=== PATIENT | female | born 1990 | race Caucasian/White ===

== ENCOUNTER 2024-06-02 20:19 | Inpatient (IN) ==
[2024-06-02 21:13] LABS: Appearance Urine Turbid (Clear); Bacteria Urine Automated 4+ (None Seen); Bilirubin Urine Negative (Negative); Blood Urine Negative (Negative); Cast Urine Automated 0-2 /lpf (0-2); Color Urine Yellow; Glucose Urine UA Negative (Negative); Ketones Urine Negative (Negative); Leukocyte Esterase Urine 2+ (Negative); Nitrite Urine Positive (Negative); Protein Urine Negative (Negative); RBC Urine Automated 0-2 /hpf (0-2); Specific Gravity Urine 1.022 (1.000-1.030); Urobilinogen Urine Negative (Negative); WBC Urine Automated 21-50 /hpf (0-5); pH Urine 7.5 (4.5-7.5)
[2024-06-02 21:52] LABS: Acetaminophen < 3 ug/ml (10-30); Salicylate < 3.0 mg/dl (3.0-30)
[2024-06-02 21:53] LABS: Amphetamines+Metham, Urine Neg (Neg); Barbiturates, Urine Neg (Neg); Benzodiazepine, Urine Neg (Neg); Cocaine, Urine Neg (Neg); Fentanyl, Urine Neg (Neg); MDMA (Ecstacy), Urine Neg (Neg); Marijuana, Urine Neg (Neg); Methadone, Urine Neg (Neg); Opiate, Urine Neg (Neg); Phencyclidine, Urine Neg (Neg)
[2024-06-02 22:01] LABS: Thyroid Stimulating Hormone 0.779 uIu/ml (0.300-4.500)
[2024-06-02 22:05] LABS: Albumin Level 4.3 gm/dl (3.4-5.0); Bilirubin,Total 0.5 mg/dl (0.2-1.0); Calcium 9.6 mg/dl (8.6-10.3); Potassium 4.5 mmol/L (3.5-5.1)
[2024-06-02 22:11] LABS: Albumin Globulin Ratio 1.8 (0.9-2); BUN Creatinine Ratio 17.2 (10-20); Creatinine Clr Calc Pharmacy 122.7 ml/min; Globulin 2.4 gm/dl (2.5-4.0); Total Protein 6.7 gm/dl (6.0-8.3)
[2024-06-02 22:54] LABS: Basophils # (auto) 0.03 K/uL (0.00-0.20); Basophils % (auto) 0.5 %; Eosinophils # (auto) 0.19 K/uL (0.00-0.50); Hematocrit (blood only) 40.3 % (37.0-47.0); Hemoglobin 14.2 g/dl (12.0-16.0); Immature Granulocytes # (auto) 0.01 K/uL (0.01-0.20); Immature Granulocytes % (auto) 0.2 %; Lymphocytes # (auto) 2.21 K/uL (1.20-3.40); Lymphocytes % (auto) 34.5 %; Mean Corpuscular Hemoglobin 32.3 pg (25.0-34.0); Mean Corpuscular Hgb Conc 35.2 g/dL (32.0-36.0); Mean Corpuscular Volume 91.8 fL (80.0-100.0); Mean Platelet Volume 9.5 fL (9.4-12.4); Monocytes # (auto) 0.68 K/uL (0.11-0.59); Monocytes % (auto) 10.6 %; Neutrophils # (auto) 3.29 K/uL (1.40-6.50); Neutrophils % (auto) 51.2 %; Platelet Count 166 K/uL (130-400); RDW Coefficient of Variation 11.5 % (11.5-14.5); Red Blood Count 4.39 M/uL (4.20-5.40); White Blood Count 6.41 K/ul (4.8-10.8)
[2024-06-02 23:50] LABS: Pregnancy Test, Serum Negative (Negative)
[2024-06-03] MEDS ORDERED: QUEtiapine FUMARATE 100 MG TABLET PO SCH (00:45)
[2024-06-03] MEDS: GABAPENTIN 100 MG CAP PO SCH (01:34)
[2024-06-03] MEDS: QUEtiapine FUMARATE 100 MG TABLET PO SCH (01:34)
[2024-06-03] MEDS: CEFDINIR 300 MG CAP PO STA (01:34)
--- NOTE | 2024-06-03 02:03 | Emergency Department Note ---
History of Present Illness General Chief complaint: Mental Health Evaluation Stated complaint: MEDICAL SCREENING, ADAN PT Time Seen by Provider: 06/02/24 20:29 History of Present Illness Provider complaint: Mental health evaluation 33-year-old female presents emergency department for bhagat well evaluation. Patient reports she is depressed. She reports she lost interest in all of her previous things used to give her sweta. She reports procedure sleeping pattern, no change in her appetite, no changes in her abilities concentrate, no feelings of guilt or remorse. Patient denies any suicidal or homicidal ideation. Patient denies any chance of . She denies any drugs or alcohol. She denies any access to any firearms. Home Medications Medication Instructions Recorded Confirmed Type gabapentin 600 mg tablet 100 mg 3XD 06/02/24 06/02/24 History quetiapine 100 mg tablet 150 mg 1XD 06/02/24 06/02/24 History Allergies Allergy/AdvReac Type Severity Reaction Status Date / Time No Known Allergies Allergy Unverified 06/02/24 22:25 Past Med/Surg History Problem List (Updated 06/03/24 @ 02:04 by Bob Loera MD) Depression (Acute) Medical History (Updated 06/03/24 @ 02:04 by Bob Loera MD) Depression Bipolar disorder Anxiety Social History Smoking Status: Current every day smoker Gender Identity: Female Physical Exam Vital Signs Vital Signs - 24 hr 06/02/24 20:22 06/02/24 22:20 Temperature 36.6 C Temperature Source Temporal Artery Scan Pulse Rate 75 Pulse Rate [Right Brachial] 64 Pulse Rhythm [Right Brachial] Regular Pulse Strength [Right Brachial] Normal Respiratory Rate 16 14 Respiratory Effort / Characteristics Non-Labored Spontaneous Non-Labored Respiratory Depth Normal Normal Respiratory Pattern Regular Regular Blood Pressure 120/67 Blood Pressure [Right Arm] 105/68 Blood Pressure Mean 84 Blood Pressure Mean [Right Arm] 80 Blood Pressure Position [Right Arm] Lying Pulse Oximetry 96 98 Oxygen Delivery Method Room Air Room Air Sepsis Recent Fever Within 48 Hours No Sepsis New/Unexplained Change in Mental Status N/A Sepsis Action Taken by Nursing No Action Required Physical Exam GENERAL: oriented to person, place, and time. appears well-developed and well- nourished. HENT: Exam performed. - Head: Normocephalic and atraumatic. EYES: Conjunctivae and EOM are normal. Right eye exhibits no discharge. Left eye exhibits no discharge. No scleral icterus. NECK: Normal range of motion. Neck supple. No JVD present. CV: Normal rate, regular rhythm, normal heart sounds and intact distal pulses. There is no peripheral edema. Palpable radial pulses bue. PULM/CHEST: Effort normal and breath sounds normal. No respiratory distress. No stridor. no wheezes. no rales. ABD: The abdomen is soft. There is no tenderness. NEURO: Motor and sensation grossly intact. SKIN: Skin is warm and dry. He is not diaphoretic. PSYCH: Depressed. Bizarre affect. No suicidal ideation or homicidal ideation. Course Course 2028: The patient was evaluated in room A8. A complete history and physical exam was performed 0130: Vital signs stable. Patient medically clear. Patient does have UTI. Cefdinir ordered for the patient. 0203: Vital signs stable. Case management states that the patient will be excepted to [facility] S. for inpatient psychiatric treatment. Administered Medications Gabapentin (Gabapentin 100 Mg Cap) 100 mg PO TID PAWEL Stop: 07/03/24 00:44 Last Admin: 06/03/24 01:34 Dose: 100 mg Documented By: ORTEGA Quetiapine Fumarate (Quetiapine Fumarate 100 Mg Tablet) 150 mg PO HS PAWEL Stop: 07/03/24 00:59 Last Admin: 06/03/24 01:34 Dose: 150 mg Documented By: ORTEGA Discontinued Medications Cefdinir (Cefdinir 300 Mg Cap) 300 mg PO ONE STA; Protocol Stop: 06/03/24 01:28 Last Admin: 06/03/24 01:34 Dose: 300 mg Documented By: ORTEGA Medical Decision Making Laboratory Data Attestation: I reviewed the patient's lab results. 06/02/24 22:39 06/02/24 21:05 Lab Results 06/02/24 06/02/24 06/02/24 Range/Units 20:34 21:05 21:08 WBC Cancelled RBC Cancelled Hgb Cancelled Hct Cancelled MCV Cancelled MCH Cancelled MCHC Cancelled RDW Std Deviation Cancelled RDW Coeff of Mandy Cancelled Plt Count Cancelled MPV Cancelled Immature Gran % (Auto) Cancelled Neut % (Auto) Cancelled Lymph % (Auto) Cancelled [place] % (Auto) Cancelled Eos % (Auto) Cancelled Baso % (Auto) Cancelled Neut # (Auto) Cancelled Lymph # (Auto) Cancelled [place] # (Auto) Cancelled Eos # (Auto) Cancelled Baso # (Auto) Cancelled Immature Gran # (Auto) Cancelled Absolute Nucleated RBC Cancelled Nucleated RBC % (auto) Cancelled Neutrophils % (Manual) Cancelled Band Neutrophils % Cancelled Lymphocytes % (Manual) Cancelled Prolymphocyte % Cancelled Reactive Lymphs % (Man) Cancelled Monocytes % (Manual) Cancelled Eosinophils % (Manual) Cancelled Basophils % (Manual) Cancelled Metamyelocytes % (Man) Cancelled Myelocytes % (Man) Cancelled Promyelocytes % (Man) Cancelled Blast Cells % (Manual) Cancelled Plasma Cell % (Manual) Cancelled Other Cells % Cancelled Nucleated RBC % Cancelled Neutrophils # (Manual) Cancelled Band Neutrophils # Cancelled Total Absolute Neuts Cancelled Lymphocytes # (Manual) Cancelled Prolymphocyte # Cancelled Reactive Lymphs # Cancelled Total Abs Lymphocytes Cancelled Monocytes # (Manual) Cancelled Eosinophils # (Manual) Cancelled Basophils # (Manual) Cancelled Metamyelocytes # (Man) Cancelled Myelocytes # (Manual) Cancelled Promyelocytes # (Man) Cancelled Blast Cells # (Man) Cancelled Plasma Cell # (Manual) Cancelled Other Cells # Cancelled Nucleated RBCs # (Man) Cancelled Hypersegmented Neuts Cancelled Hyposegmented Neuts Cancelled Hypogranular Neuts Cancelled Large Granular Lymphs Cancelled # Lrg Granular Lymphs Cancelled Hairy Cells Cancelled Smudge Cells Cancelled Toxic Granulation Cancelled Toxic Vacuolation Cancelled Dohle Bodies Cancelled Kaitlyn Rods Cancelled Platelet Estimate Cancelled Hypogranular Platelets Cancelled Giant Platelets Cancelled Platelet Satelliting Cancelled RBC Morphology Cancelled Polychromasia Cancelled Hypochromasia Cancelled Poikilocytosis Cancelled Basophilic Stippling Cancelled Anisocytosis Cancelled Microcytosis Cancelled Macrocytosis Cancelled Spherocytes Cancelled Pappenheimer Bodies Cancelled Sickle Cells Cancelled Target Cells Cancelled Tear Drop Cells Cancelled Ovalocytes Cancelled Stomatocytes Cancelled [place] Bodies Cancelled Echinocytes Cancelled Acanthocytes (Spur) Cancelled Rouleaux Cancelled RBC Agglutinates Cancelled Schistocytes Cancelled Sezary Cell Cancelled Sodium 139 (136-145) mmol/L Potassium 4.5 (3.5-5.1) mmol/L Chloride 108 H (98-107) mmol/L Carbon Dioxide 23 (21-32) mmol/L Anion Gap 8 (3-11) BUN 11 (6-23) mg/dl Creatinine 0.64 (0.6-1.2) mg/dl Est Cr Clr Drug Dosing 122.7 ml/min eGFR 120.34 BUN/Creatinine Ratio 17.2 (10-20) Glucose 82 (70-99(Fasting)) mg/dl Calcium 9.6 (8.6-10.3) mg/dl Total Bilirubin 0.5 (0.2-1.0) mg/dl AST 52 H (13-39) U/L ALT 61 H (7-52) U/L Alkaline Phosphatase 43 (34-104) U/L Total Protein 6.7 (6.0-8.3) gm/dl Albumin 4.3 (3.4-5.0) gm/dl Globulin 2.4 L (2.5-4.0) gm/dl Albumin/Globulin Ratio 1.8 (0.9-2) TSH 0.779 (0.300-4.500) uIu/ml HCG, Qual Negative (Negative) Urine Color Yellow Urine Appearance Turbid A (Clear) Urine pH 7.5 (4.5-7.5) Ur Specific Rankin 1.022 (1.000-1.030) Urine Protein Negative (Negative) Urine Glucose (UA) Negative (Negative) Urine Ketones Negative (Negative) Urine Blood Negative (Negative) Urine Nitrite Positive A (Negative) Urine Bilirubin Negative (Negative) Urine Urobilinogen Negative (Negative) Ur Leukocyte Esterase 2+ H (Negative) Urine WBC (Auto) 21-50 H (0-5) /hpf Urine RBC (Auto) 0-2 (0-2) /hpf U Hyaline Cast (Auto) 0-2 (0-2) /lpf U Epithel Cells (Auto) 6-10 H (0-2) /hpf Urine Bacteria (Auto) 4+ H (None Seen) Salicylates < 3.0 L (3.0-30) mg/dl Urine Opiates Screen Neg (Neg) Ur Methadone, Qual Neg (Neg) Urine Fentanyl Screen Neg (Neg) Acetaminophen < 3 L (10-30) ug/ml Urine Barbiturates Neg (Neg) Ur Phencyclidine (PCP) Neg (Neg) U Amphetamin/Meth Scrn Neg (Neg) MDMA (Ecstasy) Screen Neg (Neg) U Benzodiazepines Scrn Neg (Neg) Ur Cocaine Metabolite Neg (Neg) U Marijuana (THC) Screen Neg (Neg) Ethyl Alcohol mg/dL Cancelled SARS-CoV-2, RNA, NAAT NEGATIVE (NEGATIVE) Blood Parasites ID Cancelled 06/02/24 06/02/24 Range/Units 22:39 23:57 WBC 6.41 RBC 4.39 Hgb 14.2 Hct 40.3 MCV 91.8 MCH 32.3 MCHC 35.2 RDW Std Deviation 39.0 RDW Coeff of Mandy 11.5 Plt Count 166 MPV 9.5 Immature Gran % (Auto) 0.2 Neut % (Auto) 51.2 Lymph % (Auto) 34.5 [place] % (Auto) 10.6 Eos % (Auto) 3.0 Baso % (Auto) 0.5 Neut # (Auto) 3.29 Lymph # (Auto) 2.21 [place] # (Auto) 0.68 H Eos # (Auto) 0.19 Baso # (Auto) 0.03 Immature Gran # (Auto) 0.01 Absolute Nucleated RBC Nucleated RBC % (auto) Neutrophils % (Manual) Band Neutrophils % Lymphocytes % (Manual) Prolymphocyte % Reactive Lymphs % (Man) Monocytes % (Manual) Eosinophils % (Manual) Basophils % (Manual) Metamyelocytes % (Man) Myelocytes % (Man) Promyelocytes % (Man) Blast Cells % (Manual) Plasma Cell % (Manual) Other Cells % Nucleated RBC % Neutrophils # (Manual) Band Neutrophils # Total Absolute Neuts Lymphocytes # (Manual) Prolymphocyte # Reactive Lymphs # Total Abs Lymphocytes Monocytes # (Manual) Eosinophils # (Manual) Basophils # (Manual) Metamyelocytes # (Man) Myelocytes # (Manual) Promyelocytes # (Man) Blast Cells # (Man) Plasma Cell # (Manual) Other Cells # Nucleated RBCs # (Man) Hypersegmented Neuts Hyposegmented Neuts Hypogranular Neuts Large Granular Lymphs # Lrg Granular Lymphs Hairy Cells Smudge Cells Toxic Granulation Toxic Vacuolation Dohle Bodies Kaitlyn Rods Platelet Estimate Hypogranular Platelets Giant Platelets Platelet Satelliting RBC Morphology Polychromasia Hypochromasia Poikilocytosis Basophilic Stippling Anisocytosis Microcytosis Macrocytosis Spherocytes Pappenheimer Bodies Sickle Cells Target Cells Tear Drop Cells Ovalocytes Stomatocytes [place] Bodies Echinocytes Acanthocytes (Spur) Rouleaux RBC Agglutinates Schistocytes Sezary Cell Sodium (136-145) mmol/L Potassium (3.5-5.1) mmol/L Chloride (98-107) mmol/L Carbon Dioxide (21-32) mmol/L Anion Gap (3-11) BUN (6-23) mg/dl Creatinine (0.6-1.2) mg/dl Est Cr Clr Drug Dosing ml/min eGFR BUN/Creatinine Ratio (10-20) Glucose (70-99(Fasting)) mg/dl Calcium (8.6-10.3) mg/dl Total Bilirubin (0.2-1.0) mg/dl AST (13-39) U/L ALT (7-52) U/L Alkaline Phosphatase (34-104) U/L Total Protein (6.0-8.3) gm/dl Albumin (3.4-5.0) gm/dl Globulin (2.5-4.0) gm/dl Albumin/Globulin Ratio (0.9-2) TSH (0.300-4.500) uIu/ml HCG, Qual (Negative) Urine Color Urine Appearance (Clear) Urine pH (4.5-7.5) Ur Specific Rankin (1.000-1.030) Urine Protein (Negative) Urine Glucose (UA) (Negative) Urine Ketones (Negative) Urine Blood (Negative) Urine Nitrite (Negative) Urine Bilirubin (Negative) Urine Urobilinogen (Negative) Ur Leukocyte Esterase (Negative) Urine WBC (Auto) (0-5) /hpf Urine RBC (Auto) (0-2) /hpf U Hyaline Cast (Auto) (0-2) /lpf U Epithel Cells (Auto) (0-2) /hpf Urine Bacteria (Auto) (None Seen) Salicylates (3.0-30) mg/dl Urine Opiates Screen (Neg) Ur Methadone, Qual (Neg) Urine Fentanyl Screen (Neg) Acetaminophen (10-30) ug/ml Urine Barbiturates (Neg) Ur Phencyclidine (PCP) (Neg) U Amphetamin/Meth Scrn (Neg) MDMA (Ecstasy) Screen (Neg) U Benzodiazepines Scrn (Neg) Ur Cocaine Metabolite (Neg) U Marijuana (THC) Screen (Neg) Ethyl Alcohol mg/dL < 10.0 SARS-CoV-2, RNA, NAAT (NEGATIVE) Blood Parasites ID MDM Narrative 2028: The patient was evaluated in room A8. A complete history and physical exam was performed 0130: Vital signs stable. Patient medically clear. Patient does have UTI. Cefdinir ordered for the patient. 0203: Vital signs stable. Case management states that the patient will be excepted to 3 S. for inpatient psychiatric treatment. Impression & Plan Depression Discharge Plan Visit Data Chief Complaint: Mental Health Evaluation Stated Complaint: MEDICAL SCREENING, ARELLANO PT ED Provider: Bob Loera Discharge Problem: Depression Patient Disposition: Admitted As Inpatient Forms Stand Alone Forms: [facility], Suicide Prevention Resources Prescriptions Prescriptions: No Action gabapentin 600 mg tablet 100 mg 3XD quetiapine 100 mg tablet 150 mg 1XD Referrals Referrals: Aldo Anthony [Other] Discharge Problem: Depression Qualifiers: Depression Type: unspecified Qualified Code(s): F32.A - Depression, unspecified
[2024-06-03] MEDS ORDERED: hydrOXYzine HCl 25 MG TAB PO PRN (02:06)
--- NOTE | 2024-06-03 03:04 | Emergency Department Note ---
ED Visit Note Patient signed out to me at change of shift from Dr. Loera. Patient accepted to 3 [facility]. 201 signed by me. .
[2024-06-03] MEDS ORDERED: BISMUTH SUBSALICYLATE 262 MG CHEW PO PRN (05:47)
[2024-06-03] MEDS ORDERED: MAGNESIUM HYDROXIDE SUSP 30 ML UDC PO PRN (05:47)
[2024-06-03] MEDS ORDERED: ALUMINUM/MAGNESIUM SUSP 30 ML UDC PO PRN (05:47)
[2024-06-03] MEDS ORDERED: SODIUM CHLORIDE 0.65% NA SOLN 45 ML (OCEAN) PRN (05:47)
[2024-06-03] MEDS ORDERED: NICOTINE POLACRILEX 2 MG GUM MT PRN (05:52)
--- OUTSIDE RECORDS SUMMARY | 2024-06-03 07:34 | External Medical Summary ---
Author Name Unknown Address Unknown Organization : Laboratory Report Ordering Provider Test Date Status DANIELLA GODINEZ 02/25/2024 10:38:05 Final Observation Date Value Abnormality Reference (Units ) Status Mycobacterium tuberculosis stimulated gamma interferon [Interpretation] in Blood Qualitative 02/25/2024 10:38:05 NEGATIVE NEGATIVE Final Negative test result. M. tub erculosis complex
infection unlikely. Gamma interferon background [Units/volume] in Blood by Immunoassay 02/25/2024 10:38:05 0.06 (IU/mL) Final Mitogen stimulated gamma int erferon [Units/volume] corrected for background in Blood 02/25/2024 10:38:05 7.73 (IU/mL) Final Mycobacterium tuberculosis s timulated gamma interferon release by CD4+ T-cells [Units/volume] corrected for background in Blood 02/25/2024 10:38:05 0.00 (IU/mL) Final Mycobacterium tuberculosis s timulated gamma interferon release by CD4+ and CD8+ T-cells [Units/volume] corrected for background in Blood 02/25/2024 10:38:05 0.02 (IU/mL) Final The Nil tube value reflects the background interferon
gamma immune response of the patient's blood sample.
This value has been subtracted from the patient's
displayed TB and Mitogen results.
Lower than expected results with the Mitogen tube
prevent false-negative Quantiferon readings by detect-
ing a patient with a potential immune suppressive
condition and/or suboptimal pre-analytical specimen
handling.
The TB1 Antigen tube is coated with the M.
tuberculosis-specific antigens designed to elicit
responses from TB antigen primed CD4+ helper
T-lymphocytes.
The TB2 Antigen tube is coated with the M.
tuberculosis-specific antigens designed to elicit
responses from TB antigen primed CD4+ helper and CD8+
cytotoxic T-lymphocytes.
For additional information, please refer to
http://education.Availigent.LiveOffice/faq/[email or web address]
(This link is being provided for information/
educational purposes only.)

Test Performed at:
[facility]
[address] [facility] [facility]
[place] [address]
Zaki Joseph M.D., Ph.D.,Director of Laboratories Performing Location
--- OUTSIDE RECORDS SUMMARY | 2024-06-03 07:34 | External Medical Summary ---
Author Name Unknown Address Unknown Organization [id number]:[facility] - [address] [place] [id number] Laboratory Report Ordering Provider Test Date Status DOMENICO ERNANDEZ 05/24/2024 13:02:36 Final Observation Date Value Abnormality Reference (Units) Status Hep C RNA viral load 05/24/2024 13:02:36 [id number] Above high normal <=0 (IU/mL) Final Log of HCV RNA 05/24/2024 13:02:36 6.09 Above high normal <=0.00 (log IU/mL) Final Genetic variant clinical significance [Interpretation] in Blood or Tissue by Molecular genetics method 05/24/2024 13:02:36 Test results have been reported to [facility]. Final Genetic variant clinical significance [Interpretation] in Blood or Tissue by Molecular genetics method 05/24/2024 13:02:36 Final Genetic variant clinical significance [Interpretation] in Blood or Tissue by Molecular genetics method 05/24/2024 13:02:36 The HCV assay is an in vitro nucleic acid amplification test for both the detection and quantitation of hepatitis C virus (HCV) RNA, in human EDTA plasma, of HCV antibody positive or HCV-infected individuals. Specimens containing HCV genotypes 1 to 6 are validated for detection and quantitation in the assay. This assay is intended for use as an aid in the diagnosis of HCV infection in the following populations: individuals who are HCV antibody-positive and with evidence of liver disease, individuals suspected to be actively infected with HCV antibody evidence, and individuals at risk for HCV infection with antibodies to HCV. Detection of HCV RNA indicates that the virus is replicating and therefore is evidence of active infection. This assay is intended for use as an aid in the management of HCV-infected patients undergoing anti-viral therapy. The assay can be used to quantify HCV RNA in serum of patients with chronic HCV infection (HCV antibody-positive), monitor disease progression in chronic HCV infection and response to antiviral therapy and determine cure and detection of relapse after completion of antiviral therapy. The results must be interpreted within the context of all relevant clinical and laboratory findings. This assay has not been approved for use as a screening test for the presence of HCV in blood or blood products. Final Genetic variant clinical significance [Interpretation] in Blood or Tissue by Molecular genetics method 05/24/2024 13:02:36 Final Additional comments [RFC] 05/24/2024 13:02:36 The HCV assay is an in vitro nucleic acid amplification test using an automated system for specimen processing, amplification and detection. Detection of antibodies to HCV (anti-HCV) indicates prior exposure to hepatitis C but does not distinguish between cleared or active infection (i.e where the virus is still replicating). Detection of HCV RNA with the detection of anti-HCV identifies an active hepatitis C infection. The results of HCV RNA testing together with other biochemical and clinical information, may be used to confirm an active HCV infection, measure the level of virus in the blood and assist in HCV prevention counseling, medical care and treatment decision making. The test can quantitate HCV RNA over the reportable range of 15-100,000,000 IU/mL (1.18 log to 8.00 log IU/mL). Final Additional comments [RFC] 05/24/2024 13:02:36 Final Additional comments [RFC] 05/24/2024 13:02:36 The assay was verified and performance characteristics determined by the Molecular Diagnostics Laboratory at [facility]. This test is used for clinical purposes. Final FDA package insert References section 05/24/2024 13:02:36 1. Hamilton P, Huang C, Charleen S: How to Use Virological Tools for the Optimal Management of Chronic Hepatitis C. Liver Int 2011;31 Suppl 1:3-12. Final FDA package insert References section 05/24/2024 13:02:36 2. Centers for Disease Control and Prevention. Testing for HCV Infection: an Update of Guidance for Clinicians and Laboratorians. MMWR Morb Mortal Wkly Rep 2013;62(18):362-365. Final FDA package insert References section 05/24/2024 13:02:36 3. [place] Association for the Study of Liver Diseases and Infectious Diseases Society of [place]: HCV Guidance: Recommendations for Testing, Managing, and Treating Hepatitis C. Accessed September 26, 2016. Available at www.hcvguidelines.or g/lacc-hcyung-xgdh Final FDA package insert References section 05/24/2024 13:02:36 Final Performing Location [facility] - [address] [facility] [id number]
--- OUTSIDE RECORDS SUMMARY | 2024-06-03 07:34 | External Medical Summary | Summary of Care ---
Author Name Unknown Organization [facility] Address [address] [place] [address] Phone [phone] Care Team Providers Care Consulting Hr Professional Name Role Phone Aldo Anthony MD Primary Care P rovider Encounter Details Date Type Department Care Team (Late st Contact Info) Description 04/04/2024 Population Health External Data Unspecified Department Allergies No known active allergiesdocumented as of this encounter (statuses as of 04/04/2024) Medications Buprenorphine HCl-Naloxone HCl 8-2 MG Sublingual Tablet Sublingual (Suboxone) Place 1 Tablet under the tongue in the morning. 4 Active Naloxone HCl 4 MG/0.1ML Nasal Liquid (Narcan Nasal) Administer 0.1 mL into nostril as needed. 4 Active Gabapentin 600 MG Oral Tablet (Neurontin)Ivonne cations:BRIDGET (generalized anxiety disorder) Take 1 Tablet by mouth in the morning and 1 Tablet at noon and 1 Tablet before bedtime. 90 Tablet 2 4 Active QUEtiapine Fumarate 100 MG Oral Tablet (SEROquel)Indic ations:Substanc e induced mood disorder (HCC) Take 1-1.5 Tablets by mouth at bedtime. 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 02/22/2024 History of opioid abuse 07/04/2022 History of substance use disorder 06/30/2022 BRIDGET (generalized anxiety disorder) 05/12/2022 Moderate episode of recurrent major depressive d isorder 05/12/2022 Mood disorder 05/12/2022 Opioid use disorder, severe, dependence 04/09/19 Amphetamine abuse 08/22/2018 Chronic hepatitis C without hepatic coma 019 Substance induced mood disorder documented as of this encounter (statuses as of 04/04/2024) Resolved Problems Problem Noted Date Diagnosed Date Resolved Date Amphetamine overdose of undetermined intent 06/11/2019 11/08/2019 Drug intoxication 08/25/2018 11/08/2019 Suicidal behavior without at tempted self-injury 08/24/2018 11/08/2019 Toxic encephalopathy 08/22/2018 019 Intentional drug overdose 08/22/2018 Bath salt overdose, intentio nal self-harm, initial encounter 08/22/2018 11/08/2019 Acute respiratory failure wi th hypoxia and hypercapnia 06/27/2018 12/14/2018 Auditory hallucination 06/27/201812/14 Abnormal LFTs 06/27/2018 04/09/2021 Encounter for monitoring Sub oxone maintenance therapy 05/12/2016 04/09/2021 Major depressive disorder 07/09/2009 Overview (01/06/2017): ICD-10 update of inactive term Adolescent Acne 11/17/2007 11/08/2019 ADVANCE DIRECTIVE INFORMATION 08/12/2006 01/18/2024 Overview (08/12/2006): Not applicable (under age of 18) documented as of this encounter (statuses as of 04/04/2024) Immunizations Name Administration Dates Next Due DTaP Dipth/Tet/Acell Pertussis (Infanrix), Peds 06/02/1996,04/09/1993,09/04/1992 HIB PRP-OMP, 3 dose (Pedvax) 04/09/1993,09/04/18 93 HPV Vaccine, 4-Valent 12/29/2006,08/21/2006,0405/2006 Hepatitis B, 0-19 yrs 01/05/1997,09/02/1996,05/15 MMR - Measles/Mumps/Rubella Vaccine 06/02/1996,0 04/09/1993 Meningococcal Conjugate Vacc ine (Menactra/Menveo) 06/16/2006 Meningococcal MCV4P Conjugat e Vaccine (Menactra) 06/16/2006 OPV - Polio Virus Vaccine (Oral) 06/02/1996,03/17 PPD 07/01/2021,06/22/2021 Seasonal Influenza Vac., MDV , IM, 0.5 mL (Fluzone) 04/30/2011,12/24/2009 TDAP, Age 7 and older, IM (Adacel) 07/09/2009 Varicella Vaccine (Chicken Pox) 12/01/2007 documented as of this encounter Social History Tobacco Use Types Packs/Day Years Used Date Smoking Tobacco: Every Day Cigarettes 1 5 Smokeless Tobacco: Never Alcohol Use Standard Drinks/Week Comments No 0 (1 standard drink = 0.6 oz pur e alcohol) PHQ-2 Answer Date Recorded PHQ Adult Total Score 0 12/09/2023 Hunger Vital Sign Answer Date Recorded Within the past 12 months, y ou worried that your food would run out before you got the money to buy more. Never true 05/06/19 24 Within the past 12 months, t he food you bought just didn't last and you didn't have money to get more. Never true 05/06/2023 Childcare Answer Date Recorded Do you feel overwhelmed with taking care of a child, family member or friend? No 05/06/2023 Does your family need help f inding childcare? (Household - for ages 0-17 years) Not on file 05/06/2023 Clothing Answer Date Recorded Have you been unable to get clothing when it was really needed? Yes 05/06/2023 Is your family able to get c lothes or diapers when needed? (Household - for ages 0-17 years) Not on file 05/06/2023 Personal Safety Answer Date Recorded Do you feel unsafe or have concerns for your saf ety? No 05/06/2023 Do you have concerns for you r family's safety? (Household - for ages 0-17 years) Not on file 05/06/2023 Utilities Answer Date Recorded Do you have trouble paying y our heating, water, or electric bill? Yes 05/06/2023 Is your family able to pay t he heat, water, or electric bill? (Household - for ages 0-17 years) Not on file 05/06/2023 Does your family have access to good internet? (Household - for ages 0-17 years) Not on file 05/06/2023 Employment Status Answer Date Recorded Are you unemployed or without regular income? Ye s 05/06/2023 Does the household have a re gular source of income? (Household - for ages 0-17 years) Not on file 05/06/2023 Social Connections Answer Date Recorded How often do you feel lonely or isolated from th ose around you? Always 05/06/2023 Financial Resource Strain Answer Date R ecorded Do you have any trouble payi ng for your medications, or do you think you might in the future? Yes 05/06/2023 Does your family have troubl e paying for medicine? (Household - for ages 0-17 years) Not on file 05/06/2023 Transportation Needs Answer Date Record ed READ ONLY Do you have troubl e getting a ride to medical visits or work? Sometimes True 05/06/2023 Does your family have a hard time getting a ride to doctors visits? (Household - for ages 0-17 years) Not on file 05/06/2023 Has lack of transportation k ept you from medical appointments, meetings, work, or from getting things needed for daily living? Check all that apply. (Adult - for ages 18 years and over) Not on file 05/06/2023 Do you (or your family) have trouble finding or paying for a ride (transportation)? (Household - for ages 0-17 years) Not on file 05/06/2023 Housing Stability Answer Date Recorded Do you currently live in a s helter or have no steady place to sleep at night? No 05/06/2023 READ ONLY Do you think you a re at risk of becoming homeless? No 05/06/2023 Does your family worry about paying for your home or becoming homeless? (Household - for ages 0-17 years) Not on file 0 05/06/2023 Are you homeless or worried that you might be in the future? (Adult - for ages 18 years and over) Not on file Are you (or your family) mary eless or worried that you might be in the future? (Household - for ages 0-17 years) Not on file Food Insecurity Answer Date Recorded Do you need food for this week? No 05/06/2023 Are you able to get enough f ood for your family? (Household - for ages 0-17 years) Not on file 05/06/2023 Does your family need food t his week? (Household - for ages 0-17 years) Not on file 05/06/2023 Do you always have enough fo od for your family? (Household - for ages 0-17 years) Not on file 05/06/2023 Comments No Sex and Gender Information Value Date Recorded Sex Assigned at Female 05/06/2023 3:50 PM EST Legal Sex Female 6:05 AM EST Gender Identity Female 05/06/2023 3:50 PM EST Sexual Orientation Straight 05/06/2023 3: 50 PM EST documented as of this encounter Functional Status * Are you deaf or do you have serious difficulty hearing? Answer Date of Assessment Author No 06/11/2019 11:41 PM Aakash Gonzalez RN * Are you blind or do you have serious difficulty seeing, even when wearing glasses? Answer Date of Assessment Author No 06/11/2019 11:41 PM Aakash Gonzalez RN * Do you have serious difficulty walking or climbing stairs? (5 years old or older) Answer Date of Assessment Author No 03/27/2020 4:18 PM EST Laura Oseguera MSW * Do you have difficulty dressing or bathing? (5 years old or older) Answer Date of Assessment Author No 06/11/2019 11:41 PM Aakash Gonzalez RN * Because of a physical, mental, or emotional condition, do you have difficulty doing errands alone such as visiting a doctors office or shopping? (15 years old or older) Answer Date of Assessment Author No 06/11/2019 11:41 PM Aakash Gonzalez RN documented as of this encounter Mental Status * Because of a physical, mental, or emotional condition, do you have serious difficulty concentrating, remembering, or making decisions? (5 years old or older) Answer Entry Date Author No 06/11/2019 11:41 PM EDT Aakash Dodge RN documented in this encounter Plan of Treatment Upcoming Encounters Date Type Department Care Team (Late st Contact Info) Description 06/08/2024 3:45 PM EDT Office Visit Gynecology/Obstetics [place] [address] [facility] [place] [address] Kelsea Greene PA-C [address] [facility], [place] [address] Health Maintenance Due Date Last Done Comments Pneumococcal Vaccine: Pediatrics (0 to 5 Years) and At-Risk Patients (6 to 18 Years and 19+ Years) (1 of 2 - PCV) 10/30/2010 DTap/Tdap Vaccines (7 - Td or Tdap) 07/10/2019 07/09/2009, 11/06/2003, 06/02/1996, Additional history exists HPV/Co-Test 10/30/2021 Cervical Cancer Screening 11/05/2021 Pap Smear 11/05/2021 11/05/2018 COVID-19 Vaccine ( season) 2023 Influenza Vaccine (FLU shot) (#1) 2023 04/30/2011, 12/24/2009 Depression Monitoring 12/08/2024 12/09/2023 Hepatitis B Vaccine Completed 01/05/1997, 09/02/1996, 06/02/1996 MENINGOCOCCAL (MENACTRA/MENVEO) Aged Out 06/16/2006, 06/16/2006 No longer eligibl e based on patient's age to complete this topic HPV (Gardasil) Vaccine Completed 7, 08/21/2006, 06/16/2006 documented as of this encounter Medical Devices Not on filedocumented as of this encounter Advance Directives * Full Code (Latest Code Status on File) Date Activated Date Inactivated Comments 06/15/2019 3:06 PM 06/20/2019 6:06 PM This order ref lects the patients wishes and were consensually agreed upon. * Full Code Date Activated Date Inactivated Comments 06/11/2019 8:02 AM 06/12/2019 3:43 PM This order r eflects the patients wishes and were consensually agreed upon. Question Answer Comments Discussion of Advance Directives occurred with: Patient Does the patient have a Living Will? No Does the patient have Health Care Power of Attor huong? No * Full Code Date Activated Date Inactivated Comments 08/22/2018 3:15 AM 08/25/2018 3:35 AM This order re flects the patients wishes and were consensually agreed upon. Question Answer Comments Discussion of Advance Directives occurred with: Not Discussed Does the patient have a Living Will? No Does the patient have Health Care Power of Attor huong? No * Full Code Date Activated Date Inactivated Comments 06/26/2018 4:00 PM 06/27/2018 5:58 PM This order r eflects the patients wishes and were consensually agreed upon. Question Answer Comments Discussion of Advance Directives occurred with: Not Discussed Does the patient have a Living Will? No Does the patient have Health Care Power of Attor huong? No * Full Code Date Activated Date Inactivated Comments 06/25/2018 10:34 PM 06/26/2018 3:59 PM This order reflects the patients wishes and were consensually agreed upon. Care Teams Consulting Hr Professional Relationship Specialty Start Date End Date Aldo Anthony MD [address] [place] [address] PCP - General Family Medicine 06/25/18 documented as of this encounter
--- OUTSIDE RECORDS SUMMARY | 2024-06-03 07:34 | External Medical Summary | Summary of Care ---
Author Name Unknown Organization [facility] Address [address] [place] [address] Phone [phone] Care Team Providers Care Hull Sorter Name Role Phone Aldo Anthony MD Primary Care P rovider Encounter Details Date Type Department Care Team (Late st Contact Info) Description 05/16/2024 Orders Only PATIENT PORTAL DO NOT DELETE THIS DEPT USED BY [place] [id number] Allergies No known active allergiesdocumented as of this encounter (statuses as of 05/16/2024) Medications Buprenorphine HCl-Naloxone HCl 8-2 MG Sublingual Tablet Sublingual (Suboxone) Place 1 Tablet under the tongue in the morning. 4 Active Gabapentin 600 MG Oral Tablet (Neurontin)Indica tions:BRIDGET (generalized anxiety disorder) TAKE 1 TABLET BY MOUTH IN THE MORNING AT AT NOON AND BEFORE BEDTIME 90 Tablet 2 5 Active QUEtiapine Fumarate 100 MG Oral Tablet (SEROquel)Indicat ions:Substance induced mood disorder (HCC) Take 1-1.5 Tablets by mouth at bedtime. 135 Tablet 1 5 Active Naloxone HCl 4 MG/0.1ML Nasal Liquid (Narcan Nasal) Administer 0.1 mL into nostril as needed. 5 Active Sublocade 300 MG/1.5ML Subcutaneous Solution Prefilled Syringe (buprenorphine ER)Indications:Op ioid use disorder, severe, dependence (HCC) Inject 300 mg under the skin Every Month for 2 doses. 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 02/22/2024 025 History of opioid abuse 07/04/202204/17 History of substance use disorder 06/30/2022 05/12/2024 Mood disorder 05/12/2022 05/12/2024 Amphetamine overdose of undetermined intent 06/11/2019 11/08/2019 Drug intoxication 08/25/2018 11/08/2019 Suicidal behavior without at tempted self-injury 08/24/2018 11/08/2019 Toxic encephalopathy 08/22/2018 019 Intentional drug overdose 08/22/2018 Amphetamine abuse 08/22/2018 05/12/2024 Bath salt overdose, intentio nal self-harm, initial [...] (08/12/2006): Not applicable (under age of 18) Substance induced mood disorder 05/12/2024 documented as of this encounter (statuses as of 05/16/2024) Immunizations Name Administration Dates Next Due DTaP Dipth/Tet/Acell Pertussis (Infanrix), Peds 06/02/1996,04/09/1993,09/04/1992 HIB PRP-OMP, 3 dose (Pedvax) 04/09/1993,09/04/18 93 HPV Vaccine, 4-Valent 12/29/2006,08/21/2006,05/2006 Hepatitis B, 0-19 yrs 01/05/1997,09/02/1996,05/15 MMR - [...] drink = 0.6 oz pur e alcohol) Denies 05/12/24 PHQ-2 Answer Date Recorded PHQ Adult Total [...] ages 0-17 years) Not on file 05/06/2023 Food Insecurity Answer Date Recorded Within the past 12 months, y ou worried that your food would run out before you got the money to buy more. Never true 05/06/19 24 Within the past 12 months, t he food you bought just didn't last and you didn't have money to get more. Never true 05/06/2023 Do you need food for this week? No 05/06/2023 Comments No Sex and Gender Information [...] of Assessment Author No 03/27/2020 4:18 PM Laura Díaz MSW * Do you have difficulty dressing [...] Entry Date Author No 06/11/2019 11:41 PM Aakash Gonzalez RN documented in this encounter Plan of Treatment Upcoming Encounters Date Type Department Care Team (Late st Contact Info) Description 06/08/2024 3:45 PM EDT Office Visit Gynecology/Obstetics [place] [address] [place] [address] Kelsea Greene PA-C [address] [place] [phone] Health Maintenance Due Date Last Done Comments [...] HPV (Gardasil) Vaccine Completed 7, 08/21/2006, 06/16/2006 Meningitis B Vaccine (Bexsero/Trumemba) Aged Out No longer eligible based on patient's age to complete this topic documented as of this encounter Medical Devices [...] and were consensually agreed upon. Care Teams Hull Sorter Relationship Specialty Start Date End Date Aldo Anthony MD [address] [place] [phone] PCP - General Family Medicine 06/25/18 documented as of this encounter
--- OUTSIDE RECORDS SUMMARY | 2024-06-03 07:34 | External Medical Summary ---
Author Name Unknown Address Unknown Organization K01:[facility] - [address] [place] [address] Laboratory Report Ordering Provider Test Date Status DOMENICO ERNANDEZ 05/24/2024 13:02:36 Final Observation Date Value Abnormality Reference (Units ) Status Hep C Ab 05/24/2024 13:02:36 Positive Abnormal Negative Final Test results reported to [facility]. Per protocol, HCV RNA quantitative assay has been ordered. Performing Location [facility] - [address] [place] [address]
--- OUTSIDE RECORDS SUMMARY | 2024-06-03 07:34 | External Medical Summary | Summary of Care ---
Author Name Unknown Organization [facility] Address [address] [place] [address] Phone [phone] Care Team Providers Care Correction Officer Name Role Phone Aldo Dinh MD Primary Care P rovider Reason for Visit * Reason Onset Date Comments Medication Refill 05/04/2024 Encounter Details Date Type Department Care Team ([facility] st Contact Info) Description 05/04/2024 Refill Family [address] [phone] Aldo Dinh MD [address] [place] [phone] Substance induced mood disorder (HCC) Allergies No known active allergiesdocumented as of this encounter (statuses as of 05/04/2024) Medications Buprenorphine HCl-Naloxone HCl 8-2 MG Sublingual Tablet Sublingual (Suboxone) Place 1 Tablet under the tongue in the morning. 4 Active Naloxone HCl 4 MG/0.1ML Nasal Liquid (Narcan Nasal) Administer 0.1 mL into nostril as needed. 4 Active Gabapentin 600 MG Oral Tablet (Neurontin)Ind ications:BRIDGET (generalized anxiety disorder) TAKE 1 TABLET BY MOUTH IN THE MORNING AT AT NOON AND BEFORE BEDTIME 90 Tablet 2 5 Active QUEtiapine Fumarate 100 MG Oral Tablet (SEROquel)Ivonne cations:Substa nce induced mood disorder (HCC) Take 1-1.5 Tablets by mouth at bedtime. 135 Tablet 1 5 Active QUEtiapine Fumarate 100 MG Oral Tablet (SEROquel)Ivonne cations:Substa nce induced mood disorder (HCC) Take 1-1.5 Tablets by mouth at bedtime. 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 02/22/2024 History of opioid abuse 07/04/2022 History of substance use disorder 06/30/2022 BRIDGET (generalized anxiety disorder) 05/12/2022 Moderate episode of recurrent major depressive d isorder 05/12/2022 Mood disorder 05/12/2022 Opioid use disorder, severe, dependence 04/09/19 22 Amphetamine abuse 08/22/2018 Chronic hepatitis C without hepatic coma 019 Substance induced mood disorder documented as of this encounter (statuses as of 05/04/2024) Resolved Problems Problem Noted Date Diagnosed Date [...] as of this encounter (statuses as of 05/04/2024) Immunizations Name Administration Dates Next Due DTaP [...] Aakash Gonzalez RN documented in this encounter Miscellaneous Notes * Telephone Encounter - Aldo Dinh MD - 05/04/2024 9:58 AM ESTSigned Prescriptions: Disp Refills QUEtiapine Fumarate 100 MG Oral Tablet (SE*135 Ta*1 Sig: Take 1-1.5 Tablets by mouth at bedtime. Authorizing Provider: ALDO DINH * Telephone Encounter - Jacqueline Tejada, equal opportunity representative - 05/04/2024 9:15 AM EST Did you pend patient's preferred pharmacy and medication before forwarding?yes Pharmacy: [id number] Pharmacy requesting 90 day as pended, please approve if appropriate. Pending Prescriptions: Disp Refills QUEtiapine Fumarate 100 MG Oral Tablet (S*135 Ta*1 Sig: Take 1-1.5 Tablets by mouth at bedtime. Last Visit: 06/30/2022 (in office), 12/09/2023 (telemedicine) Next Visit: Visit date not found If no future appointments scheduled, and last appointment is greater than a year ago, please schedule patient for a follow-up appointment Last date the medication was ordered: 12/09/2023 Is this request for a controlled substance?No Urine Drug Screen: Results for orders placed or performed in visit on 01/23/24 TOXICOLOGY, URINE SCREEN W/ CONFIRMATION Result Value Amphetamines Screen, U Negative Benzodiazepines Screen, U Negative Cannabinoids Screen, U Negative Cocaine Metabolite Screen, U Negative Fentanyl Screen, U Negative Hydrocodone Screen, U Negative Methadone Metabolite Screen, U Negative Morphine/Codeine Screen, U Negative Oxycodone Screen, U Negative Narrative Cutoff Concentrations: Drug Level Amphetamines 500 ng/mL Benzodiazepines 100 ng/mL Cannabinoids 50 ng/mL Cocaine Metabolite 150 ng/mL Fentanyl 1 ng/mL Hydrocodone / Hydromorphone 300 ng/mL Methadone Metabolite 100 ng/mL Morphine / Codeine 300 ng/mL Oxycodone / Oxymorphone 100 ng/mL Screening results are presumptive and can only be used for medical purposes. Positive screening results are reflexed to confirmatory testing. Results for orders placed or performed in visit on 07/09/21 TOXICOLOGY, URINE SCREEN Result Value Amphetamines Screen, U Negative Benzodiazepines Screen, U Negative Cannabinoids Screen, U Negative Cocaine Metabolite Screen, U Negative Fentanyl Screen, U Negative Hydrocodone Screen, U Negative Methadone Metabolite Screen, U Negative Morphine/Codeine Screen, U Negative Oxycodone Screen, U Negative Narrative Cutoff Concentrations: Drug Level Amphetamines 500 ng/mL Benzodiazepines 100 ng/mL Cannabinoids 50 ng/mL Cocaine Metabolite 150 ng/mL Fentanyl 1 ng/mL Hydrocodone / Hydromorphone 300 ng/mL Methadone Metabolite 100 ng/mL Morphine / Codeine 300 ng/mL Oxycodone / Oxymorphone 100 ng/mL Screening results are presumptive and can only be used for medical purposes. Confirmatory testing is available upon request. Results for orders placed or performed during the hospital encounter of 03/27/20 TOX URINE DRUG SCREEN ([facility] ONLY) Result Value Amphetamine NEGATIVE Barbiturates NEGATIVE Benzodiazepines NEGATIVE THC-COOH Confirmation, U NEGATIVE Cocaine Metabolite NEGATIVE Morphine / Codeine NEGATIVE METHADONE MEDICAL NEGATIVE OXYCODONE NEGATIVE LEONARDO COMMENT THE ABOVE SCREENING RESULTS ARE PRESUMPTIVE AND CAN ONLY BE USED FOR MEDICAL PURPOSES. CONFIRMATORY TESTING IS AVAILABLE UPON REQUEST. Cutoff Concentration Patient Phone Numbers Labs: Lab Results Component Value Date/Time CREAT 0.7 02/22/2024 03:42 PM CREAT 0.6 03/27/2020 03:48 PM POTASSIUM 4.0 02/22/2024 03:42 PM POTASSIUM 3.7 03/27/2020 03:48 PM TSH 2.36 03/31/2022 06:03 PM TSH 1.31 03/27/2020 03:48 PM TSH 1.80 10/28/2018 01:45 PM LDL 65 01/23/2024 11:05 AM LDL 81 11/30/2019 12:39 PM ALT 77 (H) 02/22/2024 03:42 PM ALT 100 (H) 03/27/2020 03:48 PM HGBA1C 4.8 01/23/2024 11:05 AM HGBA1C 5.0 06/26/2018 06:54 AM documented in this encounter Plan of Treatment Upcoming Encounters Date Type Department Care Team (Late st Contact Info) Description 06/08/2024 3:45 PM EDT Office Visit Gynecology/Obstetics [facility] [address] [place] [address] [facility]else[facility] Greene [facility]C [address] [facility] [place] [phone] Health Maintenance Due Date Last Done [...] Not on filedocumented as of this encounter Visit Diagnoses Diagnosis Substance induced mood disorder (HCC) Drug-induced mood disorder documented in this encounter Advance Directives * Full Code [...] and were consensually agreed upon. Care Teams Correction Officer Relationship Specialty Start Date End Date Aldo Dinh MD [address] [place] [phone] PCP - General Family Medicine 06/25/18 documented as of this encounter
--- OUTSIDE RECORDS SUMMARY | 2024-06-03 07:34 | External Medical Summary ---
Author Name Unknown Address Unknown Organization [id number]:[place] [place] [address] [facility] [address] Laboratory Report Ordering Provider Test Date Status DOMENICO ERNANDEZ 05/24/2024 12:25:08 Final Cutoff Concentrations:
Drug Level
Amphetamines 500 ng/mL
Benzodiazepines 100 ng/mL
Cannabinoids 50 ng/mL
Cocaine Metabolite 150 ng/mL
Fentanyl 1 ng/mL
Hydrocodone / Hydromorphone 300 ng/mL
Methadone Metabolite 100 ng/mL
Morphine / Codeine 300 ng/mL
Oxycodone / Oxymorphone 100 ng/mL

Screening results are presumptive and can only be used for medical purposes. Confirmatory testing is available upon request. Observation Date Value Abnormality Reference (Units ) Status Amphetamines, Urine screen 05/24/2024 12:25:08 Negative Negative Final Benzodiazepines, Urine screen 05/24/2024 12:25:08 Negative Negative Final Cannabinoids, Urine screen 05/24/2024 12:25:08 Negative Negative Final Cocaine Metabolite, Urine screen 05/24/2024 12:25:08 Negative Negative Final fentaNYL [Presence] in Urine by Screen method 05/24/2024 12:25:08 Negative Negative Final HYDROcodone [Presence] in Urine by Screen method 05/24/2024 12:25:08 Negative Negative Final 8-Uqdvgdqvsy-9,5-Dimeth yl-3,3-Diphenylpyrrolid ine (EDDP) [Presence] in Urine 05/24/2024 12:25:08 Negative Negative Final Opiates, Urine screen 05/24/2024 12:25:08 Negative Negative Final oxyCODONE [Presence] in Urine by Screen method 05/24/2024 12:25:08 Negative Negative Final Performing Location LABORATORY C - [address] [facility] [address]
--- OUTSIDE RECORDS SUMMARY | 2024-06-03 07:34 | External Medical Summary ---
Author Name Unknown Address Unknown Organization K01[place] [place] [address] [facility] [address] Laboratory Report Ordering Provider Test Date Status DOMENICO ERNANDEZ 05/24/2024 13:02:36 Final Observation Date Value Abnormality Reference (Units ) Status HIV 1+2 Ab+HIV1 p24 Ag [Presence] in Serum or Plasma by Immunoassay 05/24/2024 13:02:36 Negative Negative Final Negative HIV-1/2 antigen and antibody screening tset results usually indicate the absence of HIV-1 and HIV-2 infection. However, such negative results do not rule-out acute HIV infection. If acute HIV-1 infection is highly suspected, it is recommended that a specimen be submitted for detection of HIV-1 RNA. Performing Location [facility] [place] [address] [facility] [address]
--- OUTSIDE RECORDS SUMMARY | 2024-06-03 07:34 | External Medical Summary ---
Author Name Unknown Address Unknown Organization K01:[place] [facility] [place] [address] [facility] [address] Laboratory Report Ordering Provider Test Date Status DOMENICO ERNANDEZ 05/12/2024 15:25:30 Final Cutoff Concentrations:
Drug Level
Amphetamines 500 [...] Reference (Units ) Status Amphetamines, Urine screen 05/12/2024 15:25:30 Negative Negative Final Benzodiazepines, Urine screen 05/12/2024 15:25:30 Negative Negative Final Cannabinoids, Urine screen 05/12/2024 15:25:30 Negative Negative Final Cocaine Metabolite, Urine screen 05/12/2024 15:25:30 Negative Negative Final fentaNYL [Presence] in Urine by Screen method 05/12/2024 15:25:30 Negative Negative Final HYDROcodone [Presence] in Urine by Screen method 05/12/2024 15:25:30 Negative Negative Final 8-Obceturmiy-2,5-Dimeth yl-3,3-Diphenylpyrrolid ine (EDDP) [Presence] in Urine 05/12/2024 15:25:30 Negative Negative Final Opiates, Urine screen 05/12/2024 15:25:30 Negative Negative Final oxyCODONE [Presence] in Urine by Screen method 05/12/2024 15:25:30 Negative Negative Final Performing Location LABORATORY C - [address] [facility] [address]
--- OUTSIDE RECORDS SUMMARY | 2024-06-03 07:34 | External Medical Summary ---
Author Name Unknown Address Unknown Organization K01[place] [facility] [place] [address] [facility] [place] [address] Laboratory Report Ordering Provider Test Date Status DOMENICO ERNANDEZ 05/24/2024 13:02:36 Final Observation Date Value Abnormality Reference (Units ) Status BUN 05/24/2024 13:02:36 10 6-20 (mg/dL) Final Creatinine 05/24/2024 13:02:36 0.7 0.5-1.0 (mg/dL) Final Glomerular filtration rate/1.73 sq M.predicted [Volume Rate/Area] in Serum, Plasma or Blood by Creatinine-based formula (CKD-EPI) 05/24/2024 13:02:36 >90 >=60 (mL/min) Final eGFR is calculated based on the CKD-EPI 2020 equation. Sodium 05/24/2024 13:02:36 138 135-146 (m mol/L) Final Potassium 05/24/2024 13:02:36 4.2 3.5-5.1 (m mol/L) Final Cl 05/24/2024 13:02:36 103 98-107 (mm ol/L) Final CO2 05/24/2024 13:02:36 23 22-32 (mmo l/L) Final Anion gap 05/24/2024 13:02:36 12 7-15 (mmol /L) Final Glucose 05/24/2024 13:02:36 86 70-120 (mg /dL) Final Albumin 05/24/2024 13:02:36 4.8 3.8-5.0 (g /dL) Final AST (Aspartate aminotransferase) 05/24/2024 13:02:36 43 Above high normal 10-35 (U/L) Final Alk Phos 05/24/2024 13:02:36 42 35-130 (U/ L) Final Bilirubin, Total 05/24/2024 13:02:36 0.6 <=1 .2 (mg/dL) Final Calcium 05/24/2024 13:02:36 9.6 8.4-10.2 ( mg/dL) Final Protein 05/24/2024 13:02:36 7.1 6.0-8.3 (g /dL) Final ALT (Alanine aminotransferase) 05/24/2024 13:02:36 69 Above high normal 10-35 (U/L) Final Performing Location [place] [place] [address] [facility] [address]
--- OUTSIDE RECORDS SUMMARY | 2024-06-03 07:34 | External Medical Summary | Summary of Care ---
Author Name Unknown Organization [facility] Address [address] [place] [address] Phone [phone] Care Team Providers Care Wall Man Name Role Phone Aldo Anthony MD Primary Care P rovider Reason for Visit * Reason Onset Date Comments Order Request 02/18/2024 Quantiferon Gold for employment My G sent02/21 Encounter Details Date Type Department Care Team ([facility] st Contact Info) Description 02/18/2024 Telephone Family [address] [phone] Steph Logan MD [address] [place] [phone] Order Request (Quantiferon Gold for employ... Allergies No known active allergiesdocumented as of this encounter (statuses as of 05/20/2024) Medications Buprenorphine HCl-Naloxone HCl 8-2 MG Sublingual Tablet Sublingual (Suboxone) Place 1 Tablet under the tongue in the morning. 05/06/19 24 Active Naloxone HCl 4 MG/0.1ML Nasal Liquid (Narcan Nasal) Administer 0.1 mL into nostril as needed. 05/06/19 24 025 Discontinued(Re fill) Gabapentin 600 MG Oral Tablet (Neurontin)Ind ications:BRIDGET (generalized anxiety disorder) Take 1 Tablet by mouth in the morning and 1 Tablet at noon and 1 Tablet before bedtime. 90 Tablet 2 12/09/19 24 025 Discontinued QUEtiapine Fumarate 100 MG Oral Tablet (SEROquel)Ivonne cations:Substa nce induced mood disorder (HCC) Take 1-1.5 Tablets by mouth at bedtime. 45 Tablet 5 12/09/19 24 025 Discontinued(Re fill) documented as of this encounter (statuses as of 05/20/2024) Active Problems Problem Noted Date Diagnosed Date BRIDGET (generalized anxiety disorder) 05/12/2022 Moderate episode of recurrent major depressive d isorder 05/12/2022 Opioid use disorder, severe, dependence 04/09/19 Chronic hepatitis C without hepatic coma 019 documented as of this encounter (statuses as of 05/20/2024) Resolved Problems Problem Noted Date Diagnosed Date [...] as of this encounter (statuses as of 05/20/2024) Immunizations Name Administration Dates Next Due DTaP [...] encounter Miscellaneous Notes * Telephone Encounter - Elva Rose MED ASSIST - 02/22/2024 10:06 AM EST My G sent. * Telephone Encounter - Elva Rose MED ASSIST - 02/22/2024 10:02 AM EST Order placed. Sent My G message to pt. * Telephone Encounter - Keysha Boswell CRNP - 02/22/2024 7:41 AM EST Inboxologist Covering Provider All replies or additional communication must be routed to the PCP Ordered quantiferon. * Telephone Encounter - Joann Richardson OSA - 02/18/2024 2:21 PM EST An order was requested for this patient. Name of Requesting Provider: patient Order Requested: Quantiferon TB Gold Diagnosis/Reason for Request: New employment If order request is for Mammogram: Is the patient having any breast symptoms? N/A Is there a chance of ? N/A Has the patient had any breast problems in the past? NA What location AND department does the patient wish to have their order completed at? [facility] Fax Number, if applicable: na If the caller is not a current patient, please advise the patient to call their current PCP to havethe order's prior to being seen in our office. The patient was informed that our providers would not order anything (medication, labs, etc.) prior to being seen. documented in this encounter Plan of Treatment Upcoming Encounters Date Type Department Care Team (Late st Contact Info) Description 06/08/2024 3:45 PM EDT Office Visit Gynecology/Obstetics [place] [address] [place] [phone] Kelsea Greene PA-C [address] [place] [phone] Health Maintenance Due Date Last Done [...] Not on filedocumented as of this encounter Results * QUANTIFERON TB GOLD PLUS (02/25/2024 10:38 AM EST) [facility] Quantiferon-TB Plus, 1T NEGATIVE NEGATIVE 02/27/2024 11:49 PM EST [facility] Comment: Negative test result. M. tuberculosis complex infection unlikely. NIL 0.06 IU/mL 02/27/2024 11:49 PM EST [facility] [place]ANT[place] Mitogen-NIL 7.73 IU/mL 02/27/2024 11:49 PM EST [facility] [place] TB1-NIL 0.00 IU/mL 02/27/2024 11:49 PM EST [facility] [place] TB2-NIL 0.02 IU/mL 02/27/2024 11:49 PM EST [facility]ANJoin The Wellness Team[facility] Comment: The Nil tube value reflects the background [...] T-lymphocytes. For additional information, please refer to http://education.[facility].com/faq/NWT034 (This link is being provided for information/ educational purposes only.) Test Performed at: [facility] [address] [place] [address] Zaki Joseph M.D., Ph.D.,Director of Laboratories Blood Venous blood specimen / Unknown Venipuncture / Unknown 02/25/2024 10:38 AM EST 02/25/2024 10:39 AM EST us Steph Logan MD LAB BLOOD ORDERABLE S Final Result [facility] [place] [address] [place] [address] documented in this encounter Visit Diagnoses Diagnosis Tuberculosis screening- Primary Screening examination for pulmonary tuberculosis documented in this encounter Advance Directives * [...] and were consensually agreed upon. Care Teams Wall Man Relationship Specialty Start Date End Date Aldo Anthony MD [address] [place] [phone] PCP - General Family Medicine 06/25/18 documented as of this encounter
--- OUTSIDE RECORDS SUMMARY | 2024-06-03 07:34 | External Medical Summary | Summary of Care ---
Author Name Unknown Organization [facility] Address [address] [place] [address] Phone [phone] Care Team Providers Care Career Development Engineer Name Role Phone Aldo Anthony MD Primary Care P rovider Reason for Visit * Reason Comments Outpatient Testing Encounter Details Date Type Department Care Team (Late st Contact Info) Description 02/25/2024 10:30 AM EST Laboratory Laboratory, [id number] [place] [address] G[facility], Lab [address] [place] [address] Tuberculosis screening Allergies No known active allergiesdocumented as of this encounter (statuses as of 02/25/2024) Medications Buprenorphine HCl-Naloxone HCl 8-2 MG Sublingual [...] as of this encounter (statuses as of 02/25/2024) Active Problems Problem Noted Date Diagnosed Date [...] as of this encounter (statuses as of 02/25/2024) Resolved Problems Problem Noted Date Diagnosed Date [...] as of this encounter (statuses as of 02/25/2024) Immunizations Name Administration Dates Next Due DTaP Dipth/Tet/Acell Pertussis (Infanrix), Peds 06/02/1996,04/09/1993,09/04/1992 HIB PRP-OMP, 3 dose (Pedvax) 04/09/1993,09/04/18 93 HPV Vaccine, 4-Valent 12/29/2006,08/21/2006,04/05/2006 Hepatitis B, 0-19 yrs 01/05/1997,09/02/1996,05/15 MMR - [...] of Assessment Author No 06/11/2019 11:41 PM EDT Aakash Dodge RN documented as of this encounter Mental [...] 06/08/2024 3:45 PM EDT Office Visit Gynecology/Obstetics [place] [address] [place] [phone] Kelsea Greene PA-C [address] [place] [phone] Pending Results Name Type Priority Associated Diagnoses Date /Time QUANTIFERON TB GOLD PLUS Lab Routine Tuberculosis screening 02/25/2024 10:38 AM EST Health Maintenance Due Date Last Done Comments Pneumococcal Vaccine: Pediatrics (0 to 5 Years) and At-Risk Patients (6 to 64 Years) (1 of 2 - PCV) 10/30/1997 DTap/Tdap Vaccines (7 - Td or Tdap) 07/10/2019 07/09/2009, 11/06/2003, 06/02/1996, Additional history exists HPV/Co-Test 10/30/2021 Cervical Cancer Screening 11/05/2021 Pap Smear 11/05/2021 11/05/2018 COVID-19 Vaccine ( - season) 2023 Influenza Vaccine (FLU shot) (#1) 2023 04/30/2011, 12/24/2009 Depression Monitoring 12/08/2024 12/09/2023 Hepatitis B Vaccine Completed 01/05/1997, 09/02/1996, 06/02/1996 MENINGOCOCCAL (MENACTRA/MENVEO) Aged Out 06/16/2006, 06/16/2006 No longer eligibl e based on patient's age to complete this topic HPV (Gardasil) Vaccine Completed 7, 08/21/2006, 06/16/2006 documented as of this encounter Medical Devices Not on filedocumented as of this encounter Visit Diagnoses Diagnosis Tuberculosis screening Screening examination for pulmonary tuberculosis documented in [...] and were consensually agreed upon. Care Teams Career Development Engineer Relationship Specialty Start Date End Date Aldo Anthony MD [address] [place] [phone] PCP - General Family Medicine 06/25/18 documented as of this encounter
--- OUTSIDE RECORDS SUMMARY | 2024-06-03 07:34 | External Medical Summary | Summary of Care ---
Author Name Unknown Organization [facility] Address [address] [place] [address] Phone [phone] Care Team Providers Care Home Health Aid Name Role Phone Aldo Dinh MD Primary Care P rovider Reason for Visit * Reason Comments eRx-Medication Refill Encounter Details Date Type Department Care Team ([facility] Contact Info) Description 04/08/2024 Refill Family Practice [address] [phone] Aldo Dinh MD [address] [place] [phone] BRIDGET (generalized anxiety disorder) Allergies No known active allergiesdocumented as of this encounter (statuses as of 04/08/2024) Medications Buprenorphine HCl-Naloxone HCl 8-2 MG Sublingual Tablet Sublingual (Suboxone) Place 1 Tablet under the tongue in the morning. 05/06/19 24 Active Naloxone HCl 4 MG/0.1ML Nasal Liquid (Narcan Nasal) Administer 0.1 mL into nostril as needed. 05/06/19 24 Active QUEtiapine Fumarate 100 MG Oral Tablet (SEROquel)Ivonne cations:Substa nce induced mood disorder (HCC) Take 1-1.5 Tablets by mouth at bedtime. 45 Tablet 5 12/09/19 24 Active Gabapentin 600 MG Oral Tablet (Neurontin)Ind ications:BRIDGET (generalized anxiety disorder) TAKE 1 TABLET BY MOUTH IN THE MORNING AT AT NOON AND BEFORE BEDTIME 90 Tablet 2 04/08/19 25 Active Gabapentin 600 MG Oral Tablet (Neurontin)Ind ications:BRIDGET (generalized anxiety disorder) Take 1 Tablet by mouth in the morning and 1 Tablet at noon and 1 Tablet before bedtime. 90 Tablet 2 12/09/19 24 025 Discontinued documented as of this encounter (statuses as of 04/08/2024) Active Problems Problem Noted Date Diagnosed Date [...] as of this encounter (statuses as of 04/08/2024) Resolved Problems Problem Noted Date Diagnosed Date [...] as of this encounter (statuses as of 04/08/2024) Immunizations Name Administration Dates Next Due DTaP [...] s 05/06/2023 Does the household have a [facility] source of income? (Household - for ages [...] Telephone Encounter - Aldo Dinh MD - 04/08/2024 11:20 AM ESTSigned Prescriptions: Disp Refills Gabapentin 600 MG Oral Tablet (Neurontin) 90 Tab*2 Sig: TAKE 1 TABLET BY MOUTH IN THE MORNING AT AT NOON AND BEFORE BEDTIME Authorizing Provider: ALDO DINH * Telephone Encounter - Jeffery Mead RP - 04/08/2024 10:29 AM EST Pending Prescriptions: Disp Refills Gabapentin 600 MG Oral Tablet [Pharmacy Me*90 Tab*2 Sig: TAKE 1 TABLET BY MOUTH IN THE MORNING AT AT NOON AND BEFORE BEDTIME * Telephone Encounter - Jeffery Mead RPh - 04/08/2024 10:28 AM EST Pending Prescriptions: Disp Refills Gabapentin 600 MG Oral Tablet [Pharmacy Me*90 Tab*2 Sig: TAKE 1 TABLET BY MOUTH IN THE MORNING AT AT NOON AND BEFORE BEDTIME 06/30/2022 (in office), 12/09/2023 (telemedicine) Visit date not found If no future appointments scheduled, and last appointment is greater than a year ago, please schedule patient for a follow-up appointment Last date the medication was ordered: 12/09/23 Pharmacy: [id number] Is this request for a controlled substance?No Patient Phone Numbers Labs: Lab Results Component [...] EDT Office Visit Gynecology/Obstetics Sherif Baptiste [address] [facility] [place] [address] [phone] Kelsea Greene PA-C [address] [facility] [place] [phone] Health Maintenance Due Date Last Done [...] as of this encounter Visit Diagnoses Diagnosis BRIDGET (generalized anxiety disorder) Generalized anxiety disorder documented in this encounter Advance Directives [...] and were consensually agreed upon. Care Teams Home Health Aid Relationship Specialty Start Date End Date Aldo Dinh MD [address] [place] [phone] PCP - General Family Medicine 06/25/18 documented as of this encounter
--- OUTSIDE RECORDS SUMMARY | 2024-06-03 07:35 | External Medical Summary | Summary of Care ---
Author Name Unknown Organization [facility] Address [address] [place] [address] Phone [phone] Care Team Providers Care Top Screw Name Role Phone Aldo Anthony MD Primary Care P rovider Reason for Visit * Reason Comments Outpatient Testing Encounter Details Date Type Department Care Team (Late st Contact Info) Description 01/23/2024 11:10 AM EST Laboratory Laboratory, [facility] [address] [place] [address] Gj, Lab [address] [place] [address] BRIDGET (generalized anxiety disorder); Encounter for long-term current use of medication; Opioid dependence (HCC) Allergies No known active allergiesdocumented as of this encounter (statuses as of 01/23/2024) Medications Buprenorphine HCl-Naloxone HCl 8-2 MG Sublingual [...] as of this encounter (statuses as of 01/23/2024) Active Problems Problem Noted Date Diagnosed Date History of opioid abuse 07/04/2022 History of substance use disorder 06/30/2022 BRIDGET (generalized anxiety disorder) 05/12/2022 Moderate episode of recurrent major depressive d isorder 05/12/2022 Mood disorder 05/12/2022 Opioid use disorder, severe, dependence 04/09/19 22 Amphetamine abuse 08/22/2018 Chronic hepatitis C without hepatic coma 019 Substance induced mood disorder documented as of this encounter (statuses as of 01/23/2024) Resolved Problems Problem Noted Date Diagnosed Date [...] as of this encounter (statuses as of 01/23/2024) Immunizations Name Administration Dates Next Due DTaP [...] 06/08/2024 3:45 PM EDT Office Visit Gynecology/Obstetics [place] [address] [place] [address] Kelsea Greene PA-C [address] [place] [address] Pending Results Name Type Priority Associated Diagnoses Date /Time LIPID PANEL WITH DIRECT LDL IF TG IS HIGH Lab Routine Encounter for long-term current use of medication 01/23/2024 11:05 AM EST HEMOGLOBIN A1C Lab Routine Encounter for long-term current use of medication 01/23/2024 11:05 AM EST TOXICOLOGY, URINESCREEN W/ CONFIRMATION Lab Routine Opioid dependence (HCC) 01/23/2024 11:34 AM EST BUPRENORPHINE, URINE SCREEN W/ CONFIRMATION Lab Routine Opioid dependence (HCC) 01/23/2024 11:34 AM EST Health Maintenance Due Date Last [...] Not on filedocumented as of this encounter Procedures Procedure Name Priority Date/Time Associated Diagnosis Comments DIFFERENTIAL, AUTOMATED Routine 01/23/2024 11:05 AM EST BRIDGET (generalized anxiety disorder) COMPREHENSIVE METABOLIC PANEL Routine 01/23/2024 11:05 AM EST BRIDGET (generalized anxiety disorder) CBC Routine 01/23/2024 11:05 AM EST BRIDGET (generalized anxiety disorder) CBC Routine 01/23/2024 11:05 AM EST BRIDGET (generalized anxiety disorder) documented in this encounter Results * DIFFERENTIAL, AUTOMATED (01/23/2024 11:05 AM EST) WBC 5.11 4.00 - 10.80 K/uL 01/23/2024 11:29 AM EST LAB[facility]AT[facility] Neutrophils % 49.8 40.0 - 75.0 % 01/23/2024 11:29 AM EST [facility] Lymphocytes % 38.9 18.0 - 42.0 % 01/23/2024 11:29 AM EST [facility] Monocytes % 8.4 1.0 - 11.0 % 01/23/2024 11:29 AM EST [facility] Eosinophils % 2.7 0.0 - 6.0 % 01/23/2024 11:29 AM EST [facility] Basophils % 0.2 0.0 - 2.0 % 01/23/2024 11:29 AM EST [facility] Absolute Neutrophils 2.54 1.80 - 7.70 K/uL 01/23/2024 11:29 AM EST [facility] Absolute Lymphocytes 1.99 1.00 - 4.80 K/ul 01/23/2024 11:29 AM EST [facility] Absolute Monocytes 0.43 0.00 - 1.10 K/uL 01/23/2024 11:29 AM EST LAB[facility]ATORY [facility] Absolute Eosinophils 0.14 0.00 - 0.70 K/uL 01/23/2024 11:29 AM EST LAB[facility]ATORY [facility] Absolute Basophils 0.01 0.00 - 0.20 K/uL 01/23/2024 11:29 AM EST [facility]ATORY [facility] Blood Venous blood specimen / Unknown Venipuncture / Unknown 01/23/2024 11:05 AM EST 01/23/2024 11:22 AM EST us Aldo Quiroga MD LAB BLOOD ORDER KELSEY Final Result LABORATORY [address] [address] * (ABNORMAL) CBC (01/23/2024 11:05 AM EST) WBC 5.11 4.00 - 10.80 K/uL 01/23/2024 11:29 AM EST LAB[facility]ATORY [facility] RBC 5.00 3.85 - 5.15 M/uL 01/23/2024 11:29 AM EST LAB[facility]ATORY [facility] HGB 16.4(H) 12.0 - 15.3 g/dL 01/23/2024 11:29 AM EST [facility]ORY [facility] HCT 46.9(H) 36.0 - 45.2 % 01/23/2024 11:29 AM EST LAB[facility]ATORY [facility] MCV 93.8 81.5 - 97.5 fL 01/23/2024 11:29 AM EST [facility]ORY [facility] MCH 32.8 27.0 - 34.0 pg 01/23/2024 11:29 AM EST LAB[facility]ORY [facility] MCHC 35.0 32.0 - 36.0 g/dL 01/23/2024 11:29 AM EST LAB[facility]ORY [facility] RDW 11.6 11.5 - 15.5 % 01/23/2024 11:29 AM EST LAB[facility]ATORY [facility] PLT 179 140 - 400 K/uL 01/23/2024 11:29 AM EST LAB[facility]ATORY [facility] MPV 9.7 6.6 - 11.1 fL 01/23/2024 11:29 AM EST [facility] Blood Venous blood specimen / Unknown Venipuncture / Unknown 01/23/2024 11:05 AM EST 01/23/2024 11:22 AM EST Aldo Quiroga MD LAB BLOOD ORDER KELSEY Final Result LAB[facility]AT[facility] [address] [place] [address] * (ABNORMAL) COMPREHENSIVE METABOLIC PANEL (01/23/2024 11:05 AM EST) BUN 9 6 - 20 mg/dL 01/23/2024 11:46 AM EST [facility] CREATININE 0.8 0.5 - 1.0 mg/dL 01/23/2024 11:46 AM EST [facility] EGFR >90 >=60 mL/min 01/23/2024 11:46 AM EST [facility] Comment:eGFR is calculated b ased on the CKD-EPI 2020 equation. SODIUM 136 135 - 146 mmol/L 01/23/2024 11:46 AM EST [facility] POTASSIUM 4.2 3.5 - 5.1 mmol/L 01/23/2024 11:46 AM EST [facility] CHLORIDE 100 98 - 107 mmol/L 01/23/2024 11:46 AM EST [facility] CO2 27 22 - 32 mmol/L 01/23/2024 11:46 AM EST [facility] ANION GAP 9 7 - 15 mmol/L 01/23/2024 11:46 AM EST [facility] GLUCOSE 77 70 - 120 mg/dL 01/23/2024 11:46 AM EST [facility] Albumin 4.7 3.8 - 5.0 g/dL 01/23/2024 11:46 AM EST [facility] AST 65(H) 10 - 35 U/L 01/23/2024 11:46 AM EST [facility] Alkaline Phosphatase 44 35 - 130 U/L 01/23/2024 11:46 AM EST [facility] Bilirubin, Total 0.8 <=1.2 mg/dL 01/23/2024 11:46 AM EST [facility] CALCIUM 10.1 8.4 - 10.2 mg/dL 01/23/2024 11:46 AM EST [facility] Protein 7.9 6.0 - 8.3 g/dL 01/23/2024 11:46 AM EST LAB[facility]ATORY [facility] ALT 99(H) 10 - 35 U/L 01/23/2024 11:46 AM EST LAB[facility]ATORY [facility] Blood Venous blood specimen / Unknown Venipuncture / Unknown 01/23/2024 11:05 AM EST 01/23/2024 11:22 AM EST Aldo Quiroga MD LAB BLOOD ORDER KELSEY Final Result LAB[facility]ATORY [facility] [address] [place] [address] documented in this encounter Visit Diagnoses Diagnosis BRIDGET (generalized anxiety disorder) Generalized anxiety disorder Encounter for long-term current use of medication Opioid dependence (HCC) Opioid type dependence, unspecified documented in this encounter Advance Directives * [...] and were consensually agreed upon. Care Teams Top Screw Relationship Specialty Start Date End Date Aldo Anthony MD [address] [place] [address] [phone] PCP - General Family Medicine 06/25/18 documented as of this encounter
--- OUTSIDE RECORDS SUMMARY | 2024-06-03 07:35 | External Medical Summary | Summary of Care ---
Author Name Unknown Organization [facility] Address [address] [place] [address] Phone [phone] Care Team Providers Care Geriatric Nursing Assistant Name Role Phone Aldo Anthony MD Primary Care P rovider Reason for Visit * Reason Onset Date Comments No Show 12/08/2023 [facility] No Show Auto mation Encounter Details Date Type Department Care Team ([facility] st Contact Info) Description 12/08/2023 Telephone Family [address] [address] Aldo Anthony MD [address] [place] [address] No Show ([place] No Show Automation) Allergies No known active allergiesdocumented as of this encounter (statuses as of 12/08/2023) Medications Medication Sig Dispensed Refills Start Date End Date Status Buprenorphine HCl-Naloxone HCl 8-2 MG Sublingual Tablet Sublingual (Suboxone) Place 1 Tablet under the tongue in the morning. 05/06/2023 Active Naloxone HCl 4 MG/0.1ML Nasal Liquid (Narcan Nasal) Administer 0.1 mL into nostril as needed. 05/06/2023 Active QUEtiapine Fumarate 100 MG Oral Tablet (SEROquel)Indicatio ns:Substance induced mood disorder (HCC) TAKE 1 TABLET BY MOUTH EVERYDAY AT BEDTIME 30 Tablet 5 10/23/2023 Active Gabapentin 600 MG Oral Tablet (Neurontin)Indicati ons:BRIDGET (generalized anxiety disorder) TAKE 1 TABLET BY MOUTH IN THE MORNING AT AT NOON AND BEFORE BEDTIME 90 Tablet 12/07/2023 Active documented as of this encounter (statuses as of 12/08/2023) Active Problems Problem Noted Date Diagnosed Date History of opioid abuse 07/04/2022 History of substance use disorder 06/30/2022 BRIDGET (generalized anxiety disorder) 05/12/2022 Moderate episode of recurrent major depressive d isorder 05/12/2022 Mood disorder 05/12/2022 Opioid use disorder, severe, dependence 04/09/19 Amphetamine abuse 08/22/2018 Chronic hepatitis C without hepatic coma 019 ADVANCE DIRECTIVE INFORMATION 08/12/2006 Overview: Not applicable (under age of 18) Substance induced mood disorder documented as of this encounter (statuses as of 12/08/2023) Resolved Problems Problem Noted Date Diagnosed Date [...] therapy 05/12/2016 04/09/2021 Major depressive disorder 07/09/2009 Overview: ICD-10 update of inactive term Adolescent Acne 11/17/2007 11/08/2019 documented as of this encounter (statuses as of 12/08/2023) Immunizations Name Administration Dates Next Due DTaP Dipth/Tet/Acell Pertussis (Infanrix), Peds 06/02/1996,04/09/1993,09/04/1992 HIB PRP-OMP, 3 dose (Pedvax) 04/09/1993,09/04/18 93 HPV Vaccine, 4-Valent 12/29/2006,08/21/2006,0405/2006 Hepatitis B, 0-19 yrs 01/05/1997,09/02/1996,05/15 MMR - Measles/Mumps/Rubella Vaccine 06/02/1996,0 04/09/1993 Meningococcal Conjugate Vacc ine (Menactra/Menveo) 06/16/2006 Meningococcal MCV4P Conjugat e Vaccine (Menactra) 06/16/2006 OPV - Polio Virus Vaccine (Oral) 06/02/1996,03/17 PPD 07/01/2021,06/22/2021 Seasonal Influenza, Trivalen t, (IIV3), with Preserv, (Fluzone) 04/30/2011,12/24/2009 TDAP, Age 7 and older, IM (Adacel) 07/09/2009 Varicella Vaccine (Chicken Pox) 12/01/2007 documented as of this encounter Social History Tobacco Use Types Packs/Day Years Used Date Smoking Tobacco: Every Day Cigarettes 1 5 Smokeless Tobacco: Never Alcohol Use Standard Drinks/Week Comments No 0 (1 standard drink = 0.6 oz pur e alcohol) PHQ-2 Answer Date Recorded PHQ Adult Total Score 23 07/04/2022 Hunger Vital Sign Answer Date Recorded Within [...] ages 0-17 years) Not on file 05/06/2023 Sex and Gender Information Value Date Recorded Sex Assigned at Female 05/06/2023 3:50 PM EST Gender Identity Female 05/06/2023 3:50 PM EST Sexual Orientation Straight 05/06/2023 3: 50 PM EST Job Start Date Occupation Industry Not on file Not on file Not on file documented as of this encounter Functional Status Functional Status Response Date of Assess ment Are you deaf or do you have serious difficulty h earing? No 06/11/2019 Are you blind or do you have serious difficulty seeing, even when wearing glasses? No 06/11/2019 Do you have serious difficul ty walking or climbing stairs? (5 years old or older) No 03/27/2020 Do you have difficulty dress ing or bathing? (5 years old or older) No 06/11/2019 Because of a physical, menta l, or emotional condition, do you have difficulty doing errands alone such as visiting a doctor s office or shopping? (15 years old or older) No 06/11/19 Cognitive Status Response Date of Assessm ent Because of a physical, menta l, or emotional condition, do you have serious difficulty concentrating, remembering, or making decisions? (5 years old or older) No 06/11/2019 documented as of this encounter Miscellaneous Notes * Telephone Encounter - Brie, No Show - 12/08/2023 7:12 PM EDT Dear Maria Telles, Looks like you missed an appointment with ALDO OSWALD on 12/03/2023 at 06:30 PM. If you haven't already rescheduled, you have a couple of options: Reschedule in [employer]/scheduling Call us at [phone] Can't make a future appointment? Cancel and let someone else have your spot! It's easy to do via [employer] or by calling us. Thanks for trusting [facility] with your care. We hope to see you back in our office soon. Sincerely, ALDO OSWALD documented in this encounter Plan of Treatment Upcoming Encounters Date Type Department Care Team ([facility] Contact Info) Description 12/09/2023 5:10 PM EDT Telemedicine Family [address] [phone] Aldo Anthony MD [address] [place] [address] Health Maintenance Due Date Last Done Comments Pneumococcal Vaccine: Pediatrics (0 to 5 Years) and At-Risk Patients (6 to 64 Years) (1 of 2 - PCV) 10/30/1997 DTap/Tdap Vaccines (7 - Td or Tdap) 07/10/2019 07/09/2009, 11/06/2003, 06/02/1996, Additional history exists HPV/Co-Test 10/30/2021 Cervical Cancer Screening 11/05/2021 Pap Smear 11/05/2021 11/05/2018 Depression Monitoring 07/05/2023 07/04/2022 COVID-19 Vaccine ( season) 2023 Influenza Vaccine (FLU shot) (#1) 2023 04/30/2011, 12/24/2009 Hepatitis B Vaccine Completed 01/05/1997, 09/02/1996, 06/02/1996 [...] and were consensually agreed upon. Care Teams Geriatric Nursing Assistant Relationship Specialty Start Date End Date Aldo Anthony MD [address] [place] [phone] PCP - General Family Medicine 06/25/18 documented as of this encounter
--- OUTSIDE RECORDS SUMMARY | 2024-06-03 07:35 | External Medical Summary ---
Author Name Unknown Address Unknown Organization K1G:LABORATORY [facility] - [address] [place] [phone] Laboratory Report Ordering Provider Test Date Status PETE ADKINS 02/22/2024 15:42:58 Final hCG can serve as a screening assay for . However, early may not give a positive hCG test result. In addition, some non- women may have a hCG result slightly higher than the reference limit. Careful interpretation of the hCG with clinical history is required to determine whether the patient may be . Observation Date Value Abnormality Reference (Units ) Status Choriogonadotropin.intact +Beta subunit [Units/volume] in Serum or Plasma 02/22/2024 15:42:58 <0.3 <=1.0 (mIU/mL) Final Performing Location LABORATORY [facility] - [facility] [address]
--- OUTSIDE RECORDS SUMMARY | 2024-06-03 07:35 | External Medical Summary | Summary of Care ---
Author Name Unknown Organization [facility] Address [address] [place] [address] Phone [phone] Care Team Providers Care Linter Saw Sharpener Name Role Phone Aldo Dinh MD Primary Care P rovider Reason for Visit * Reason Comments eRx-Medication Refill Encounter Details Date Type Department Care Team ([facility] Contact Info) Description 12/05/2023 Refill Family Practice [address] [phone] Aldo Dinh MD [address] [place] [address] BRIDGET (generalized anxiety disorder) Allergies No known active allergiesdocumented as of this encounter (statuses as of 12/07/2023) Medications Medication Sig Dispensed Refills Start Date End Date Status Buprenorphine HCl-Naloxone HCl 8-2 MG Sublingual Tablet Sublingual (Suboxone) Place 1 Tablet under the tongue in the morning. 05/06/2023 Active Naloxone HCl 4 MG/0.1ML Nasal Liquid (Narcan Nasal) Administer 0.1 mL into nostril as needed. 05/06/2023 Active QUEtiapine Fumarate 100 MG Oral Tablet (SEROquel)Indica tions:Substance induced mood disorder (HCC) TAKE 1 TABLET BY MOUTH EVERYDAY AT BEDTIME 30 Tablet 5 10/23/2023 Active Gabapentin 600 MG Oral Tablet (Neurontin)Indic ations:BRIDGET (generalized anxiety disorder) TAKE 1 TABLET BY MOUTH IN THE MORNING AT AT NOON AND BEFORE BEDTIME 90 Tablet 12/07/2023 Active Gabapentin 600 MG Oral Tablet (Neurontin)Indic ations:BRIDGET (generalized anxiety disorder) Take 1 Tablet by mouth in the morning and 1 Tablet at noon and 1 Tablet before bedtime. 90 Tablet 10/21/2023 4 Discontinued documented as of this encounter (statuses as of 12/07/2023) Active Problems Problem Noted Date Diagnosed Date [...] as of this encounter (statuses as of 12/07/2023) Resolved Problems Problem Noted Date Diagnosed Date [...] as of this encounter (statuses as of 12/07/2023) Immunizations Name Administration Dates Next Due DTaP Dipth/Tet/Acell Pertussis (Infanrix), Peds 06/02/1996,04/09/1993,09/04/1992 HIB PRP-OMP, 3 dose (Pedvax) 04/09/1993,09/04/18 93 HPV Vaccine, 4-Valent 12/29/2006,08/21/2006,04/0 05/2006 Hepatitis B, 0-19 yrs 01/05/1997,09/02/1996,05/15 MMR - [...] Telephone Encounter - Aldo Dinh MD - 12/07/2023 9:19 AM EDTSigned Prescriptions: Disp Refills Gabapentin 600 MG Oral Tablet (Neurontin) 90 Tab*0 Sig: TAKE 1 TABLET BY MOUTH IN THE MORNING AT AT NOON AND BEFORE BEDTIME Authorizing Provider: ALDO DINH * Telephone Encounter - Camilla Bryan LPN - 12/07/2023 7:55 AM EDTPending Prescriptions: Disp Refills Gabapentin 600 MG Oral Tablet [Pharmacy Me*90 Tab*0 Sig: TAKE 1 TABLET BY MOUTH IN THE MORNING AT AT NOON AND BEFORE BEDTIME * Telephone Encounter - Jabari Baird - 12/05/2023 1:12 PM EDTPending Prescriptions: Disp Refills Gabapentin 600 MG Oral Tablet [Pharmacy Me*90 Tab*0 Sig: TAKE 1TABLET BY MOUTH IN THE MORNING AT AT NOON AND BEFORE BEDTIME documented in this encounter Plan of Treatment Upcoming Encounters Date Type Department Care Team ([facility] st Contact Info) Description 12/09/2023 5:10 PM EDT Telemedicine Family Practice [address] [phone] Aldo Dinh MD [address] [place] [phone] Health Maintenance Due Date Last Done Comments Pneumococcal Vaccine: Pediatrics (0 to 5 Years) and At-Risk Patients (6 to 64 Years) (1 of 2 - PCV) 10/30/1997 DTap/Tdap Vaccines (7 - Td or Tdap) 07/10/2019 07/09/2009, 11/06/2003, 06/02/1996, Additional history exists HPV/Co-Test 10/30/2021 Cervical Cancer Screening 11/05/2021 Pap Smear 11/05/2021 11/05/2018 Depression Monitoring 07/05/2023 07/04/2022 COVID-19 Vaccine ( - season) 2023 Influenza [...] and were consensually agreed upon. Care Teams Linter Saw Sharpener Relationship Specialty Start Date End Date Aldo Dinh MD [address] [place] [address] PCP - General Family Medicine 06/25/18 documented as of this encounter
--- OUTSIDE RECORDS SUMMARY | 2024-06-03 07:35 | External Medical Summary ---
Author Name Unknown Address Unknown Organization K1G:LABORATORY [facility] - [address] [place] [phone] Laboratory Report Ordering Provider Test Date Status JAMEY CARRIZALES 01/23/2024 11:05:31 Final Observation Date Value Abnormality Reference (Units ) Status WBC, Total 01/23/2024 11:05:31 5.11 4.00-10.8 0 (K/uL) Final RBC 01/23/2024 11:05:31 5.00 3.85-5.15 (M/uL) Final Hemoglobin 01/23/2024 11:05:31 16.4 Above high normal 1 2.0-15.3 (g/dL) Final HCT 01/23/2024 11:05:31 46.9 Above high normal 36 .0-45.2 (%) Final MCV 01/23/2024 11:05:31 93.8 81.5-97.5 (fL) Final MCH 01/23/2024 11:05:31 32.8 27.0-34.0 (pg) Final MCHC 01/23/2024 11:05:31 35.0 32.0-36.0 (g/dL) Final RDW 01/23/2024 11:05:31 11.6 11.5-15.5 (%) Final Platelets 01/23/2024 11:05:31 179 140-400 (K /uL) Final MPV 01/23/2024 11:05:31 9.7 6.6-11.1 ( fL) Final Performing Location LABORATORY [facility] - [address] [facility] [address]
--- OUTSIDE RECORDS SUMMARY | 2024-06-03 07:35 | External Medical Summary | Summary of Care ---
Author Name Unknown Organization [facility] Address [address] [place] [address] Phone [phone] Care Team Providers Care Welding Rod Coater Name Role Phone Aldo Anthony MD Primary Care P rovider Encounter Details Date Type Department Care Team (Late st Contact Info) Description 01/21/2024 Orders Only LABORATORY [facility] [address] [place] [address] Requisition, External Lab [address] [place] [address] Opioid dependence (HCC)* Allergies No known active allergiesdocumented as of this encounter (statuses as of 01/21/2024) Medications Medication Sig Dispensed Refills Start Date End Date Status Buprenorphine HCl-Naloxone HCl 8-2 MG Sublingual Tablet Sublingual (Suboxone) Place 1 Tablet under the tongue in the morning. 05/06/2023 Active Naloxone HCl 4 MG/0.1ML Nasal Liquid (Narcan Nasal) Administer 0.1 mL into nostril as needed. 05/06/2023 Active Gabapentin 600 MG Oral Tablet (Neurontin)Indicati ons:BRIDGET (generalized anxiety disorder) Take 1 Tablet by mouth in the morning and 1 Tablet at noon and 1 Tablet before bedtime. 90 Tablet 2 12/09/2023 Active QUEtiapine Fumarate 100 MG Oral Tablet (SEROquel)Indicatio ns:Substance induced mood disorder (HCC) Take 1-1.5 Tablets by mouth at bedtime. 45 Tablet 5 12/09/2023 Active documented as of this encounter (statuses as of 01/21/2024) Active Problems Problem Noted Date Diagnosed Date History of opioid abuse 07/04/2022 History of substance use disorder 06/30/2022 BRIDGET (generalized anxiety disorder) 05/12/2022 Moderate episode of recurrent major depressive d isorder 05/12/2022 Mood disorder 05/12/2022 Opioid use disorder, severe, dependence 04/09/19 Amphetamine abuse 08/22/2018 Chronic hepatitis C without hepatic coma 019 Substance induced mood disorder documented as of this encounter (statuses as of 01/21/2024) Resolved Problems Problem Noted Date Diagnosed Date [...] 11/17/2007 11/08/2019 ADVANCE DIRECTIVE INFORMATION 08/12/2006 01/18/2024 Overview: Not applicable (under age of 18) documented as of this encounter (statuses as of 01/21/2024) Immunizations Name Administration Dates Next Due DTaP [...] 18 years and over) Not on file 4 Are you (or your family) mary eless [...] (15 years old or older) No 06/11/19 20 Cognitive Status Response Date of Assessm ent Because of a physical, menta l, or emotional condition, do you have serious difficulty concentrating, remembering, or making decisions? (5 years old or older) No 06/11/2019 documented as of this encounter Plan of Treatment Upcoming Encounters Date Type Department Care Team ([facility] st Contact Info) Description 06/08/2024 3:45 PM EDT Office Visit Gynecology/Obstetics Sherif Baptiste [address] [place] [address] [place] Moon [address] Kelsea Greene PA-C [address] [place] [phone] Scheduled Orders Name Type Priority Associated Diagnoses Orde r Schedule TOXICOLOGY, URINESCREEN W/ CONFIRMATION Lab Routine Opioid dependence (HCC) Expected: 01/21/2024, Expires: 01/20/2025 FENTANYL, URINE SCREEN W/ CONFIRMATION Lab Routine Opioid dependence (HCC) Expected: 01/21/2024, Expires: 01/20/2025 BUPRENORPHINE, URINE SCREEN W/ CONFIRMATION Lab Routine Opioid dependence (HCC) Expected: 01/21/2024, Expires: 01/20/2025 Health Maintenance Due Date Last Done Comments [...] as of this encounter Visit Diagnoses Diagnosis Opioid dependence (HCC)- Primary Opioid type dependence, unspecified documented in this [...] and were consensually agreed upon. Care Teams Welding Rod Coater Relationship Specialty Start Date End Date Aldo Anthony MD [address] [place] [phone] PCP - General Family Medicine 06/25/18 documented as of this encounter
--- OUTSIDE RECORDS SUMMARY | 2024-06-03 07:35 | External Medical Summary ---
Author Name Unknown Address Unknown Organization K1G:LABORATORY [facility] - [address] [facility] [address] Laboratory Report Ordering Provider Test Date Status PETE ADKINS 02/22/2024 15:47:27 Final RAPID SURVEILLANCE Observation Date Value Abnormality Reference (Units ) Status SARS Coronavirus 2 02/22/2024 15:47:27 Negative N egative Final No SARS-CoV2 Coronavirus RNA detected by PCR (amplified probe).
This express test was developed and its performance characteristics determined by [facility]. It has not been cleared or approved by the U.S. Food and Drug Administration (FDA). FDA does not require this test to go thru premarket FDA review. This test is used for clinical purposes. It should not be regarded as investigational or for research. This laboratory is certified under the Clinical Laboratory Improvement Amendments (CLIA) as qualified to perform high complexity clinical laboratory testing.

This test is a nucleic acid amplification test (NAAT), a reverse transcriptase polymerase chain reaction (RT-PCR) test, or a Centers for Disease Control-acceptable equivalent. The test is performed in a high complexity Clinical Laboratory Improvement Amendments-(CLIA) certified laboratory. The test is acceptable for SARS-CoV-2 diagnosis, surveillance, and travel within the [place] and to most countries. Please check with local testing authorities about requirements before travel.

The validation of bronchial specimens, tracheal aspirates, and sputum for this assay was developed and performance characteristics determined by [facility]. The validation of alternate specimen types has not been cleared or approved by the U.S. Food and Drug Administration (FDA). It has been determined that such clearance is not necessary. Influenza virus A RNA [Prese nce] in Specimen by [facility] with probe detection 02/22/2024 15:47:27 Negative Negative Final No Influenza A RNA detected by PCR (amplified probe) Influenza virus B RNA [Prese nce] in Specimen by [facility] with probe detection 02/22/2024 15:47:27 Negative Negative Final No Influenza B RNA detected by PCR (amplified probe) Respiratory syncytial virus RNA [Identifier] in Specimen by [facility] with probe detection 02/22/2024 15:47:27 Negative Negative Final No Respiratory Syncytial Vir us RNA detected by PCR (amplified probe) Performing Location LABORATORY [address] [address]
--- OUTSIDE RECORDS SUMMARY | 2024-06-03 07:35 | External Medical Summary ---
Author Name Unknown Address Unknown Organization K01:LAB[facility]ATORY [facility] [place] [address] Harjinder MAGALLON [address] Laboratory Report Ordering Provider Test Date Status JAMEY CARRIZALES 01/23/2024 11:05:31 Final Observation Date Value Abnormality Reference (Units ) Status Triglyceride 01/23/2024 11:05:31 90 <=174 ( mg/dL) Final Triglyceride Reference Range s (mg/dL):
<150 Acceptable
150-174 Borderline high
175-499 High
>=500 Very high Cholesterol 01/23/2024 11:05:31 140 <200 (mg /dL) Final Total Cholesterol Reference Ranges (mg/dL):
<200 Desirable
200-239 Borderline high
>=240 High HDL 01/23/2024 11:05:31 57 >49 (mg/dL ) Final HDL Cholesterol Reference Ra nges (mg/dL):
>=60 High (Desirable)
<50 Low (Undesirable) For Females
<40 Low (Undesirable) For Males NON-HDL CHOLESTEROL 01/23/2024 11:05:31 83 <=159 (mg/dL) Final Non-HDL Cholesterol Referenc e Range (mg/dL):
<100 Target level for high risk ASCVD patient
<130 Optimal for general population
130-159 Near optimal for general population
160-189 Borderline High
190-219 High
>=220 Very High LDL, (calculated) 01/23/2024 11:05:31 65 <= 129 (mg/dL) Final LDL Cholesterol Reference Ra nges (mg/dL):
<70 Target level for high risk ASCVD patient
<100 Optimal for general population
100-129 Near optimal for general population
130-159 Borderline high
160-189 High
>=190 Very high Performing Location LAB[facility]ATORY [facility] [place] [address] [facility] [address]
--- OUTSIDE RECORDS SUMMARY | 2024-06-03 07:35 | External Medical Summary ---
Author Name Unknown Address Unknown Organization K1G:LABORATORY [facility] - [address] [place] [id number] Laboratory Report Ordering Provider Test Date Status PETE ADKINS 02/22/2024 15:42:58 Final Observation Date Value Abnormality Reference (Units ) Status WBC, Total 02/22/2024 15:42:58 6.41 4.00-10.8 0 (K/uL) Final RBC 02/22/2024 15:42:58 4.61 3.85-5.15 (M/uL) Final Hemoglobin 02/22/2024 15:42:58 15.0 12.0-15.3 (g/dL) Final HCT 02/22/2024 15:42:58 43.3 36.0-45.2 (%) Final MCV 02/22/2024 15:42:58 93.9 81.5-97.5 (fL) Final MCH 02/22/2024 15:42:58 32.5 27.0-34.0 (pg) Final MCHC 02/22/2024 15:42:58 34.6 32.0-36.0 (g/dL) Final RDW 02/22/2024 15:42:58 11.5 11.5-15.5 (%) Final Platelets 02/22/2024 15:42:58 158 140-400 (K /uL) Final MPV 02/22/2024 15:42:58 10.0 6.6-11.1 ( fL) Final Performing Location LABORATORY [facility] - [address] [facility] [address]
--- OUTSIDE RECORDS SUMMARY | 2024-06-03 07:35 | External Medical Summary ---
Author Name Unknown Address Unknown Organization K1G:LABORATORY [facility] - [address] [facility] [address] Laboratory Report Ordering Provider Test Date Status PETE ADKINS 02/22/2024 15:42:58 Final Observation Date Value Abnormality Reference (Units ) Status BUN 02/22/2024 15:42:58 8 6-20 (mg/dL) Final Creatinine 02/22/2024 15:42:58 0.7 0.5-1.0 (mg/dL) Final Glomerular filtration rate/1.73 sq M.predicted [Volume Rate/Area] in Serum, Plasma or Blood by Creatinine-based formula (CKD-EPI) 02/22/2024 15:42:58 >90 >=60 (mL/min) Final eGFR is calculated based on the CKD-EPI 2020 equation. Sodium 02/22/2024 15:42:58 138 135-146 (m mol/L) Final Potassium 02/22/2024 15:42:58 4.0 3.5-5.1 (m mol/L) Final Cl 02/22/2024 15:42:58 104 98-107 (mm ol/L) Final CO2 02/22/2024 15:42:58 26 22-32 (mmo l/L) Final Anion gap 02/22/2024 15:42:58 8 7-15 (mmol /L) Final Glucose 02/22/2024 15:42:58 85 70-120 (mg /dL) Final Albumin 02/22/2024 15:42:58 4.3 3.8-5.0 (g /dL) Final AST (Aspartate aminotransferase) 02/22/2024 15:42:58 53 Above high normal 10-35 (U/L) Final Alk Phos 02/22/2024 15:42:58 41 35-130 (U/ L) Final Bilirubin, Total 02/22/2024 15:42:58 0.5 <=1 .2 (mg/dL) Final Calcium 02/22/2024 15:42:58 9.3 8.4-10.2 ( mg/dL) Final Protein 02/22/2024 15:42:58 6.8 6.0-8.3 (g /dL) Final ALT (Alanine aminotransferase) 02/22/2024 15:42:58 77 Above high normal 10-35 (U/L) Final Performing Location LABORATORY [facility] - [address] [place] [phone]
--- OUTSIDE RECORDS SUMMARY | 2024-06-03 07:35 | External Medical Summary | Summary of Care ---
Author Name Unknown Organization [facility] Address [address] [place] [address] Phone [phone] Care Team Providers Care Instructional Technology Director Name Role Phone Aldo Anthony MD Primary Care P rovider Reason for Referral * Evaluate & Treat - Unlimited Visits (Within 30 days (routine)) - Pending Review Specialty Diagnoses / Procedures Referred By Sunny t Referred To Contact Obstetrics/Gynecology / Gynecology Obstetrics Diagnoses Papanicolaou smear for cervical cancer screening Aldo Anthony MD [address] [place] [phone] Referral ID Status Reason Start Date Expiration Date Visits Requested Visits Authorized [id number] Pending Review Specialty Services Required 12/09/[phone] Question Answer Referral Priority Within 30 days (routine) What condition is the patient being seen for? Annual Annuals should only be placed with a priority of 30 days I acknowledge Where should this appointment be scheduled? [facility] Comments There were no vitals taken for this visit. Reason for Visit * Reason Comments Follow Up Encounter Details Date Type Department Care Team ([facility] [address] Contact Info) Description 12/09/2023 5:10 PM EDT Telemedicine Family Practice [address] [phone] Aldo Anthony MD [address] [place] [phone] Papanicolaou smear for cervical cancer screening*; BRIDGET (generalized anxiety disorder); Substance induced mood disorder (HCC); Screening for depression Allergies No known active allergiesdocumented as of this encounter (statuses as of 12/09/2023) Medications Medication Sig Dispensed Refills Start Date End Date Status Buprenorphine HCl-Naloxone HCl 8-2 MG Sublingual Tablet Sublingual (Suboxone) Place 1 Tablet under the tongue in the morning. 05/06/2023 Active Naloxone HCl 4 MG/0.1ML Nasal Liquid (Narcan Nasal) Administer 0.1 mL into nostril as needed. 05/06/2023 Active Gabapentin 600 MG Oral Tablet (Neurontin)Indic ations:BRIDGET (generalized anxiety disorder) Take 1 Tablet by mouth in the morning and 1 Tablet at noon and 1 Tablet before bedtime. 90 Tablet 2 12/09/2023 Active QUEtiapine Fumarate 100 MG Oral Tablet (SEROquel)Indica tions:Substance induced mood disorder (HCC) Take 1-1.5 Tablets by mouth at bedtime. 45 Tablet 5 12/09/2023 Active QUEtiapine Fumarate 100 MG Oral Tablet (SEROquel)Indica tions:Substance induced mood disorder (HCC) TAKE 1 TABLET BY MOUTH EVERYDAY AT BEDTIME 30 Tablet 5 10/23/2023 12/09/2023 Discontinued (Refill) Gabapentin 600 MG Oral Tablet (Neurontin)Indic ations:BRIDGET (generalized anxiety disorder) TAKE 1 TABLET BY MOUTH IN THE MORNING AT AT NOON AND BEFORE BEDTIME 90 Tablet 12/07/2023 12/09/2023 Discontinued (Refill) documented as of this encounter (statuses as of 12/09/2023) Active Problems Problem Noted Date Diagnosed Date [...] as of this encounter (statuses as of 12/09/2023) Resolved Problems Problem Noted Date Diagnosed Date [...] as of this encounter (statuses as of 12/09/2023) Immunizations Name Administration Dates Next Due DTaP [...] No 06/11/2019 documented as of this encounter Progress Notes * Aldo Anthony MD - 12/09/2023 5:10 PM EDT Patient location: HOME. I was in a hospital or clinic location. After connecting through [email or web address],patient was verified with two unique identifiers. Patient (or authorized legal education courses sales representative) wasthen informed that this was a Telemedicine visit and being conducted confidentially over secure lines. Methods to assure confidentiality were taken. Patient acknowledged consent and understanding of privacy and security of the Telemedicine visit. The patient agreed to participate. Subjective: Maria Telles is a 33 year old female. Chief Complaint Patient presents with Follow Up HPI: Patient requested appointment for follow-up chronic medical problems. Refers doing well. Taking Seroquel 100 mg at bedtime. Has problems falling asleep at times and wonders if she can take a higher dose. Sometimes Seroquel makes her feel a little sedated in the morningthough. He is not sure she wants to go to 200 mg at night. Also taking Gabapentin 600 mg tid. Denies sedation or weight gain. Takes for nerve pain and anxiety. Denies any other side effects. Taking Suboxone from [facility] online. Denies depression or anhedonia. Smokes 1 PPD. Last PAP at [facility], get done q 5 yrs. Due for Pap smear and agrees to see mushroom packer for that. PMH: Patient Active Problem List Diagnosis ADVANCE DIRECTIVE INFORMATION Chronic hepatitis C without hepatic coma (HCC) Amphetamine abuse (HCC) Substance induced mood disorder (HCC) Opioid use disorder, severe, dependence (HCC) BRIDGET (generalized anxiety disorder) Moderate episode of recurrent major depressive disorder (HCC) Mood disorder (HCC) History of substance use disorder History of opioid abuse (HCC) Current Outpatient Medications Medication Sig Dispense Refill Buprenorphine HCl-Naloxone HCl 8-2 MG Sublingual Tablet Sublingual (Suboxone) Place 1 Tablet under the tongue in the morning. Naloxone HCl 4 MG/0.1ML Nasal Liquid (Narcan Nasal) Administer 0.1 mL into nostril as needed. QUEtiapine Fumarate 100 MG Oral Tablet (SEROquel) TAKE 1 TABLET BY MOUTH EVERYDAY AT BEDTIME 30 Tablet 5 Gabapentin 600 MG Oral Tablet (Neurontin) TAKE 1 TABLET BY MOUTH IN THE MORNING AT AT NOON AND BEFORE BEDTIME 90 Tablet 0 No current facility-administered medications for this visit. Past Medical History: Diagnosis Date NO KNOWN PROBLEMS No past surgical history on file. Review of patient's allergies indicates: No Known Allergies Family History Problem Relation Name Age of Onset Allergies Mother seasonal Hypertension Mother Musculo-skeletal Disorder Mother MS Cancer Mother breast age 47 Hypertension Father Lung Disorder Grandmother (Paternal) emphysema Mental Disorder Brother add Neurological Disorder Brother Autistic Family Status Relation Status Mo (Not Specified) Fa (Not Specified) PGMA (Not Specified) Bro (Not Specified) Bro (Not Specified) Social History Socioeconomic History Marital status: Single Spouse name: Not on file Number of children: Not on file Years of education: Not on file Highest education level: Not on file Occupational History Not on file Tobacco Use Smoking status: Every Day Current packs/day: 1.00 Average packs/day: 1 pack/day for 5.0 years (5.0 ttl pk-yrs) Types: Cigarettes Smokeless tobacco: Never Vaping Use Vaping status: Never Used Substance and Sexual Activity Alcohol use: No Drug use: Not Currently Types: "Bath Salts", Amphetamines, Oxycodone, Heroin Sexual activity: Not Currently Partners: Male control/protection: Condom Other Topics Concern Not on file Social History Narrative Not on file Social Determinants of Health Financial Resource Strain: High Risk (05/06/2023) Financial Resource Strain Do you have any trouble paying for your medications, or do you think you might in the future? (Adult - for ages 18 years and over): Yes Does your family have trouble paying for medicine? (Household - for ages 0-17 years): Not on file Food Insecurity: No Food Insecurity (05/06/2023) Food Insecurity Do you need food for this week? (Adult - for ages 18 years and over): No Are you able to get enough food for your family? (Household - for ages 0-17 years): Not on file Does your family need food this week? (Household - for ages 0-17 years): Not on file Do you always have enough food for your family? (Household - for ages 0-17 years): Not on file Transportation Needs: Unmet Transportation Needs (05/06/2023) Transportation Needs Do you have trouble getting a ride to medical visits or work? (Adult - for ages 18 years and over):Sometimes True Does your family have a hard time getting a ride to doctors visits? (Household - for ages 0-17 years): Not on file Has lack of transportation kept you from medical appointments, meetings, work, or from getting things needed for daily living? Check all that apply. (Adult - for ages 18 years and over): Not on file Do you (or your family) have trouble finding or paying for a ride (transportation)? (Household - for ages 0-17 years): Not on file Social Connections: Socially Isolated (05/06/2023) Social Connections How often do you feel lonely or isolated from those around you? (Adult - for ages 18 years and over): Always Housing Stability: Low Risk (05/06/2023) Housing Stability Do you currently live in a snf or have no steady place to sleep at night? (Adult - for ages 18 years and over): No Do you think you are at risk of becoming homeless? (Adult - for ages 18 years and over): No Does your family worry about paying for your home or becoming homeless? (Household - for ages 0-17 years): Not on file Are you homeless or worried that you might be in the future? (Adult - for ages 18 years and over): Not on file Are you (or your family) homeless or worried that you might be in the future? (Household - for ages0-17 years): Not on file Objective: There were no vitals taken for this visit. Physical Exam Constitutional: General: She is not in acute distress. Appearance: She is not toxic-appearing. Pulmonary: Effort: Pulmonary effort is normal. No respiratory distress. Neurological: Mental Status: She is alert and oriented to person, place, and time. Psychiatric: Mood and Affect: Mood normal. Behavior: Behavior normal. ASSESSMENT: Papanicolaou smear for cervical cancer screening (Primary) BRIDGET (generalized anxiety disorder) Substance induced mood disorder (HCC) Patient advised to increase Seroquel to 150 mg at night on nights and she can not sleep. Ideally try to stay on 100 mg at night but has a enough medication in her new prescription to increase to 150 at night if needed. Continue gabapentin as prescribed. Suboxone his prescribe it outside provider. Referred to mushroom packer for wellness exam including Pap smear. Encouraged to quit tobacco. Patient has been verbally educated on the need or importance of Tdap Vaccine, Pneumococcal Vaccine,Flu Vaccine, and COVID-19 booster and patient has declined topic(s). Patient has been verbally educated on the need or importance of Tdap Vaccine, Pneumococcal Vaccine,Flu Vaccine, and COVID booster and patient has declined topic(s). Follow Up: Return in about 6 months (around 06/07/2024), or if symptoms worsen or fail to improve, for f/u with PAC Rohini. | For: f/u with PAC Rohini Aldo Sinha MD documented in this encounter Plan of Treatment Scheduled Referrals Name Type Priority Associated Diagnoses Orde r Schedule PRESTRESSED [facility] REFERRAL OP Referral Within 30 days (routine) Papanicolaou smear for cervical cancer screening Ordered: 12/09/2023 Health Maintenance Due Date Last Done Comments [...] (#1) 2023 04/30/2011, 12/24/2009 Depression Monitoring 12/08/2024 12/09/2023, 023 Hepatitis B Vaccine Completed 01/05/1997, 09/02/1996, 06/02/1996 MENINGOCOCCAL (MENACTRA/MENVEO) Aged Out 06/16/2006, 06/16/2006 No longer eligibl e based on patient's age to complete this topic HPV (Gardasil) Vaccine Completed 7, 08/21/2006, 06/16/2006 documented as of this encounter Medical Devices Not on filedocumented as of this encounter Visit Diagnoses Diagnosis Papanicolaou smear for cervical cancer screening- Primary Screening for malignant neoplasm of the cervix BRIDGET (generalized anxiety disorder) Generalized anxiety disorder Substance induced mood disorder (HCC) Drug-induced mood disorder Screening for depression documented in this encounter Advance Directives * [...] and were consensually agreed upon. Care Teams Instructional Technology Director Relationship Specialty Start Date End Date Aldo Anthony MD [address] [place] [phone] PCP - General Family Medicine 06/25/18 documented as of this encounter
--- OUTSIDE RECORDS SUMMARY | 2024-06-03 07:35 | External Medical Summary ---
Author Name Unknown Address Unknown Organization K01:LABORATORY [facility] [place] - [address] [place] [address] Laboratory Report Ordering Provider Test Date Status SUMIT ZAMORA IV 01/23/2024 11:34:49 Final Cutoff Concentration:
Dr ug Level
Buprenorphine 5 ng/mL

Screening results are presumptive and can only be used for medical purposes. Positive screening results are reflexed to confirmatory testing. Observation Date Value Abnormality Reference (Units ) Status Buprenorphine [Presence] in Urine 01/23/2024 11:34:49 Positive Abnormal Negative Final Performing Location LABORATORY [facility] [place] - [facility] [address]
--- OUTSIDE RECORDS SUMMARY | 2024-06-03 07:35 | External Medical Summary ---
Author Name Unknown Address Unknown Organization K1G:[facility] - [address] [place] [phone] Laboratory Report Ordering Provider Test Date Status PETE ADKINS 02/22/2024 15:47:27 Final Cutoff Concentrations:
D rug Level
Amphetamines 500 ng/mL
Benzodiazepines 300 ng/mL
Cannabinoids 50 ng/mL
Cocaine Metabolite 150 ng/mL
Morphine / Codeine 300 ng/mL
Methadone 300 ng/mL
Oxycodone 100 ng/mL

Screening results are presumptive and can only be used for medical purposes. Positive screening results are reflexed to confirmatory testing. Observation Date Value Abnormality Reference (Units ) Status Amphetamines, Urine screen 02/22/2024 15:47:27 Negative Negative Final Benzodiazepines, Urine screen 02/22/2024 15:47:27 Negative Negative Final Cannabinoids, Urine screen 02/22/2024 15:47:27 Negative Negative Final Cocaine Metabolite, Urine screen 02/22/2024 15:47:27 Negative Negative Final Methadone [Presence] in Urine 02/22/2024 15:47:27 Negative Negative Final Opiates, Urine screen 02/22/2024 15:47:27 Negative Negative Final oxyCODONE [Presence] in Urine by Screen method 02/22/2024 15:47:27 Negative Negative Final Performing Location [facility] [address] [facility] [address]
--- OUTSIDE RECORDS SUMMARY | 2024-06-03 07:35 | External Medical Summary ---
Author Name Unknown Address Unknown Organization K1G:LABORATORY [facility] - [address] [facility] [address] Laboratory Report Ordering Provider Test Date Status JAMEY CARRIZALES 01/23/2024 11:05:31 Final Observation Date Value Abnormality Reference (Units ) Status SYNC LEUKOCYTES IN BLOOD BY AUTOMATED COUNT 01/23/2024 11:05:31 5.11 4.00-10.80 (K/uL) Final Segs 01/23/2024 11:05:31 49.8 40.0-75.0 (%) Final Lymphs % 01/23/2024 11:05:31 38.9 18.0-42.0 (%) Final Monos 01/23/2024 11:05:31 8.4 1.0-11.0 (%) Final Eosinophils 01/23/2024 11:05:31 2.7 0.0-6.0 (%) Final Basos 01/23/2024 11:05:31 0.2 0.0-2.0 (%) Final Absolute Segs 01/23/2024 11:05:31 2.54 1.80-7.70 (K/uL) Final Lymphs, absolute 01/23/2024 11:05:31 1.99 1.00-4.80 (K/ul) Final Monos, Abs 01/23/2024 11:05:31 0.43 0.00-1.10 (K/uL) Final Eos, Abs 01/23/2024 11:05:31 0.14 0.00-0.70 (K/uL) Final Basos, Abs 01/23/2024 11:05:31 0.01 0.00-0.20 (K/uL) Final Performing Location [facility] [address] [facility] [address]
--- OUTSIDE RECORDS SUMMARY | 2024-06-03 07:35 | External Medical Summary ---
Author Name Unknown Address Unknown Organization K1G:LABORATORY [facility] - [address] [place] [id number] Laboratory Report Ordering Provider Test Date Status PETE ADKINS 02/22/2024 15:42:58 Final Observation Date Value Abnormality Reference (Units ) Status Ethanol 02/22/2024 15:42:58 Negative Negative Final Performing Location LABORATORY [facility] - [address] [facility] [address]
--- OUTSIDE RECORDS SUMMARY | 2024-06-03 07:35 | External Medical Summary ---
Author Name Unknown Address Unknown Organization K1G:LABORATORY [facility] - [address] [facility] [address] Laboratory Report Ordering Provider Test Date Status JAMEY CARRIZALES 01/23/2024 11:05:31 Final Observation Date Value Abnormality Reference (Units ) Status BUN 01/23/2024 11:05:31 9 6-20 (mg/dL) Final Creatinine 01/23/2024 11:05:31 0.8 0.5-1.0 (mg/dL) Final Glomerular filtration rate/1.73 sq M.predicted [Volume Rate/Area] in Serum, Plasma or Blood by Creatinine-based formula (CKD-EPI) 01/23/2024 11:05:31 >90 >=60 (mL/min) Final eGFR is calculated based on the CKD-EPI 2020 equation. Sodium 01/23/2024 11:05:31 136 135-146 (m mol/L) Final Potassium 01/23/2024 11:05:31 4.2 3.5-5.1 (m mol/L) Final Cl 01/23/2024 11:05:31 100 98-107 (mm ol/L) Final CO2 01/23/2024 11:05:31 27 22-32 (mmo l/L) Final Anion gap 01/23/2024 11:05:31 9 7-15 (mmol /L) Final Glucose 01/23/2024 11:05:31 77 70-120 (mg /dL) Final Albumin 01/23/2024 11:05:31 4.7 3.8-5.0 (g /dL) Final AST (Aspartate aminotransferase) 01/23/2024 11:05:31 65 Above high normal 10-35 (U/L) Final Alk Phos 01/23/2024 11:05:31 44 35-130 (U/ L) Final Bilirubin, Total 01/23/2024 11:05:31 0.8 <=1 .2 (mg/dL) Final Calcium 01/23/2024 11:05:31 10.1 8.4-10.2 ( mg/dL) Final Protein 01/23/2024 11:05:31 7.9 6.0-8.3 (g /dL) Final ALT (Alanine aminotransferase) 01/23/2024 11:05:31 99 Above high normal 10-35 (U/L) Final Performing Location LABORATORY [facility] - [address] [place] [phone]
--- OUTSIDE RECORDS SUMMARY | 2024-06-03 07:35 | External Medical Summary | Summary of Care ---
Author Name Unknown Organization [facility] Address [address] [place] [address] Phone [phone] Care Team Providers Care Automation Controls Engineer Name Role Phone Aldo Antohny MD Primary Care P rovider Reason for Visit * Reason Comments Hallucinations * Auth/Cert Specialty Diagnoses / Procedures Referred By Sunny burgess Referred To Contact [facility] [address] [place] [address] Phone: tel:[phone] Emergency Department ([facility]) [address] [place] [address] Phone: tel: fax: Referral ID Status Reason Start Date Expiration Date Visits Re quested Visits Authorized [id number] Encounter Details Date Type Department Care Team (Late st Contact Info) Description 02/22/2024 3:21 PM EST - 02/22/2024 7:17 PM EST Emergency Emergency Department ([facility]) [address] [place], [place] [id number] Janee Truong DO [address] [place] [address] Daniel Sherman MD [address] [place] [address] SHERITA FERGUSON [address] Anxiety state (Primary Dx); Hallucinations Discharge Disposition: Home - Self Care Allergies No known active allergiesdocumented as of this encounter (statuses as of 02/23/2024) Medications Buprenorphine HCl-Naloxone HCl 8-2 MG Sublingual [...] as of this encounter (statuses as of 02/23/2024) Active Problems Problem Noted Date Diagnosed Date [...] as of this encounter (statuses as of 02/23/2024) Resolved Problems Problem Noted Date Diagnosed Date [...] as of this encounter (statuses as of 02/23/2024) Immunizations Name Administration Dates Next Due DTaP [...] PM EST documented as of this encounter Last Filed Vital Signs Vital Sign Reading Time Taken Comments Blood Pressure 115/75 02/22/2024 7:15 PM EST Pulse 89 02/22/2024 7:15 PM EST Temperature 36.5 C (97.7 F) 02/22/2024 7:15 PM ES T Respiratory Rate 20 02/22/2024 7:15 PM EST Oxygen Saturation 96% 02/22/2024 7:15 PM EST Inhaled Oxygen Concentration - - Weight - - Height - - Body Mass Index - - documented in this encounter Functional Status * Are you [...] Aakash Gonzalez RN documented in this encounter ED Notes * Alice Hawkins RN - 02/22/2024 3:31 PM EST Patient arrived to the ED for evaluation of auditory hallucinations, which have been ongoing. Patient reports that she can not understand what they are saying and just sounds like "mumbling." Patientdenies suicidal/homicidal ideations. MD in to see patient. Patient's mother at bedside. documented in this encounter Miscellaneous Notes * Pt Handout (on AVS) - Daniel Sherman MD - 02/22/2024 7:13 PM EST [id number] Anxiety Reaction Anxiety is the feeling we all get when we think something bad might happen. It is a normal responseto stress. It most often causes only a mild reaction. But it can interfere with daily life when anxiety is more severe. In some cases, you may not know what you?re anxious about. Anxiety seems to have both mental and physical triggers. You may have stress from home and family. Or work and social relationships. Anxiety tends to run in families. This may mean it?s linked to genes. During an anxiety reaction, you may feel: Helpless Nervous Depressed Grouchy Your body may show signs of anxiety in many ways. You may have: Dry mouth Shakiness Dizziness Weakness Trouble breathing Fast breathing Chest pressure Sweating Headache Nausea Diarrhea Tiredness Inability to sleep Sexual problems Home care Try to find those things that set off anxiety in your life. They may not be obvious. They may include: Daily hassles of life. This can include traffic jams, missed appointments, or car troubles. Major life changes. This means both good changes, such as a new baby or job promotion. This can also mean tough life changes, such as loss of a job or loss of a loved one. Overload. This means feeling that you have too many responsibilities. And that you can't take care of all of them. Feeling helpless. You may feel you don?t have any control or choices. You may feel that your problems can't be solved. Notice how your body reacts to stress. This will help you take action before the stress sets off anxiety. When you can, make changes to reduce the sources of your stress. But stress in life often can't be prevented. It is important to learn how to manage stress to reduce anxiety. There are many proven methods that will reduce your anxiety. These include: Exercise Good nutrition Getting enough sleep Relaxation methods Breathing exercises Visualization Biofeedback Meditation Counseling Medicine For more information about this, talk with your healthcare provider. Or check online or at your local library or bookstore. You'll find many books and audiobooks on this subject. Follow-up care If you feel your anxiety is not getting better with self-help, call your healthcare provider. Or make an appointment with a counselor. You may need short-term counseling or medicine to help you manage anxiety. Call 911 Call 911 if any of the following occur: Trouble breathing Confusion Drowsiness or trouble waking up Fainting Rapid heart rate Seizure New chest pain that becomes more severe, lasts longer, or spreads into your shoulder, arm, neck,jaw, or back Call or text [phone] if you have thoughts of harming yourself or others. You will be connected to trained crisis counselors at the [employer]. An online chat option is also available at [email or web address]. You can also call [employer] at [phone] ([phone]). Lifeline is free and available 06/10. When to get medical advice Call your healthcare provider right away if any of the following occur: Symptoms that don't improve or get worse, such as feelings of hopelessness or overwhelming sadness Severe headache not eased by rest and mild pain medicine The [employer] Suicide Prevention Lifeline is available at 168-314-AHOX ([phone]). The Lifeline is available 06/10 and provides free and confidential support. The Lifeline also has an online chat at www.[facility].org. Last Reviewed Date: 2021 00:00:00 [phone] [employer] [facility]. All rights reserved. This information is not intended as a substitute for professional medical care. Always follow your healthcare professional's instructions. * Progress Notes - Non-Billable - Daniel Sherman MD - 02/22/2024 7:05 PM EST Maria Telles was signed out to Daniel Sherman MD from Dr. Truong at 7:00 PM. Vital Signs | ED Orders | ED Results MDM: 33-year-old female signed out to me pending results of her crisis evaluation. She was well-appearing on my exam. Not suicidal. Does prefer outpatient follow up. [facility] team in agreement with closeoutpatient follow up. Discharged in stable condition. Clinical Impressions Anxiety state Hallucinations Disposition Discharged. The patient's condition at disposition was: stable. Daniel Sherman MD * ED Cinder Crusher Operator Note - Nayeli Brambila TECH - 02/22/2024 4:56 PM EST Patient received a meal and is sitting bedside eating. documented in this encounter Plan of Treatment Upcoming Encounters Date Type Department Care Team (Late st Contact Info) Description 06/08/2024 3:45 PM EDT Office Visit Gynecology/Obstetics [place] [address] [place] [address] Kelsea Greene PA-C [address] [place] [address] Health Maintenance Due Date Last [...] Procedure Name Priority Date/Time Associated Diagnosis Comments TOXICOLOGY URINE SCREEN CUP W/ CONFIRMATION ([facility] ONLY) STAT 02/22/2024 3:47 PM EST INFLUENZA A/B RSV SARS-COV2,PCR STAT 02/22/2024 3:47 PM EST DIFFERENTIAL, AUTOMATED STAT 02/22/2024 3:42 PM EST BETA-HCG, QUANTITATIVE STAT 3:42 PM EST COMPREHENSIVE METABOLIC PANEL STAT 02/22/2024 3:42 PM EST CBC STAT 02/22/2024 3:42 PM EST ETHANOL, MEDICAL STAT 02/22/2024 3:42 PM EST CBC STAT 02/22/2024 3:42 PM EST documented in this encounter Results * INFLUENZA A/B RSV SARS-COV2,PCR (02/22/2024 3:47 PM EST) SARS-CoV-2 (COVID-19) Result Negative Negative 02/22/2024 4:57 PM EST LABORATORY [facility] Comment: No SARS-CoV2 Coronavirus RNA detected by PCR (amplified probe). This express test was developed and its performance characteristics determined by [employer]. It has not been cleared or approved [...] (RT-PCR) test, or a Centers for Disease Control- acceptable equivalent. The test is performed in a high complexity Clinical Laboratory Improvement Amendments-(CLIA) certified laboratory. The test is acceptable for SARS-CoV-2 diagnosis, surveillance, and travel within the [place] and to most countries. Please check with local testing authorities about requirements before travel. The validation of bronchial specimens, tracheal aspirates, and sputum for this assay was developed and performance characteristics determined by [employer]. The validation of alternate specimen types has not been cleared or approved by the U.S. Food and Drug Administration (FDA). It has been determined that such clearance is not necessary. Influenza A PCR Result Negative Negative 02/22/2024 4:57 PM EST LABORATORY [facility] Comment:No Influenza A RNA d etected by PCR (amplified probe) Influenza B PCR Result Negative Negative 02/22/2024 4:57 PM EST LABORATORY [facility] Comment:No Influenza B RNA d etected by PCR (amplified probe) RSV PCR Result Negative Negative 02/22/2024 4:57 PM EST LABORATORY [facility] Comment:No Respiratory Syncy tial Virus RNA detected by PCR (amplified probe) Upper Respiratory Mid-turbinate nasal swab / Unknown Non-blood Collection / Unknown 02/22/2024 3:47 PM EST 02/22/2024 4:08 PM EST us Janee Truong DO LAB MICRO - GENERAL ORDERA FARZADS Final Result LABORATORY [address] [address] * TOXICOLOGY URINE SCREEN CUP W/ CONFIRMATION ([facility] ONLY) (02/22/2024 3:47 PM EST) Pathologist [facility] Amphetamines Screen, U Negative Negative 02/22/2024 4:26 PM EST LABORATORY [facility] Benzodiazepines Screen, U Negative Negative 02/22/2024 4:26 PM EST LABORATORY [facility] Cannabinoids Screen, U Negative Negative 02/22/2024 4:26 PM EST LABORATORY [facility] Cocaine Metabolite Screen, U Negative Negative 02/22/2024 4:26 PM EST LABORATORY [facility] Methadone Screen, U Negative Negative 02/21 4:26 PM EST LABORATORY [facility] Morphine/Codeine Screen, U Negative Negative 02/22/2024 4:26 PM EST LABORATORY [facility] Oxycodone Screen, U Negative Negative 02/21 4:26 PM EST LABORATORY [facility] Urine Non-blood Collection / Unknown 02/22/2024 3:47 PM EST 02/22/2024 4:18 PM EST [facility] LABORATORY [facility] - 02/22/2024 4:26 PM EST Cutoff Concentrations: Drug Level Amphetamines 500 ng/mL Benzodiazepines 300 ng/mL Cannabinoids 50 ng/mL Cocaine Metabolite 150 ng/mL Morphine / Codeine 300 ng/mL Methadone 300 ng/mL Oxycodone 100 ng/mL Screening results are presumptive and can only be used for medical purposes. Positive screening results are reflexed to confirmatory testing. us Janee Truong DO LAB URINE ORDERABLES Final Result LABORATORY [address] [address] * DIFFERENTIAL, AUTOMATED (02/22/2024 3:42 PM EST) WBC 6.41 4.00 - 10.80 K/uL 02/22/2024 4:13 PM EST LABORATORY [facility] Neutrophils % 48.9 40.0 - 75.0 % 02/22/2024 4:13 PM EST LABORATORY [facility] Lymphocytes % 40.1 18.0 - 42.0 % 02/22/2024 4:13 PM EST LABORATORY [facility] Monocytes % 8.1 1.0 - 11.0 % 02/22/2024 4:13 PM EST LABORATORY [facility] Eosinophils % 2.7 0.0 - 6.0 % 02/22/2024 4:13 PM EST LABORATORY [facility] Basophils % 0.2 0.0 - 2.0 % 02/22/2024 4:13 PM EST LABORATORY [facility] Absolute Neutrophils 3.14 1.80 - 7.70 K/uL 02/22/2024 4:13 PM EST LABORATORY [facility] Absolute Lymphocytes 2.57 1.00 - 4.80 K/ul 02/22/2024 4:13 PM EST LABORATORY [facility] Absolute Monocytes 0.52 0.00 - 1.10 K/uL 02/22/2024 4:13 PM EST LABORATORY [facility] Absolute Eosinophils 0.17 0.00 - 0.70 K/uL 02/22/2024 4:13 PM EST LABORATORY [facility] Absolute Basophils 0.01 0.00 - 0.20 K/uL 02/22/2024 4:13 PM EST LABORATORY [facility] Blood Venous blood specimen / Unknown Venipuncture / Unknown 02/22/2024 3:42 PM EST 02/22/2024 4:09 PM EST Janee Truong DO LAB BLOOD ORDERABLES Final Result LABORATORY [address] [address] * CBC (02/22/2024 3:42 PM EST) Pathologist [facility] WBC 6.41 4.00 - 10.80 K/uL 02/22/2024 4:13 PM EST LABORATORY [facility] RBC 4.61 3.85 - 5.15 M/uL 02/22/2024 4:13 PM EST LABORATORY [facility] HGB 15.0 12.0 - 15.3 g/dL 02/22/2024 4:13 PM EST LABORATORY [facility] HCT 43.3 36.0 - 45.2 % 02/22/2024 4:13 PM EST LABORATORY [facility] MCV 93.9 81.5 - 97.5 fL 02/22/2024 4:13 PM EST LABORATORY [facility] MCH 32.5 27.0 - 34.0 pg 02/22/2024 4:13 PM EST LABORATORY [facility] MCHC 34.6 32.0 - 36.0 g/dL 02/22/2024 4:13 PM EST LABORATORY [facility] RDW 11.5 11.5 - 15.5 % 02/22/2024 4:13 PM EST LABORATORY [facility] PLT 158 140 - 400 K/uL 02/22/2024 4:13 PM EST LABORATORY [facility] MPV 10.0 6.6 - 11.1 fL 02/22/2024 4:13 PM EST LABORATORY [facility] Blood Venous blood specimen / Unknown Venipuncture / Unknown 02/22/2024 3:42 PM EST 02/22/2024 4:09 PM EST Janee Truong DO LAB BLOOD ORDERABLES Final Result Performing Organization Address City/[facility]/ZIP Co de Phone Number LABORATORY [address] [address] * BETA-HCG, QUANTITATIVE (02/22/2024 3:42 PM EST) [facility] Beta-HCG, Quantitative <0.3 <=1.0 mIU/mL 02/22/2024 4:41 PM EST LABORATORY [facility] Blood Venous blood specimen / Unknown Venipuncture / Unknown 02/22/2024 3:42 PM EST 02/22/2024 4:09 PM EST Narrative LABORATORY [facility] - 02/22/2024 4:41 PM EST hCG can serve as a screening assay for . However, early may not give a positive hCG test result. In addition, some non- women may have a hCG result slightly higher than the reference limit. Careful interpretation of the hCG with clinical history is required to determine whether the patient may be . Daryhuang Truong LAB BLOOD ORDERABLES Final Result Performing Organization Address [facility] Co de Phone Number LABORATORY [address] [address] * ETHANOL, MEDICAL (02/22/2024 3:42 PM EST) [facility] ETHANOL, MEDICAL Negative Negative 02/22/2024 4:36 PM EST LABORATORY [facility] Blood Venous blood specimen / Unknown Venipuncture / Unknown 02/22/2024 3:42 PM EST 02/22/2024 4:09 PM EST Janee Truong DO LAB BLOOD ORDERABLES Final Result Performing Organization Address City/[facility] Co de Phone Number LABORATORY [address] [address] * (ABNORMAL) COMPREHENSIVE METABOLIC PANEL (02/22/2024 3:42 PM EST) [facility] BUN 8 6 - 20 mg/dL 02/22/2024 4:36 PM EST LABORATORY [facility] CREATININE 0.7 0.5 - 1.0 mg/dL 02/22/2024 4:36 PM EST LABORATORY [facility] EGFR >90 >=60 mL/min 02/22/2024 4:36 PM EST LABORATORY [facility] Comment:eGFR is calculated b ased on the CKD-EPI 2020 equation. SODIUM 138 135 - 146 mmol/L 02/22/2024 4:36 PM EST LABORATORY [facility] POTASSIUM 4.0 3.5 - 5.1 mmol/L 02/22/2024 4:36 PM EST LABORATORY [facility] CHLORIDE 104 98 - 107 mmol/L 02/22/2024 4:36 PM EST LABORATORY [facility] CO2 26 22 - 32 mmol/L 02/22/2024 4:36 PM EST LABORATORY [facility] ANION GAP 8 7 - 15 mmol/L 02/22/2024 4:36 PM EST LABORATORY [facility] GLUCOSE 85 70 - 120 mg/dL 02/22/2024 4:36 PM EST LABORATORY [facility] Albumin 4.3 3.8 - 5.0 g/dL 02/22/2024 4:36 PM EST LABORATORY [facility] AST 53(H) 10 - 35 U/L 02/22/2024 4:36 PM EST LABORATORY [facility] Alkaline Phosphatase 41 35 - 130 U/L 02/22/2024 4:36 PM EST LABORATORY [facility] Bilirubin, Total 0.5 <=1.2 mg/dL 02/22/2024 4:36 PM EST LABORATORY [facility] CALCIUM 9.3 8.4 - 10.2 mg/dL 02/22/2024 4:36 PM EST LABORATORY [facility] Protein 6.8 6.0 - 8.3 g/dL 02/22/2024 4:36 PM EST LABORATORY [facility] ALT 77(H) 10 - 35 U/L 02/22/2024 4:36 PM EST LABORATORY [facility] Blood Venous blood specimen / Unknown Venipuncture / Unknown 02/22/2024 3:42 PM EST 02/22/2024 4:09 PM EST us Janee Truong DO LAB BLOOD ORDERABLES Final Result [facility]ATORY [place] [facility] [id number] [place] [address] documented in this encounter Visit Diagnoses Diagnosis Anxiety state- Primary Anxiety state, unspecified Hallucinations 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 Remove any Nicotine patches the patient may currently be wearing prior to applying the new patch. Place on clean hairless area. Remove for patient showers. WASTE INFO: Return packaging and waste medication in zip lock bag to pharmacy - [facility]. Patch Applied 02/22/2024 6:13 PM EST 1 Patch Deltoid Right Upper documented in this encounter Active and Recently Administered Medications Times are shown in EST. Scheduled Medication Order 02/20/2024 02/21/2024 02/22/2024 Nicotine (Nicoderm CQ) 21 MG/24HR patch 1 Patch 1 Patch, Transdermal, ONCE, On Thu02/22/24 at 1815, For 1 dose, Do NOT cut the patch. Remove any Nicotine patches the patient may currently be wearing prior to applying the new patch. Place on clean hairless area. Remove for patient showers. WASTE INFO: Return packaging and waste medication in zip lock bag to pharmacy - [facility]. 1812 (Patch Applied - Provider: Jalen Quiroga LPN)1916 (Due: Patch Removed - Provider: Discharge, Physician - Comment: Time automatically adjusted from order being discontinued) documented in this encounter Advance Directives * [...] and were consensually agreed upon. Care Teams Automation Controls Engineer Relationship Specialty Start Date End Date Aldo Anthony MD [address] [place] [id number] PCP - General Family Medicine 06/25/18 documented as of this encounter
--- OUTSIDE RECORDS SUMMARY | 2024-06-03 07:35 | External Medical Summary ---
Author Name Unknown Address Unknown Organization [id number]:LABORATORY [facility] - [address] [facility] [address] Laboratory Report Ordering Provider Test Date Status PETE ADKINS 02/22/2024 15:42:58 Final Observation Date Value Abnormality Reference (Units ) Status SYNC LEUKOCYTES IN BLOOD BY AUTOMATED COUNT 02/22/2024 15:42:58 6.41 4.00-10.80 (K/uL) Final Segs 02/22/2024 15:42:58 48.9 40.0-75.0 (%) Final Lymphs % 02/22/2024 15:42:58 40.1 18.0-42.0 (%) Final Monos 02/22/2024 15:42:58 8.1 1.0-11.0 (%) Final Eosinophils 02/22/2024 15:42:58 2.7 0.0-6.0 (%) Final Basos 02/22/2024 15:42:58 0.2 0.0-2.0 (%) Final Absolute Segs 02/22/2024 15:42:58 3.14 1.80-7.70 (K/uL) Final Lymphs, absolute 02/22/2024 15:42:58 2.57 1.00-4.80 (K/ul) Final Monos, Abs 02/22/2024 15:42:58 0.52 0.00-1.10 (K/uL) Final Eos, Abs 02/22/2024 15:42:58 0.17 0.00-0.70 (K/uL) Final Basos, Abs 02/22/2024 15:42:58 0.01 0.00-0.20 (K/uL) Final Performing Location [facility] [address] [facility] [address]
--- OUTSIDE RECORDS SUMMARY | 2024-06-03 07:35 | External Medical Summary ---
Author Name Unknown Address Unknown Organization K01:LABORATORY [facility] - [facility] [address] [facility] [address] Laboratory Report Ordering Provider Test Date Status SUMIT ZAMORA IV 01/23/2024 11:34:49 Final Cutoff Concentrations:
Drug Level
Amphetamines 500 [...] Reference (Units ) Status Amphetamines, Urine screen 01/23/2024 11:34:49 Negative Negative Final Benzodiazepines, Urine screen 01/23/2024 11:34:49 Negative Negative Final Cannabinoids, Urine screen 01/23/2024 11:34:49 Negative Negative Final Cocaine Metabolite, Urine screen 01/23/2024 11:34:49 Negative Negative Final fentaNYL [Presence] in Urine by Screen method 01/23/2024 11:34:49 Negative Negative Final HYDROcodone [Presence] in Urine by Screen method 01/23/2024 11:34:49 Negative Negative Final 0-Wuqdhfcqwc-3,5-Dimeth yl-3,3-Diphenylpyrrolid ine (EDDP) [Presence] in Urine 01/23/2024 11:34:49 Negative Negative Final Opiates, Urine screen 01/23/2024 11:34:49 Negative Negative Final oxyCODONE [Presence] in Urine by Screen method 01/23/2024 11:34:49 Negative Negative Final Performing Location LABORATORY [facility] - [address] [facility] [address]
--- OUTSIDE RECORDS SUMMARY | 2024-06-03 07:35 | External Medical Summary | Summary of Care ---
Author Name Unknown Organization [facility] Address [address] [place] [address] Phone [phone] Care Team Providers Care Director Of Business Continuity Name Role Phone Aldo Anthony MD Primary Care P rovider Reason for Visit * Reason Onset Date Comments Order Request 10/21/2023 Encounter Details Date Type Department Care Team ([facility] st Contact Info) Description 10/21/[address] [phone] Aldo Anthony MD [address] [place] [phone] Order Request Allergies No known active allergiesdocumented as of this encounter (statuses as of 01/20/2024) Medications Medication Sig Dispensed Refills Start Date End Date Status Buprenorphine HCl-Naloxone HCl 8-2 MG Sublingual Tablet Sublingual (Suboxone) Place 1 Tablet under the tongue in the morning. 05/06/2023 Active Naloxone HCl 4 MG/0.1ML Nasal Liquid (Narcan Nasal) Administer 0.1 mL into nostril as needed. 05/06/2023 Active Gabapentin 600 MG Oral Tablet (Neurontin)Ivonne cations:BRIDGET (generalized anxiety disorder) Take 1 Tablet by mouth in the morning and 1 Tablet at noon and 1 Tablet before bedtime. 90 Tablet 5 05/14/2023 08/07/202 4 Discontinued(Ref ill) QUEtiapine Fumarate 100 MG Oral Tablet (SEROquel)Indic ations:Substanc e induced mood disorder (HCC) Take 1 Tablet by mouth at bedtime. 30 Tablet 5 05/14/2023 4 Discontinued Gabapentin 600 MG Oral Tablet (Neurontin)Ivonne cations:BRIDGET (generalized anxiety disorder) Take 1 Tablet by mouth in the morning and 1 Tablet at noon and 1 Tablet before bedtime. 90 Tablet 10/21/2023 4 Discontinued documented as of this encounter (statuses as of 01/20/2024) Active Problems Problem Noted Date Diagnosed Date [...] as of this encounter (statuses as of 01/20/2024) Resolved Problems Problem Noted Date Diagnosed Date [...] as of this encounter (statuses as of 01/20/2024) Immunizations Name Administration Dates Next Due DTaP [...] s 05/06/2023 Does the household have a [facility] source of income? (Household - for ages [...] encounter Miscellaneous Notes * Telephone Encounter - Yahaira Floyd OSA - 10/26/2023 9:06 AM EDT LMOM advising patient to return call for scheduling. Please assist with scheduling a follow up with any available provider * Telephone Encounter - Aldo Anthony MD - 10/21/2023 6:41 PM EDT Patient needs to be seen in person. Any provider can see her. Medication electronically prescribed for one-month. * Telephone Encounter - Zackary Callahan LPN - 10/21/2023 6:38 PM EDT Pending Prescriptions: Disp Refills Gabapentin 600 MG Oral Tablet (Neurontin) 90 Tab*5 Sig: Take 1 Tablet by mouth in the morning and 1 Tablet at noon and 1 Tablet before bedtime. Last Visit: 06/30/2022 (in office), 10/21/2023 (telemedicine) Next Visit: Visit date not found Last date the medication was ordered: 05/14/2023 Patient Active Problem List Diagnosis ADVANCE DIRECTIVE INFORMATION Chronic hepatitis C without hepatic coma (HCC) Amphetamine abuse (HCC) Substance induced mood disorder (HCC) Opioid use disorder, severe, dependence (HCC) BRIDGET (generalized anxiety disorder) Moderate episode of recurrent major depressive disorder (HCC) Mood disorder (HCC) History of substance use disorder History of opioid abuse (HCC) Labs: Lab Results Component Value Date/Time CREAT GFR 0.70 08/23/2018 08:10 AM CREATININE - [facility] 0.8 03/31/2022 06:03 PM CREATININE - [facility] 0.6 03/27/2020 03:48 PM CREATININE LEONARDO 57 12/08/2019 12:52 PM CREATININE LEONARDO - [facility] 309 04/16/2021 09:02 AM CREATININE LEONARDO - [facility] 309 04/16/2021 09:02 AM CREATININE ISTAT 0.6 06/15/2019 08:01 AM Lab Results Component Value Date/Time POTASSIUM - [facility] 4.3 03/31/2022 06:03 PM POTASSIUM - [facility] 3.7 03/27/2020 03:48 PM POTASSIUM POCT - [facility] 3.8 06/15/2019 08:01 AM Lab Results Component Value Date/Time TSH - [facility] 2.36 03/31/2022 06:03 PM TSH - [facility] 1.80 10/28/2018 01:45 PM Lab Results Component Value Date/Time LDL CHOLESTEROL (CALCULATED) - [facility] 81 11/30/2019 12:39 PM LDL CHOLESTEROL (CALCULATED) - [facility] 54 06/26/2018 06:54 AM Lab Results Component Value Date/Time ALT - [facility] 90 (H) 03/31/2022 06:03 PM ALT - [facility] 100 (H) 03/27/2020 03:48 PM ALT-OUTSIDE LAB 146 (H) 05/19/2017 04:17 PM Hemoglobin AIC Results: Lab Results Component Value Date/Time HEMOGLOBIN A1C - [facility] 4.9 03/31/2022 06:03 PM HEMOGLOBIN A1C - [facility] 5.0 06/26/2018 06:54 AM * Telephone Encounter - Nette Ochoa, JENNIFER - 10/21/2023 5:27 PM EDT An order was requested for this patient. Name of Requesting Provider: Dr Jermaine Quiroga Order Requested: Gabapentin 600 MG Oral Tablet (Neurontin) Diagnosis/Reason for Request: refills If order request is for Mammogram: Is the patient having any breast symptoms? N/A Is there a chance of ? N/A Has the patient had any breast problems in the past? NA What location AND department does the patient wish to have their order completed at? [facility] Fax Number, if applicable: na If the [...] 06/08/2024 3:45 PM EDT Office Visit Gynecology/Obstetics [address] [place] [address] Kelsea Greene PA-C [address] [place] [address] Health Maintenance Due Date Last [...] and were consensually agreed upon. Care Teams Director Of Business Continuity Relationship Specialty Start Date End Date Aldo Anthony MD [address] [place] [phone] PCP - General Family Medicine 06/25/18 documented as of this encounter
--- NOTE | 2024-06-03 09:16 | History & Physical ---
Date of Service June 03, 2024 Impression / Recommendations Impression MARIA DYSON is a 33-year-old woman who currently lives in [place] with her mom, two brothers, and brother's girlfriend, has a history of depression, anxiety, possible bipolar disorder, and was admitted on 06/03/24 03:12 on a 201 voluntary commitment for hallucinations and psychosis. Diagnostically consistent with unspecified psychosis with differential including MDD with psychotic features vs borderline PD vs bipolar affective disorder current depressive or mixed episode vs primary psychotic disorder vs DID as well as BRIDGET with panic attacks and insomnia. She denies any recent substance use and UDS negative which makes this as unlikely explanation for her current symptoms. Discontinuing quetiapine and starting mirtazapine for sleep and mood. Continuing gabapentin for anxiety. Starting aripiprazole for mood stabilization and psychotic symptoms. Informed patient of potential side effects including high cholesterol and rare movement disorders. Ordering antibiotic for UTI. Plan for approximately one week inpatient stay for medication adjustment and symptom stabilization. Will obtain baseline cholesterol, glucose, and vitamin D levels. Providing artificial tears for eye discomfort. Will monitor for improvement in auditory hallucinations, mood symptoms, and urinary symptoms. Plan for outpatient therapy referral upon discharge. Discussed medication treatment options in detail. Discussed risks, benefits and alternatives. Patient would like to start and consented to mirtazapine for insomnia/depression/anxiety and starting Abilify to see if this better addresses her auditory hallucinations and as off-label augmentation for anxiety and on- label use as augmentation for depression. She is agreeable to discontinuing Seroquel given lack of benefit at current dose and no benefit in past at higher doses. Continue gabapentin as she finds this beneficial for pain and anxiety. Reviewed side effects including but not limited to: sedation/weight gain with mirtazapine; movement (TD, NMS), cardiac (QTc prolongation), and metabolic (stroke, insulin resistance) and necessity for fasting lipid and glucose labwork and AIMS done with score of 0 with Abilify. MNPR given ongoing distressing auditory hallucinations, concern for psychosis Overall I spent a total of 75 minutes for this admission including review of chart records, review of labwork, direct evaluation of the patient, counseling the patient, ordering medication, risk assessment, discussion with the psychiatric liason RN and documentation in the electronic health record. (1) Unspecified mood [affective] disorder: (2) Auditory hallucinations: (3) Generalized anxiety disorder with panic attacks: (4) Insomnia: (5) Depersonalization: Plan 06/03/2024: The patient was admitted to the [facility] ([facility] inpatient mental health unit) on q15 min checks (behavioral with suicide precautions) for safety. The patient will participate in group, recreational, and milieu therapies and will be offered additional individual and family sessions as clinically appropriate. -start Bactrim 160/800mg BID for 3 days for UTI -start mirtazapine 15mg HS -Start abilify 5mg daily -continue prior to admission gabapentin 600mg TID -Stop Seroquel 150mg HS -Fasting lipid panel, HbA1c and Vit D tomorrow morning -Consider option to add SSRI vs additional mood stabilization pending response to above changes Inventory Assets Strengths: supportive relationships, willing to get treatment Needs: safety and stabilization, medication adjustment, additional coping skills, increased outpatient services Suicide Risk Level Suicide Risk Level: Moderate (q15 min suicide checks) (depression, anxiety, auditory hallucinations with hopelessness but denies SI and feels safe in the hospital and feels able to ask for support) Risk Factors Assessment Male: No : Yes Do You Have Access To A Gun?: No Health Problems: Yes (scoliosis) Mental Health Diagnoses: Yes Substance Use Disorders: No (in sustained remission) Previous Attempt: Yes Family History of Suicide: No Previous Psychiatric Hospitalization: Yes Hopelessness: Yes Protective Factors Assessment Employed: Yes Stable Relationships: Yes Supportive Family: Yes Psychiatric History Identifying Data MARIA DYSON is a 33-year-old woman who currently lives in [place] with her mom, two brothers, and brother's girlfriend, has a history of depression, anxiety, possible bipolar disorder, and was admitted on 06/03/24 03:12 on a 201 voluntary commitment for hallucinations and psychosis. Chief Complaint "I'm trying to get myself back, my mind is really loud". History of Present Illness Maria presents for psychiatric admission due to worsening anxiety and depressive symptoms as well as increased auditory hallucinations in the context of longstanding mental health issues and recent life stressors. She describes stressors including starting a new job and all her clothes "got ruined and stretched out, I don't know how it happened". She reports feeling hopeless and experiencing a sense of depersonalization, stating, 'I don't really feel like myself. Even when I look in the mirror, even when I look in the mirror I don't look like myself anymore.' She describes her current symptoms as feeling 'down and up pretty much at the same time,' with low energy and difficulty sleeping without Seroquel. Her anxiety manifests as excessive worry, shakiness, being easily overwhelmed, muscle tension, irritability, and twitching. She experiences panic attacks every couple of months. Maria also reports auditory hallucinations, that are present throughout the day, sometimes perceived as comforting and other times unwanted. She describes that her mind is "nonstop, it's hard for me to think, I don't think a lot of things". She hears voices that are recognizable (sounds like friends) and are talking constantly. She notes this has been really distracting. Sometimes she likes the voices being there and other times she doesn't. She notes "you don't have any privacy for anything". She denies any paranoia. She is currently prescribed gabapentin 600mg three times daily for anxiety and pain (seems to help a bit) and Seroquel 150mg at night, which she has been taking for over a year and a half. She reports that higher doses of Seroquel (up to 600mg) were not effective in managing her auditory hallucinations but she's been unable to stop it because then she struggles with sleep. Psychiatric ROS notable for auditory hallucinations, depressive symptoms, anxiety symptoms, and history of self-harm. No current suicidal ideation reported. History of substance use disorder, currently in remission. Past Psychiatric History Current Psychiatric Diagnosis: Major Depressive Disorder Outpatient Services: No current psychiatrist No current therapist No CM Previous Psych Admissions: 2 prior, last at [facility] 5 years ago Do You Have Access To A Gun?: No History of Previous Suicide Attempt: Yes Describe Attempts in the Past: 2 prior, last >5 years ago Past Medication Trials: -low dose ativan -possible history of escitalopram -trazodone Past Head Trauma/Neuro History History of Concussion/Seizure: No Allergies Allergy/AdvReac Type Severity Reaction Status Date / Time No Known Allergies Allergy Unverified 06/02/24 22:25 Home Medications Medication Instructions Recorded Confirmed Type buprenorphine 300 mg/1.5 mL 300 mg subcut MONTHLY 03/21/25 03/21/25 History solution,exten.rel.subcutaneous syringe (Sublocade) gabapentin 600 mg tablet 600 mg PO TID 06/03/24 06/03/24 History quetiapine 400 mg tablet 400 mg PO HS 06/03/24 06/03/24 History Family History Family History of: Depression Family Mental Health History Comment: Mother Alcohol History Hx of Alcohol Use Over the Past 12 Months: Yes AUDIT Total Score: 15 She doesn't drink alcohol anymore but reports she used to drink "a bottle a night by myself". Stopped drinking three years, has been sober for almost 3-4 years. Smoking Use Have You Smoked or Used Tobacco Products in the Last 30 Days: Yes tobacco type: cigarettes Smoking Status: Heavy tobacco smoker Smoking packs per day: 1 Substance History Hx of Prescription Med Misuse Over the Past 12 Months: No Hx of Over the Counter Med Misuse Over the Past 12 Months: No Hx of Inhalent Misuse Over the Past 12 Months: No Hx of Organic Substance Use Over the Past 12 Months: No Hx of Illegal Substances/Street Drug Use Over Past 12 Months: No Problems as a Result of Past Substance Use: Relationships Ended, Arrested, Life out of Control and Loss of Family Support Problems as a Result of Past Substance Use Comments: 5 years ago patient was incarcerated due to methamphetamine No current recreational use. 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) Marital Status: Single Number Of Children: none Beliefs That Will Affect Care: None Current Legal Problems: No Hx Legal Problems: Yes (probation >5 years ago, for substance use) Hx Traumatic Life Events: No Patient History Medical History Depression Bipolar disorder Anxiety Social History Smoking Status: Heavy tobacco smoker Preferred Language: Panamanian Communication Ability: Effective Electronic Prepress Operator Required: No Beliefs That Will Affect Care: None Feels Safe at Home: Yes Gender Identity: Female Assistive Devices: Contacts Review of Systems Review of Systems: All systems reviewed & are unremarkable except as noted in HPI & below (burning with urination, dry eyes) Physical Exam Psychiatric: Orientation: alert and oriented x 3 Apperance: appropriately dressed and appropriately groomed Eye Contact: + fair eye contact Motor Behavior: no abnormal motor movements Speech: normal rate/rhythm/volume of speech Affect: + depressed affect, + anxious affect and + constricted affect Mood: + depressed mood and + anxious mood Thought Process: + thought blocking and + circumstantial thought process Thought Content: + preoccupation Suicidal Thoughts: denies suicidal thoughts, denies suicidal plan and denies suicidal intent Homicidal Thoughts: denies homicidal thoughts Hallucinations: + auditory hallucinations; no visual hallucinations Cognition: recent memory grossly intact, remote memory grossly intact, attention grossly intact and language grossly intact Insight: + limited insight Judgment: + limited judgement Vital Signs (Past 24 Hours): Last Vital Signs Temp 36.8 C 06/03/24 03:58 Pulse 90 06/03/24 03:58 Resp 16 06/03/24 03:58 BP 135/72 06/03/24 03:58 Pulse Ox 95 06/03/24 03:58 O2 Del Method Room Air 06/03/24 03:58 Exam Statement: A physical exam was performed in the ED by Dr. Loera for the purposes of medical clearance. I accept that physical as correct and adequate for the purposes of the inpatient physical exam. Results & Data ([facility]) Laboratory Results Laboratory Results - last 24 hr 06/02/24 06/02/24 06/02/24 20:20 20:34 21:05 WBC Cancelled RBC Cancelled Hgb Cancelled Hct Cancelled MCV Cancelled MCH Cancelled MCHC Cancelled RDW Std Deviation Cancelled RDW Coeff of Mandy Cancelled Plt Count Cancelled MPV Cancelled Immature Gran % (Auto) Cancelled Neut % (Auto) Cancelled Lymph % (Auto) Cancelled Knox % (Auto) Cancelled Eos % (Auto) Cancelled Baso % (Auto) Cancelled Neut # (Auto) Cancelled Lymph # (Auto) Cancelled Knox # (Auto) Cancelled Eos # (Auto) Cancelled Baso # (Auto) Cancelled Immature Gran # (Auto) Cancelled Absolute Nucleated RBC Cancelled Nucleated RBC % (auto) Cancelled Neutrophils % (Manual) Cancelled Band Neutrophils % Cancelled Lymphocytes % (Manual) Cancelled Prolymphocyte % Cancelled Reactive Lymphs % (Man) Cancelled Monocytes % (Manual) Cancelled Eosinophils % (Manual) Cancelled Basophils % (Manual) Cancelled Metamyelocytes % (Man) Cancelled Myelocytes % (Man) Cancelled Promyelocytes % (Man) Cancelled Blast Cells % (Manual) Cancelled Plasma Cell % (Manual) Cancelled Other Cells % Cancelled Nucleated RBC % Cancelled Neutrophils # (Manual) Cancelled Band Neutrophils # Cancelled Total Absolute Neuts Cancelled Lymphocytes # (Manual) Cancelled Prolymphocyte # Cancelled Reactive Lymphs # Cancelled Total Abs Lymphocytes Cancelled Monocytes # (Manual) Cancelled Eosinophils # (Manual) Cancelled Basophils # (Manual) Cancelled Metamyelocytes # (Man) Cancelled Myelocytes # (Manual) Cancelled Promyelocytes # (Man) Cancelled Blast Cells # (Man) Cancelled Plasma Cell # (Manual) Cancelled Other Cells # Cancelled Nucleated RBCs # (Man) Cancelled Hypersegmented Neuts Cancelled Hyposegmented Neuts Cancelled Hypogranular Neuts Cancelled Large Granular Lymphs Cancelled # Lrg Granular Lymphs Cancelled Hairy Cells Cancelled Smudge Cells Cancelled Toxic Granulation Cancelled Toxic Vacuolation Cancelled Dohle Bodies Cancelled Kaitlyn Rods Cancelled Platelet Estimate Cancelled Hypogranular Platelets Cancelled Giant Platelets Cancelled Platelet Satelliting Cancelled RBC Morphology Cancelled Polychromasia Cancelled Hypochromasia Cancelled Poikilocytosis Cancelled Basophilic Stippling Cancelled Anisocytosis Cancelled Microcytosis Cancelled Macrocytosis Cancelled Spherocytes Cancelled Pappenheimer Bodies Cancelled Sickle Cells Cancelled Target Cells Cancelled Tear Drop Cells Cancelled Ovalocytes Cancelled Stomatocytes Cancelled Sloan-Bertrand Bodies Cancelled Echinocytes Cancelled Acanthocytes (Spur) Cancelled Rouleaux Cancelled RBC Agglutinates Cancelled Schistocytes Cancelled Sezary Cell Cancelled Sodium 139 Potassium 4.5 Chloride 108 H Carbon Dioxide 23 Anion Gap 8 BUN 11 Creatinine 0.64 Est Cr Clr Drug Dosing 122.7 eGFR 120.34 BUN/Creatinine Ratio 17.2 Glucose 82 Calcium 9.6 Total Bilirubin 0.5 AST 52 H ALT 61 H Alkaline Phosphatase 43 Total Protein 6.7 Albumin 4.3 Globulin 2.4 L Albumin/Globulin Ratio 1.8 TSH 0.779 HCG, Qual Negative Urine Color Yellow Urine Appearance Turbid A Urine pH 7.5 Ur Specific Dalton 1.022 Urine Protein Negative Urine Glucose (UA) Negative Urine Ketones Negative Urine Blood Negative Urine Nitrite Positive A Urine Bilirubin Negative Urine Urobilinogen Negative Ur Leukocyte Esterase 2+ H Urine WBC (Auto) 21-50 H Urine RBC (Auto) 0-2 U Hyaline Cast (Auto) 0-2 U Epithel Cells (Auto) 6-10 H Urine Bacteria (Auto) 4+ H POC Ur Test Pending Salicylates < 3.0 L Urine Opiates Screen Neg Ur Methadone, Qual Neg Urine Fentanyl Screen Neg Acetaminophen < 3 L Urine Barbiturates Neg Ur Phencyclidine (PCP) Neg U Amphetamin/Meth Scrn Neg MDMA (Ecstasy) Screen Neg U Benzodiazepines Scrn Neg Ur Cocaine Metabolite Neg U Marijuana (THC) Screen Neg Ethyl Alcohol mg/dL Cancelled SARS-CoV-2, RNA, NAAT Blood Parasites ID Cancelled 06/02/24 06/02/24 06/02/24 21:08 22:39 23:57 WBC 6.41 RBC 4.39 Hgb 14.2 Hct 40.3 MCV 91.8 MCH 32.3 MCHC 35.2 RDW Std Deviation 39.0 RDW Coeff of Mandy 11.5 Plt Count 166 MPV 9.5 Immature Gran % (Auto) 0.2 Neut % (Auto) 51.2 Lymph % (Auto) 34.5 Knox % (Auto) 10.6 Eos % (Auto) 3.0 Baso % (Auto) 0.5 Neut # (Auto) 3.29 Lymph # (Auto) 2.21 Knox # (Auto) 0.68 H Eos # (Auto) 0.19 Baso # (Auto) 0.03 Immature Gran # (Auto) 0.01 Absolute Nucleated RBC Nucleated RBC % (auto) Neutrophils % (Manual) Band Neutrophils % Lymphocytes % (Manual) Prolymphocyte % Reactive Lymphs % (Man) Monocytes % (Manual) Eosinophils % (Manual) Basophils % (Manual) Metamyelocytes % (Man) Myelocytes % (Man) Promyelocytes % (Man) Blast Cells % (Manual) Plasma Cell % (Manual) Other Cells % Nucleated RBC % Neutrophils # (Manual) Band Neutrophils # Total Absolute Neuts Lymphocytes # (Manual) Prolymphocyte # Reactive Lymphs # Total Abs Lymphocytes Monocytes # (Manual) Eosinophils # (Manual) Basophils # (Manual) Metamyelocytes # (Man) Myelocytes # (Manual) Promyelocytes # (Man) Blast Cells # (Man) Plasma Cell # (Manual) Other Cells # Nucleated RBCs # (Man) Hypersegmented Neuts Hyposegmented Neuts Hypogranular Neuts Large Granular Lymphs # Lrg Granular Lymphs Hairy Cells Smudge Cells Toxic Granulation Toxic Vacuolation Dohle Bodies Kaitlyn Rods Platelet Estimate Hypogranular Platelets Giant Platelets Platelet Satelliting RBC Morphology Polychromasia Hypochromasia Poikilocytosis Basophilic Stippling Anisocytosis Microcytosis Macrocytosis Spherocytes Pappenheimer Bodies Sickle Cells Target Cells Tear Drop Cells Ovalocytes Stomatocytes Sloan-Bertrand Bodies Echinocytes Acanthocytes (Spur) Rouleaux RBC Agglutinates Schistocytes Sezary Cell Sodium Potassium Chloride Carbon Dioxide Anion Gap BUN Creatinine Est Cr Clr Drug Dosing eGFR BUN/Creatinine Ratio Glucose Calcium Total Bilirubin AST ALT Alkaline Phosphatase Total Protein Albumin Globulin Albumin/Globulin Ratio TSH HCG, Qual Urine Color Urine Appearance Urine pH Ur Specific Dalton Urine Protein Urine Glucose (UA) Urine Ketones Urine Blood Urine Nitrite Urine Bilirubin Urine Urobilinogen Ur Leukocyte Esterase Urine WBC (Auto) Urine RBC (Auto) U Hyaline Cast (Auto) U Epithel Cells (Auto) Urine Bacteria (Auto) POC Ur Test Salicylates Urine Opiates Screen Ur Methadone, Qual Urine Fentanyl Screen Acetaminophen Urine Barbiturates Ur Phencyclidine (PCP) U Amphetamin/Meth Scrn MDMA (Ecstasy) Screen U Benzodiazepines Scrn Ur Cocaine Metabolite U Marijuana (THC) Screen Ethyl Alcohol mg/dL < 10.0 SARS-CoV-2, RNA, NAAT NEGATIVE Blood Parasites ID Current Inpatient Medications Current Inpatient Medications: Current Inpatient Medications Acetaminophen (Acetaminophen 325 Mg Tab) 650 mg PO Q4H PRN PRN Reason: Headache or Minor Fever Stop: 07/03/24 05:46 Al Hydrox/Mg Hydrox/Simethicone (Aluminum/Magnesium Susp 30 Ml Udc) 30 ml PO Q4H PRN PRN Reason: GI Upset Stop: 07/03/24 05:46 Bismuth Subsalicylate (Bismuth Subsalicylate 262 Mg Chew) 2 tab PO Q30M PRN PRN Reason: Loose Stool/Diarrhea Stop: 07/03/24 05:46 Gabapentin (Gabapentin 100 Mg Cap) 100 mg PO TID PAWEL Stop: 07/03/24 00:44 Last Admin: 06/03/24 01:34 Dose: 100 mg Hydroxyzine HCl (Hydroxyzine Hcl 25 Mg Tab) 50 mg PO HSZ PRN PRN Reason: Insomnia Stop: 07/03/24 05:46 Magnesium Hydroxide (Magnesium Hydroxide Susp 30 Ml Udc) 30 ml PO DAILY PRN PRN Reason: Constipation Stop: 07/03/24 05:46 Miscellaneous (Remove Nicoderm Patch) 1 each N/A DAILY@0859 [facility] Stop: 07/03/24 08:58 Nicotine (Nicotine 21 Mg/24 Hr Tdsy) 1 patch TD QAM [facility] Stop: 07/03/24 08:59 Nicotine Polacrilex (Nicotine Polacrilex 2 Mg Gum) 2 piece MT Q2H PRN PRN Reason: replacement Stop: 07/03/24 05:51 Quetiapine Fumarate (Quetiapine Fumarate 100 Mg Tablet) 150 mg PO HS PAWEL Stop: 07/03/24 00:59 Last Admin: 06/03/24 01:34 Dose: 150 mg Sodium Chloride (Sodium Chloride 0.65% Na Soln 45 Ml ([place])) 1 - 2 sprays NA PRN PRN PRN Reason: Nasal Dryness/Congestion Stop: 07/03/24 05:46
[2024-06-03] MEDS: NICOTINE 21 MG/24 HR TDSY TD SCH (09:41)
[2024-06-03] MEDS: GABAPENTIN 600 MG TAB PO SCH (13:58)
[2024-06-03] MEDS ORDERED: ARTIFICIAL TEARS OPB PRN (15:19)
[2024-06-03] MEDS: SULFAMETHOXAZOLE/TRIMETHOPRIM DS 800/160MG TAB PO SCH (16:13)
[2024-06-03] MEDS: ARIPiprazole 5 MG TAB PO SCH (16:13)
[2024-06-03] MEDS: MIRTAZAPINE TAB 15 MG TAB PO SCH (21:06)
[2024-06-03] MEDS ORDERED: QUEtiapine FUMARATE 200 MG TAB PO SCH (22:00)
[2024-06-04 09:00] LABS: Estimated Average Glucose 91 mg/dl; Hemoglobin A1C 4.8 % (4.5-5.6)
--- NOTE | 2024-06-04 16:04 | Psychiatric Progress Note ---
Date of Service June 04, 2024 Impression / Recommendations Impression ZOHRA DYSON is a 33-year-old woman who currently lives in [place] with her mom, two brothers, and brother's girlfriend, has a history of depression, anxiety, possible bipolar disorder, and was admitted on 06/03/24 03:12 on a 201 voluntary commitment for hallucinations and psychosis. Diagnostically consistent with unspecified psychosis with differential including MDD with psychotic features vs borderline PD vs bipolar affective disorder current depressive or mixed episode vs primary psychotic disorder vs DID as well as BRIDGET with panic attacks and insomnia. She denies any recent substance use and UDS negative which makes this as unlikely explanation for her current symptoms. A:Patient is evasive on interview and provides limited details. Appears psychosis is more related to anxiety rather than from a primary psychotic disorder. Patient reports improvement in anxiety with Abilify and has been sleeping well. MNPR given ongoing distressing auditory hallucinations, concern for psychosis Overall I spent a total of 45 minutes for this admission including review of chart records, review of labwork, direct evaluation of the patient, counseling the patient, ordering medication, risk assessment, discussion with the psychiatric liason RN and documentation in the electronic health record. (1) Unspecified mood [affective] disorder: (2) Auditory hallucinations: (3) Generalized anxiety disorder with panic attacks: (4) Insomnia: (5) Depersonalization: Plan 06/04/2024: Increase aripiprazole to 10 mg daily Questionnaires: Anselmo borderline personality screener and brief dissociative symptoms scale 06/03/2024: The patient was admitted to the [facility] ([facility] mental health unit) on q15 min checks (behavioral with suicide precautions) for safety. The patient will participate in group, recreational, and milieu therapies and will be offered additional individual and family sessions as clinically appropriate. -start Bactrim 160/800mg BID for 3 days for UTI -start mirtazapine 15mg HS -Start abilify 5mg daily -continue prior to admission gabapentin 600mg TID -Stop Seroquel 150mg HS -Fasting lipid panel, HbA1c and Vit D tomorrow morning -Consider option to add SSRI vs additional mood stabilization pending response to above changes Inventory Assets Strengths: supportive relationships, willing to get treatment Needs: safety and stabilization, medication adjustment, additional coping skills, increased outpatient services Suicide Risk Level Suicide Risk Level: Moderate (q15 min suicide checks) (depression, anxiety, auditory hallucinations with hopelessness but denies SI and feels safe in the hospital and feels able to ask for support) Risk Factors Assessment Male: No : Yes Do You Have Access To A Gun?: No Health Problems: Yes (scoliosis) Mental Health Diagnoses: Yes Substance Use Disorders: No (in sustained remission) Previous Attempt: Yes Family History of Suicide: No Previous Psychiatric Hospitalization: Yes Hopelessness: Yes Protective Factors Assessment Employed: Yes Stable Relationships: Yes Supportive Family: Yes Interval History Identifying Information ZOHRA DYSON is a 33-year-old woman who currently lives in [place] with her mom, two brothers, and brother's girlfriend, has a history of depression, anxiety, possible bipolar disorder, and was admitted on 06/03/24 03:12 on a 201 voluntary commitment for hallucinations and psychosis. Chief Complaint Anxiety Review of Systems Sleep Information Total Hours of Sleep: 6.5 Sleep Comments: new admit at 0254 Meal Information Percent Meal Consumed - Breakfast: 100 Percent Meal Consumed - Lunch: 100 Percent Meal Consumed - Dinner: 100 Subjective Subjective Patient was seen & assessed and interval progress reviewed with treatment team nursing and social work Reports voices are getting more intense and worse with anxiety. Says the voices occur inside of her head. Reports previously dissociating in the past but not currently. Was on Celexa 10 to 15 mg in the past and reports it worked well. S ays she slept well last night. Reports a history of unstable emotions, fear of abandonment. Open to therapist connection. Tolerating aripiprazole well. Patient asked for artificial tears and appeared confused and I told her she had some on her nightstand. Physical Exam Psychiatric Orientation: alert and oriented x 3 Apperance: appropriately dressed and appropriately groomed Eye Contact: good eye contact and + fair eye contact Motor Behavior: no abnormal motor movements Speech: normal rate/rhythm/volume of speech Affect: + depressed affect, + anxious affect and + constricted affect Mood: + depressed mood and + anxious mood Thought Process: goal directed thought process, + thought blocking and + circumstantial thought process Thought Content: + preoccupation and reality based without delusions Suicidal Thoughts: denies suicidal thoughts, denies suicidal plan and denies suicidal intent Homicidal Thoughts: denies homicidal thoughts Hallucinations: + auditory hallucinations; no visual hallucinations Cognition: recent memory grossly intact, remote memory grossly intact, attention grossly intact and language grossly intact Estimated Intelligence: consistent with education level Insight: + limited insight and + fair insight Judgment: + limited judgement and + fair judgement Vital Signs (Past 24 Hours) Last Vital Signs Temp 37.1 C 06/04/24 06:35 Pulse 82 06/04/24 06:35 Resp 16 06/04/24 06:35 BP 99/64 L 06/04/24 06:35 Pulse Ox 95 06/03/24 03:58 O2 Del Method Room Air 06/03/24 03:58 Results & Data ([facility]) Laboratory Results Laboratory Results - last 24 hr 06/04/24 07:06 Estimat Average Glucose 91 Hemoglobin A1c 4.8 Triglycerides 89 Cholesterol 105 LDL Cholesterol, Calc 52 VLDL Cholesterol, Calc 18 HDL Cholesterol 35 Cholesterol/HDL Ratio 3.0 25-OH Vitamin D Total 21.3 L Current Inpatient Medications Current Inpatient Medications: Current Inpatient Medications Acetaminophen (Acetaminophen 325 Mg Tab) 650 mg PO Q4H PRN PRN Reason: Headache or Minor Fever Stop: 07/03/24 05:46 Al Hydrox/Mg Hydrox/Simethicone (Aluminum/Magnesium Susp 30 Ml Udc) 30 ml PO Q4H PRN PRN Reason: GI Upset Stop: 07/03/24 05:46 Aripiprazole (Aripiprazole 10 Mg Tab) 10 mg PO QAM PAWEL Stop: 07/05/24 08:59 Artificial Tears (Artificial Tears) 1 drops OPB QID PRN PRN Reason: Dryness Stop: 07/03/24 15:18 Bismuth Subsalicylate (Bismuth Subsalicylate 262 Mg Chew) 2 tab PO Q30M PRN PRN Reason: Loose Stool/Diarrhea Stop: 07/03/24 05:46 Gabapentin (Gabapentin 600 Mg Tab) 600 mg PO TID PAWEL Stop: 07/03/24 13:59 Last Admin: 06/04/24 13:07 Dose: 600 mg Hydroxyzine HCl (Hydroxyzine Hcl 25 Mg Tab) 50 mg PO HSZ PRN PRN Reason: Insomnia Stop: 07/03/24 05:46 Magnesium Hydroxide (Magnesium Hydroxide Susp 30 Ml Udc) 30 ml PO DAILY PRN PRN Reason: Constipation Stop: 07/03/24 05:46 Mirtazapine (Mirtazapine Tab 15 Mg Tab) 15 mg PO HS PAWEL Stop: 07/03/24 21:59 Last Admin: 06/03/24 21:06 Dose: 15 mg Miscellaneous (Remove Nicoderm Patch) 1 each N/A DAILY@0859 [facility] Stop: 07/03/24 08:58 Last Admin: 06/04/24 08:52 Dose: 1 each Nicotine (Nicotine 21 Mg/24 Hr Tdsy) 1 patch TD QAM PAWEL Stop: 07/03/24 08:59 Last Admin: 06/04/24 09:28 Dose: 1 patch Nicotine Polacrilex (Nicotine Polacrilex 2 Mg Gum) 2 piece MT Q2H PRN PRN Reason: replacement Stop: 07/03/24 05:51 Sodium Chloride (Sodium Chloride 0.65% Na Soln 45 Ml ([place])) 1 - 2 sprays NA PRN PRN PRN Reason: Nasal Dryness/Congestion Stop: 07/03/24 05:46 Trimethoprim/Sulfamethoxazole (Sulfamethoxazole/Trimethoprim Ds 800/160mg Tab) 1 tab PO Q12 [facility] Stop: 06/05/24 21:01 Last Admin: 06/04/24 08:33 Dose: 1 tab Mental Health & Subst Abuse Tx Therapist Name of Therapist: N/A Electronics Instructor Name of Electronics Instructor: N/A Post Discharge Appointments Primary Care Physician Name Of Family Doctor/PCP: Ddr. Aldo Quiroga
[2024-06-05] MEDS: ARIPiprazole 10 MG TAB PO SCH (08:53)
--- NOTE | 2024-06-05 15:33 | Psychiatric Progress Note ---
Date of Service June 05, 2024 Impression / Recommendations Impression ZOHRA DYSON is a 33-year-old woman who currently lives in [place] with her mom, two brothers, and brother's girlfriend, has a history of depression, anxiety, possible bipolar disorder, and was admitted on 06/03/24 03:12 on a 201 voluntary commitment for hallucinations and psychosis. Diagnostically consistent with unspecified psychosis with differential including MDD with psychotic features vs borderline PD vs bipolar affective disorder current depressive or mixed episode vs primary psychotic disorder vs DID as well as BRIDGET with panic attacks and insomnia. She denies any recent substance use and UDS negative which makes this as unlikely explanation for her current symptoms. A: Pt endorsing an improvement in racing thoughts, sleep, and function. Reports distressing voices are at baseline. She is future oriented and presents a rational future plan. Tolerating abilify well. No recent dissociative symptoms. MNPR given ongoing distressing auditory hallucinations, concern for psychosis Overall I spent a total of 45 minutes for this admission including review of chart records, review of labwork, direct evaluation of the patient, counseling the patient, ordering medication, risk assessment, discussion with the psychiatric liason RN and documentation in the electronic health record. (1) Unspecified mood [affective] disorder: (2) Auditory hallucinations: (3) Generalized anxiety disorder with panic attacks: (4) Insomnia: (5) Depersonalization: Plan 06/05/2024: Continue medications and treatment plan 06/04/2024: Increase aripiprazole to 10 mg daily Questionnaires: Briones borderline personality screener and brief dissociative symptoms scale 06/03/2024: The patient was admitted to the [facility] ([facility] mental health unit) on q15 min checks (behavioral with suicide precautions) for safety. The patient will participate in group, recreational, and milieu therapies and will be offered additional individual and family sessions as clinically appropriate. -start Bactrim 160/800mg BID for 3 days for UTI -start mirtazapine 15mg HS -Start abilify 5mg daily -continue prior to admission gabapentin 600mg TID -Stop Seroquel 150mg HS -Fasting lipid panel, HbA1c and Vit D tomorrow morning -Consider option to add SSRI vs additional mood stabilization pending response to above changes Inventory Assets Strengths: supportive relationships, willing to get treatment Needs: safety and stabilization, medication adjustment, additional coping skills, increased outpatient services Suicide Risk Level Suicide Risk Level: Moderate (q15 min suicide checks) (depression, anxiety, auditory hallucinations with hopelessness but denies SI and feels safe in the hospital and feels able to ask for support) Risk Factors Assessment Male: No : Yes Do You Have Access To A Gun?: No Health Problems: Yes (scoliosis) Mental Health Diagnoses: Yes Substance Use Disorders: No (in sustained remission) Previous Attempt: Yes Family History of Suicide: No Previous Psychiatric Hospitalization: Yes Hopelessness: Yes Protective Factors Assessment Employed: Yes Stable Relationships: Yes Supportive Family: Yes Interval History Identifying Information ZOHRA DYSON is a 33-year-old woman who currently lives in [place] with her mom, two brothers, and brother's girlfriend, has a history of depression, anxiety, possible bipolar disorder, and was admitted on 06/03/24 03:12 on a 201 voluntary commitment for hallucinations and psychosis. Chief Complaint Anxiety Review of Systems Sleep Information Total Hours of Sleep: 6.5 Sleep Comments: new admit at 0254 Meal Information Percent Meal Consumed - Breakfast: 100 Percent Meal Consumed - Lunch: 100 Percent Meal Consumed - Dinner: 50 Subjective Subjective Patient was seen & assessed and interval progress reviewed with treatment team nursing and social work Overnight patient slept 6.5 hours. Presenting stable behavior on the unit. On interview she reports no difficulties with urination. Reports voices are at baseline. Says that gabapentin has helped her with anxiety and back pain. Denies having racing thoughts. Reports being able to tolerate increase in Abilify and denies any side effects. Reports past suicide attempt many years ago and none recently. Denies history of self-harm. Reports mother has anxiety and unclear what medication she takes. She denies having any physical, sexual, or emotional abuse in childhood. She denies SI and HI. 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 Physical Exam Mental Examination Appearance: Well Groomed Eye Contact: Maintains Eye Contact Motor Behavior: Unremarkable Speech: Normal Mood: Euthymic and Calm Affect: Calm, Constricted and Withdrawn Thought Process: Intact, [place], Goal Oriented and Logical Hallucinations: None Insight: Fair Judgement: Fair Vital Signs (Past 24 Hours) Last Vital Signs Temp 36.7 C 06/05/24 06:38 Pulse 90 06/05/24 06:39 Resp 16 06/05/24 06:38 BP 105/68 06/05/24 06:39 Pulse Ox 95 06/03/24 03:58 O2 Del Method Room Air 06/03/24 03:58 Results & Data ([facility]) Current Inpatient Medications Current Inpatient Medications: Current Inpatient Medications Acetaminophen (Acetaminophen 325 Mg Tab) 650 mg PO Q4H PRN PRN Reason: Headache or Minor Fever Stop: 07/03/24 05:46 Al Hydrox/Mg Hydrox/Simethicone (Aluminum/Magnesium Susp 30 Ml Udc) 30 ml PO Q4H PRN PRN Reason: GI Upset Stop: 07/03/24 05:46 Aripiprazole (Aripiprazole 10 Mg Tab) 10 mg PO QAM [facility] Stop: 07/05/24 08:59 Last Admin: 06/05/24 08:53 Dose: 10 mg Artificial Tears (Artificial Tears) 1 drops OPB QID PRN PRN Reason: Dryness Stop: 07/03/24 15:18 Bismuth Subsalicylate (Bismuth Subsalicylate 262 Mg Chew) 2 tab PO Q30M PRN PRN Reason: Loose Stool/Diarrhea Stop: 07/03/24 05:46 Gabapentin (Gabapentin 600 Mg Tab) 600 mg PO TID PAWEL Stop: 07/03/24 13:59 Last Admin: 06/05/24 14:26 Dose: 600 mg Hydroxyzine HCl (Hydroxyzine Hcl 25 Mg Tab) 50 mg PO HSZ PRN PRN Reason: Insomnia Stop: 07/03/24 05:46 Magnesium Hydroxide (Magnesium Hydroxide Susp 30 Ml Udc) 30 ml PO DAILY PRN PRN Reason: Constipation Stop: 07/03/24 05:46 Mirtazapine (Mirtazapine Tab 15 Mg Tab) 15 mg PO HS PAWEL Stop: 07/03/24 21:59 Last Admin: 06/04/24 21:34 Dose: 15 mg Miscellaneous (Remove Nicoderm Patch) 1 each N/A DAILY@0859 [facility] Stop: 07/03/24 08:58 Last Admin: 06/05/24 08:53 Dose: 1 each Nicotine (Nicotine 21 Mg/24 Hr Tdsy) 1 patch TD QAM PAWEL Stop: 07/03/24 08:59 Last Admin: 06/05/24 10:40 Dose: 1 patch Nicotine Polacrilex (Nicotine Polacrilex 2 Mg Gum) 2 piece MT Q2H PRN PRN Reason: replacement Stop: 07/03/24 05:51 Sodium Chloride (Sodium Chloride 0.65% Na Soln 45 Ml ([place])) 1 - 2 sprays NA PRN PRN PRN Reason: Nasal Dryness/Congestion Stop: 07/03/24 05:46 Trimethoprim/Sulfamethoxazole (Sulfamethoxazole/Trimethoprim Ds 800/160mg Tab) 1 tab PO Q12 PAWEL Stop: 06/05/24 21:01 Last Admin: 06/05/24 08:53 Dose: 1 tab Mental Health & Subst Abuse Tx Therapist Name of Therapist: N/A Human Resources Safety Manager Name of Human Resources Safety Manager: N/A Post Discharge Appointments Primary Care Physician Name Of Family Doctor/PCP: Ddr. Aldo Quiroga
[2024-06-05] MEDS: hydrOXYzine HCl 25 MG TAB PO PRN (21:25)
[2024-06-06] MEDS: ACETAMINOPHEN 325 MG TAB PO PRN (07:50)
--- NOTE | 2024-06-06 10:11 | Discharge Summary ---
Date of Service June 06, 2024 History of Present Illness Maria presents for psychiatric admission due to worsening anxiety and depressive symptoms as well as increased auditory hallucinations in the context of longstanding mental health issues and recent life stressors. She describes stressors including starting a new job and all her clothes "got ruined and stretched out, I don't know how it happened". She reports feeling hopeless and experiencing a sense of depersonalization, stating, 'I don't really feel like myself. Even when I look in the mirror, even when I look in the mirror I don't look like myself anymore.' She describes her current symptoms as feeling 'down and up pretty much at the same time,' with low energy and difficulty sleeping without Seroquel. Her anxiety manifests as excessive worry, shakiness, being easily overwhelmed, muscle tension, irritability, and twitching. She experiences panic attacks every couple of months. Maria also reports auditory hallucinations, that are present throughout the day, sometimes perceived as comforting and other times unwanted. She describes that her mind is "nonstop, it's hard for me to think, I don't think a lot of things". She hears voices that are recognizable (sounds like friends) and are talking constantly. She notes this has been really distracting. Sometimes she likes the voices being there and other times she doesn't. She notes "you don't have any privacy for anything". She denies any paranoia. She is currently prescribed gabapentin 600mg three times daily for anxiety and pain (seems to help a bit) and Seroquel 150mg at night, which she has been taking for over a year and a half. She reports that higher doses of Seroquel (up to 600mg) were not effective in managing her auditory hallucinations but she's been unable to stop it because then she struggles with sleep. Psychiatric ROS notable for auditory hallucinations, depressive symptoms, anxiety symptoms, and history of self-harm. No current suicidal ideation reported. History of substance use disorder, currently in remission. Physical Exam Mental Examination Appearance: Well Groomed Eye Contact: Maintains Eye Contact Motor Behavior: Unremarkable Speech: Normal Mood: Euthymic and Calm Affect: Calm, Constricted and Withdrawn Thought Process: Intact, [place], Goal Oriented and Logical Hallucinations: None Insight: Fair Judgement: Fair Vital Signs (Past 24 Hours) Last Vital Signs Temp 37.3 C 06/06/24 06:51 Pulse 88 06/06/24 06:52 Resp 16 06/06/24 06:51 BP 93/56 L 06/06/24 06:52 Pulse Ox 95 06/03/24 03:58 O2 Del Method Room Air 06/03/24 03:58 Principal Diagnosis Generalized anxiety disorder with panic attacks Psychiatric Data See daily stay summary. In short, safety was maintained and the patient was cooperative with care. Medication changes included starting Abilify 10mg daily and Mirtazapine 15mg HS and they tolerated this well. A family session was held and safety plan was completed prior to discharge. Day of Discharge Assessment Today the patient voices readiness for discharge. They note improvement in mood and deny thoughts to harm self or others. Thoughts remain organized and they are improved from admission. There is no evidence of psychosis. They agree to take mediations as prescribed and keep follow-up appointments. They are stable for discharge to outpatient level of care. Her complaints of hearing voices appear to be pseudo hallucinations that are secondary to anxiety states rather than a true psychosis. Does not appear to have a primary psychotic disorder. In addition has presented dissociation during high anxiety states. Patient is a poor historian at times provides conflicting information. Concern for cluster B personality disorder. She tolerated the Abilify well with an improvement in racing thoughts, improved mood with a brighter affect, denial of suicidal ideation. Prior to discharge she was future oriented presented a safe discharge plan. Transition of Care Transition Of Care Record: was reviewed with the patient Advance Directives Advance Directives Information Provided: Yes Advance Directives: No Mental Health Advance Directive: No Living Will: No Power of Fermentation Scientist: No Advance Directives Reason:: Declines as Mental Health Visit. Risk Factors Assessment Male: No : Yes Do You Have Access To A Gun?: No Health Problems: Yes (scoliosis) Mental Health Diagnoses: Yes Substance Use Disorders: No (in sustained remission) Previous Attempt: Yes Family History of Suicide: No Previous Psychiatric Hospitalization: Yes Hopelessness: Yes Protective Factors Assessment Employed: Yes Stable Relationships: Yes Supportive Family: Yes Discharge Data Lab Results 06/02/24 06/02/24 06/02/24 20:34 21:05 21:08 WBC Cancelled RBC Cancelled Hgb Cancelled Hct Cancelled MCV Cancelled MCH Cancelled MCHC Cancelled RDW Std Deviation Cancelled RDW Coeff of Mandy Cancelled Plt Count Cancelled MPV Cancelled Immature Gran % (Auto) Cancelled Neut % (Auto) Cancelled Lymph % (Auto) Cancelled [place] % (Auto) Cancelled Eos % (Auto) Cancelled Baso % (Auto) Cancelled Neut # (Auto) Cancelled Lymph # (Auto) Cancelled [place] # (Auto) Cancelled Eos # (Auto) Cancelled Baso # (Auto) Cancelled Immature Gran # (Auto) Cancelled Absolute Nucleated RBC Cancelled Nucleated RBC % (auto) Cancelled Neutrophils % (Manual) Cancelled Band Neutrophils % Cancelled Lymphocytes % (Manual) Cancelled Prolymphocyte % Cancelled Reactive Lymphs % (Man) Cancelled Monocytes % (Manual) Cancelled Eosinophils % (Manual) Cancelled Basophils % (Manual) Cancelled Metamyelocytes % (Man) Cancelled Myelocytes % (Man) Cancelled Promyelocytes % (Man) Cancelled Blast Cells % (Manual) Cancelled Plasma Cell % (Manual) Cancelled Other Cells % Cancelled Nucleated RBC % Cancelled Neutrophils # (Manual) Cancelled Band Neutrophils # Cancelled Total Absolute Neuts Cancelled Lymphocytes # (Manual) Cancelled Prolymphocyte # Cancelled Reactive Lymphs # Cancelled Total Abs Lymphocytes Cancelled Monocytes # (Manual) Cancelled Eosinophils # (Manual) Cancelled Basophils # (Manual) Cancelled Metamyelocytes # (Man) Cancelled Myelocytes # (Manual) Cancelled Promyelocytes # (Man) Cancelled Blast Cells # (Man) Cancelled Plasma Cell # (Manual) Cancelled Other Cells # Cancelled Nucleated RBCs # (Man) Cancelled Hypersegmented Neuts Cancelled Hyposegmented Neuts Cancelled Hypogranular Neuts Cancelled Large Granular Lymphs Cancelled # Lrg Granular Lymphs Cancelled Hairy Cells Cancelled Smudge Cells Cancelled Toxic Granulation Cancelled Toxic Vacuolation Cancelled Dohle Bodies Cancelled Kaitlyn Rods Cancelled Platelet Estimate Cancelled Hypogranular Platelets Cancelled Giant Platelets Cancelled Platelet Satelliting Cancelled RBC Morphology Cancelled Polychromasia Cancelled Hypochromasia Cancelled Poikilocytosis Cancelled Basophilic Stippling Cancelled Anisocytosis Cancelled Microcytosis Cancelled Macrocytosis Cancelled Spherocytes Cancelled Pappenheimer Bodies Cancelled Sickle Cells Cancelled Target Cells Cancelled Tear Drop Cells Cancelled Ovalocytes Cancelled Stomatocytes Cancelled [place] Bodies Cancelled Echinocytes Cancelled Acanthocytes (Spur) Cancelled Rouleaux Cancelled RBC Agglutinates Cancelled Schistocytes Cancelled Sezary Cell Cancelled Sodium 139 Potassium 4.5 Chloride 108 H Carbon Dioxide 23 Anion Gap 8 BUN 11 Creatinine 0.64 Est Cr Clr Drug Dosing 122.7 eGFR 120.34 BUN/Creatinine Ratio 17.2 Glucose 82 Estimat Average Glucose Hemoglobin A1c Calcium 9.6 Total Bilirubin 0.5 AST 52 H ALT 61 H Alkaline Phosphatase 43 Total Protein 6.7 Albumin 4.3 Globulin 2.4 L Albumin/Globulin Ratio 1.8 Triglycerides Cholesterol LDL Cholesterol, Calc VLDL Cholesterol, Calc HDL Cholesterol Cholesterol/HDL Ratio 25-OH Vitamin D Total TSH 0.779 HCG, Qual Negative Urine Color Yellow Urine Appearance Turbid A Urine pH 7.5 Ur Specific [place] 1.022 Urine Protein Negative Urine Glucose (UA) Negative Urine Ketones Negative Urine Blood Negative Urine Nitrite Positive A Urine Bilirubin Negative Urine Urobilinogen Negative Ur Leukocyte Esterase 2+ H Urine WBC (Auto) 21-50 H Urine RBC (Auto) 0-2 U Hyaline Cast (Auto) 0-2 U Epithel Cells (Auto) 6-10 H Urine Bacteria (Auto) 4+ H Salicylates < 3.0 L Urine Opiates Screen Neg Ur Methadone, Qual Neg Urine Fentanyl Screen Neg Acetaminophen < 3 L Urine Barbiturates Neg Ur Phencyclidine (PCP) Neg U Amphetamin/Meth Scrn Neg MDMA (Ecstasy) Screen Neg U Benzodiazepines Scrn Neg Ur Cocaine Metabolite Neg U Marijuana (THC) Screen Neg Ethyl Alcohol mg/dL Cancelled SARS-CoV-2, RNA, NAAT NEGATIVE Blood Parasites ID Cancelled 06/02/24 06/02/24 06/04/24 22:39 23:57 07:06 WBC 6.41 RBC 4.39 Hgb 14.2 Hct 40.3 MCV 91.8 MCH 32.3 MCHC 35.2 RDW Std Deviation 39.0 RDW Coeff of Mandy 11.5 Plt Count 166 MPV 9.5 Immature Gran % (Auto) 0.2 Neut % (Auto) 51.2 Lymph % (Auto) 34.5 [place] % (Auto) 10.6 Eos % (Auto) 3.0 Baso % (Auto) 0.5 Neut # (Auto) 3.29 Lymph # (Auto) 2.21 [place] # (Auto) 0.68 H Eos # (Auto) 0.19 Baso # (Auto) 0.03 Immature Gran # (Auto) 0.01 Absolute Nucleated RBC Nucleated RBC % (auto) Neutrophils % (Manual) Band Neutrophils % Lymphocytes % (Manual) Prolymphocyte % Reactive Lymphs % (Man) Monocytes % (Manual) Eosinophils % (Manual) Basophils % (Manual) Metamyelocytes % (Man) Myelocytes % (Man) Promyelocytes % (Man) Blast Cells % (Manual) Plasma Cell % (Manual) Other Cells % Nucleated RBC % Neutrophils # (Manual) Band Neutrophils # Total Absolute Neuts Lymphocytes # (Manual) Prolymphocyte # Reactive Lymphs # Total Abs Lymphocytes Monocytes # (Manual) Eosinophils # (Manual) Basophils # (Manual) Metamyelocytes # (Man) Myelocytes # (Manual) Promyelocytes # (Man) Blast Cells # (Man) Plasma Cell # (Manual) Other Cells # Nucleated RBCs # (Man) Hypersegmented Neuts Hyposegmented Neuts Hypogranular Neuts Large Granular Lymphs # Lrg Granular Lymphs Hairy Cells Smudge Cells Toxic Granulation Toxic Vacuolation Dohle Bodies Kaitlyn Rods Platelet Estimate Hypogranular Platelets Giant Platelets Platelet Satelliting RBC Morphology Polychromasia Hypochromasia Poikilocytosis Basophilic Stippling Anisocytosis Microcytosis Macrocytosis Spherocytes Pappenheimer Bodies Sickle Cells Target Cells Tear Drop Cells Ovalocytes Stomatocytes [place]loan-[place] Bodies Echinocytes Acanthocytes (Spur) Rouleaux RBC Agglutinates Schistocytes Sezary Cell Sodium Potassium Chloride Carbon Dioxide Anion Gap BUN Creatinine Est Cr Clr Drug Dosing eGFR BUN/Creatinine Ratio Glucose Estimat Average Glucose 91 Hemoglobin A1c 4.8 Calcium Total Bilirubin AST ALT Alkaline Phosphatase Total Protein Albumin Globulin Albumin/Globulin Ratio Triglycerides 89 Cholesterol 105 LDL Cholesterol, Calc 52 VLDL Cholesterol, Calc 18 HDL Cholesterol 35 Cholesterol/HDL Ratio 3.0 25-OH Vitamin D Total 21.3 L TSH HCG, Qual Urine Color Urine Appearance Urine pH Ur Specific [place] Urine Protein Urine Glucose (UA) Urine Ketones Urine Blood Urine Nitrite Urine Bilirubin Urine Urobilinogen Ur Leukocyte Esterase Urine WBC (Auto) Urine RBC (Auto) U Hyaline Cast (Auto) U Epithel Cells (Auto) Urine Bacteria (Auto) Salicylates Urine Opiates Screen Ur Methadone, Qual Urine Fentanyl Screen Acetaminophen Urine Barbiturates Ur Phencyclidine (PCP) U Amphetamin/Meth Scrn MDMA (Ecstasy) Screen U Benzodiazepines Scrn Ur Cocaine Metabolite U Marijuana (THC) Screen Ethyl Alcohol mg/dL < 10.0 SARS-CoV-2, RNA, NAAT Blood Parasites ID Hospital Course (1) Generalized anxiety disorder with panic attacks: (2) Cluster B personality disorder: (3) Pseudohallucinations: (4) Depersonalization: Plan 06/05/2024: Continue medications and treatment plan 06/04/2024: Increase aripiprazole to 10 mg daily Questionnaires: Anselmo borderline personality screener and brief dissociative symptoms scale 06/03/2024: The patient was admitted to the [facility] on q15 min checks (behavioral with suicide precautions) for safety. The patient will participate in group, recreational, and milieu therapies and will be offered additional individual and family sessions as clinically appropriate. -start Bactrim 160/800mg BID for 3 days for UTI -start mirtazapine 15mg HS -Start abilify 5mg daily -continue prior to admission gabapentin 600mg TID -Stop Seroquel 150mg HS -Fasting lipid panel, HbA1c and Vit D tomorrow morning -Consider option to add SSRI vs additional mood stabilization pending response to above changes Mental Health & Subst Abuse Tx Psychiatrist Name of Psychiatrist: Antelmo Haines Psychiatrist's Date Of Appointment With Psychiatric Provider: 08/19/24 Time of Appointment with Psychiatrist: 10:15 Psychiatric Appointment Comment: Will put on fast track for psychiatrist. Therapist Name of Therapist: Elva Hurtado Therapist's Date of Therapist Appointment: 06/15/2024 Time of Therapist Appointment: 10 AM Mattress Renovator Name of Mattress Renovator: N/A Post Discharge Appointments Primary Care Physician Name Of Family Doctor/PCP: Dr. Aldo Quiroga Primary Care Date of Future Appointment with PCP: 06/09/24 Time of Appointment with PCP: 10:00 Am Provider Appointment Comment: With Dr. Sales @ [place] office Discharge Plan Discharge Items Patient Disposition: Home - Self-Care Reason For Visit: AUDITORY HAAUCINATIONS,DEPRESSION Discharge Diagnosis: Generalized anxiety disorder with panic attacks: Cluster B Personality Disorder Pseudohallucinations Dissociation Condition on Discharge: Fair Activity: Resume your previous activity Non-emergency contact: Primary Care Provider, Psychiatrist and Therapist Call non-emergency contact if: you have any medication questions and your symptoms worsen Follow-up/Referrals: Aldo Sinha MD [Primary Care Provider] - Diet: Regular Addtl Attending Provider Instructions: -Continue Abilify 10mg daily (Can be taken anytime of the day) -Continue Mirtazapine 15mg AT BEDTIME -Take Hydroxyzine 50mg NEEDED for sleep (can take half dose 25mg for anxiety) Pending Studies at Discharge: No Stand-Alone Forms: My [employer], Smoking Cessation Medications and DC Order Prescriptions: New nicotine (polacrilex) [Nicorette] 2 mg Gum 2 mg MT Q2H PRN (Reason: nicotine cravings) Qty: 120 0RF mirtazapine 15 mg Tablet 15 mg PO HS Qty: 30 0RF aripiprazole [Abilify] 10 mg Tablet 10 mg PO QAM Qty: 30 0RF hydroxyzine HCl 50 mg tablet 50 mg PO HSZ PRN (Reason: anxiety/insomnia) Qty: 30 0RF Continued gabapentin 600 mg tablet 600 mg PO TID Sublocade 300 mg/1.5 mL solution, extended rel syringe 300 mg SUBCUT MONTHLY Discontinued quetiapine 400 mg tablet 400 mg PO HS Discharge Orders: Discharge Order (Routine); Ordered 06/06/24 Ordered By: Jayjay Bermudez Admission Data Admit Date/Time: 06/03/24 03:12 Attending Provider: Jayjay Bermudez Admit Provider: Angela Ash Primary Care Provider: Aldo Sinha Coding [place] [address] D/C day mgmt > 30 min Patient Type Established History Detailed Exam Detailed Medical Decision Making High Complexity Diagnoses Generalized anxiety disorder with panic attacks F41.1; F41.0 Cluster B personality disorder F60.89 Pseudohallucinations R44.3 Depersonalization F48.1
[2024-06-06] MEDS ORDERED: PROPRANOLOL HCL 10 MG TAB PO SCH (14:45)
[2024-06-06] MEDS ORDERED: FLUoxetine HCL 10 MG CAP PO SCH (14:45)
[2024-06-06] MEDS ORDERED: LORazepam 1 MG TAB PO SCH (22:00)
[2024-06-06] MEDS ORDERED: ARIPiprazole 2 MG TAB PO SCH (22:00)
[2024-06-06] MEDS ORDERED: traZODone HCL 50 MG TAB PO SCH (22:00)
== END 2024-06-06 16:53 | disposition home or self-care (01) | DRG 880 ==
LOC: ED 20:19 → 3S 06-03 02:06 → SUATTDRO 06-03 03:12